=== PATIENT | male | born 1985 | race Caucasian/White ===

== ENCOUNTER 2018-03-24 23:25 | Emergency (ER) | payer OTHER ==
[2018-03-25] MEDS ORDERED: ASPIRIN 81 MG CHEWABLE TABLET ONE (00:10)
[2018-03-25] MEDS ORDERED: MORPHINE 4 MG/ML SYR ONE ×2 (00:59→03:51)
[2018-03-25] MEDS ORDERED: ONDANSETRON 4 MG/2 ML VIAL ONE (00:59)
[2018-03-25 03:23] LABS: Absolute Lymphocytes (CBC) 2.7 K/uL (0.7-4.9); Absolute Monocytes 0.6 K/uL (0.1-1.3); Absolute Neutrophil 4.4 K/uL (1.8-8.0); Basophils % 1.1 % (0-1.3); Eosinophils % 3.8 % (0-4.4); Hematocrit 44.4 % (39.6-49.0); Lymphocytes % 32.9 % (15.3-44.8); MPV 9.9 fL (7.6-11.3); Monocytes % 7.4 % (3.3-12.3); RBC Red Blood Cell Count 5.32 M/uL (4.33-5.43)
--- NOTE | 2018-03-25 03:30 | EDPHYS ---
Physician Documentation [facility] Name: Mat Black Age: 32 yrs Sex: Male : 1985 Arrival Date: 03/24/2018 Time: 23:26 Bed 7 Private MD: ED Physician Prakash Orr HPI: 03/25 00:57 This 32 yrs old Male presents to ER via Wheelchair with complaints of Chest pm1 Pain. 00:57 The patient or guardian reports chest pain that is located primarily in the mid-sternal pm1 area. 00:58 Associated signs and symptoms: Pertinent positives: shortness of breath, Pertinent pm1 negatives: abdominal pain, cough, diaphoresis, dizziness, headache, nausea, near syncope, palpitations, vomiting. The chest pain is described as "Pain". Duration: The patient or guardian reports a single episode, that is still ongoing. Modifying factors: The symptoms are alleviated by nothing. the symptoms are aggravated by exertion. Severity of pain: in the emergency department the pain is unchanged. The patient has not experienced similar symptoms in the past. The patient has not recently seen a physician. Historical: - Allergies: 03/24 23:43 No Known Allergies; ak1 - Home Meds: 23:43 Lisinopril Oral [Active]; Metformin Oral [Active]; carvedilol oral oral [Active]; ak1 Lantus Sub-Q [Active]; Novolog Sub-Q [Active]; - PMHx: 23:43 Diabetes - IDDM; Hyperlipidemia; Hypertension; ak1 - PSHx: 23:43 right knee; left ankle; ak1 - Immunization history:: Adult Immunizations unknown. - Social history:: Smoking status: Patient uses tobacco products, denies chronic smoking, but will smoke occasionally, chewing tobacco, Patient uses alcohol, but reports only rare drinking. - Ebola Screening: : No symptoms or risks identified at this time. ROS: 03/25 00:58 Constitutional: Negative for fever, chills, and weight loss, Eyes: Negative for injury, pm1 pain, redness, and discharge, ENT: Negative for injury, pain, and discharge, Neck: Negative for injury, pain, and swelling. Abdomen/GI: Negative for abdominal pain, nausea, vomiting, diarrhea, and constipation, Back: Negative for injury and pain, : Negative for injury, bleeding, discharge, and swelling. MS/Extremity: Negative for injury and deformity, Skin: Negative for injury, rash, and discoloration, Neuro: Negative for headache, weakness, numbness, tingling, and seizure. Cardiovascular: Positive for chest pain, Negative for edema, orthopnea, palpitations. Respiratory: Positive for shortness of breath, on exertion. Exam: 00:58 Constitutional: This is a well developed, well nourished patient who is awake, alert, pm1 and in no acute distress. Head/Face: Normocephalic, atraumatic. Eyes: Pupils equal round and reactive to light, extra-ocular motions intact. Lids and lashes normal. Conjunctiva and sclera are non-icteric and not injected. Cornea within normal limits. Periorbital areas with no swelling, redness, or edema. ENT: Nares patent. No nasal discharge, no septal abnormalities noted. Tympanic membranes are normal and external auditory canals are clear. Oropharynx with no redness, swelling, or masses, exudates, or evidence of obstruction, uvula midline. Mucous membranes moist. Neck: Trachea midline, no thyromegaly or masses palpated, and no cervical lymphadenopathy. Supple, full range of motion without nuchal rigidity, or vertebral point tenderness. No Meningismus. Chest/axilla: Normal chest wall appearance and motion. Nontender with no deformity. No lesions are appreciated. Cardiovascular: Regular rate and rhythm with a normal S1 and S2. No gallops, murmurs, or rubs. Normal PMI, no JVD. No pulse deficits. Respiratory: Lungs have equal breath sounds bilaterally, clear to auscultation and percussion. No rales, rhonchi or wheezes noted. No increased work of breathing, no retractions or nasal flaring. Abdomen/GI: Soft, non-tender, with normal bowel sounds. No distension or tympany. No guarding or rebound. No evidence of tenderness throughout. Back: No spinal tenderness. No costovertebral tenderness. Full range of motion. Skin: Warm, dry with normal turgor. Normal color with no rashes, no lesions, and no evidence of cellulitis. MS/ Extremity: Pulses equal, no cyanosis. Neurovascular intact. Full, normal range of motion. 00:58 ECG was reviewed by the Attending Physician. NSR Vital Signs: 03/24 23:26 BP 166 / 107; Pulse 98; Resp 18; Temp 97.8(O); Pulse Ox 98% on R/A; Weight 136.08 kg ak1 (R); Height 5 ft. 10 in. (177.80 cm) (R); Pain 7/10; 03/25 00:37 BP 139 / 95; Pulse 84; Resp 18; Pulse Ox 99% ; ea 01:34 BP 138 / 90; Pulse 79; Resp 18; Pulse Ox 96% on R/A; tl2 03:49 BP 130 / 91; Pulse 73; Resp 18; Pulse Ox 96% on R/A; tl2 03/24 23:26 Body Mass Index 43.05 (136.08 kg, 177.80 cm) ak1 MDM: 03/24 23:40 Patient medically screened. pm1 03/25 01:00 Data reviewed: vital signs. Data interpreted: Pulse oximetry: on room air is 99 %. pm1 Interpretation: normal. 03:21 Refusal of service: The patient/guardian displays adequate decision making capability pm1 and despite a detailed discussion of alternatives, benefits, risks, and consequences refuses: Admission to the hospital for further work-up and treatment, Patient does not want to stay in the hospital. He wants to follow up with his PCP. He wants some pain medication prior to going home.. 03/24 23:46 Order name: Basic Metabolic Panel pm1 03/24 23:46 Order name: CBC with Diff pm1 03/24 23:46 Order name: LFT's pm1 03/24 23:46 Order name: Magnesium pm1 03/24 23:46 Order name: NT PRO-BNP pm1 03/24 23:46 Order name: PT-INR pm1 03/24 23:46 Order name: Troponin (emerg Dept Use Only) pm1 03/24 23:46 Order name: XRAY Chest (1 view) pm1 03/24 23:46 Order name: EKG; Complete Time: 23:47 pm1 03/24 23:46 Order name: Basic Metabolic Panel EDMS 03/24 23:46 Order name: Cardiac monitoring; Complete Time: 23:48 pm1 03/24 23:46 Order name: EKG - Nurse/Tech; Complete Time: 23:48 pm1 03/24 23:46 Order name: IV Saline Lock; Complete Time: 00:03 pm1 03/24 23:46 Order name: Labs collected and sent; Complete Time: 00:02 pm1 03/24 23:46 Order name: O2 Per Protocol; Complete Time: 00:02 pm1 03/24 23:46 Order name: O2 Sat Monitoring; Complete Time: 00:03 pm1 Administered Medications: 00:01 Drug: Aspirin 325 mg Route: PO; ea 01:01 Follow up: Response: No adverse reaction ea 00:56 Drug: Zofran 4 mg Route: IVP; Site: right forearm; ea 01:30 Follow up: Response: No adverse reaction; Pain is decreased ea 00:59 Drug: morphine 4 mg Route: IVP; Site: right forearm; ea 01:30 Follow up: Response: No adverse reaction; Pain is decreased ea 03:46 Drug: morphine 4 mg Route: IVP; Site: right forearm; tl2 03:51 Follow up: Response: No adverse reaction; Medication administered at discharge. tl2 Disposition: 05:43 Co-signature as Attending Physician, Prakash Orr MD I agree with the assessment and tw4 plan of care. Disposition: 03/25/18 03:29 Patient has left against medical advice. Impression: Chest pain, unspecified. - Patients states they are going to Home. - Condition is Stable. - Discharge Instructions: Nonspecific Chest Pain. Follow up: Private Physician; When: Upon discharge from the Emergency Department; Reason: Recheck today's complaints, Continuance of care, Re-evaluation by your physician. Follow up: Carlos Yin MD; When: Upon discharge from the Emergency Department; Reason: Recheck today's complaints, Continuance of care, Re-evaluation by your physician. - Problem is new. - Symptoms have improved. Signatures: Dispatcher [employer] EDMS Rachelle King RN RN ak1 Rahat Baer NP RESIDENCE DIRECTOR pm1 Tonja Purdy RN RN tl2 Eden Islas RN RN ea Wadley, Terrence, MD MD tw4 Corrections: (The following items were deleted from the chart) 04:05 03:29 03/25/2018 03:29 Patients has left against medical advice. Impression: Chest tl2 pain, unspecified. Patient states they are going to Home. Condition is Stable. Follow up: Private Physician; When: Upon discharge from the Emergency Department; Reason: Recheck today's complaints, Continuance of care, Re-evaluation by your physician. Follow up: Carlos Yin; When: Upon discharge from the Emergency Department; Reason: Recheck today's complaints, Continuance of care, Re-evaluation by your physician. Problem is new. Symptoms have improved. pm1
--- NOTE | 2018-03-25 03:30 | ER ---
Nurse's Notes [facility] Name: Mat Black Age: 32 yrs Sex: Male : 1985 Arrival Date: 03/24/2018 Time: 23:26 Bed 7 Private MD: Diagnosis: Chest pain, unspecified Presentation: 03/24 23:26 Presenting complaint: Patient states: central chest pain started Saturday. pt c/o SOB ak1 with ambulation. pt c/o increased stress at work. pt stated he is non compliant with home medications. 23:26 Transition of care: patient was not received from another setting of care. Onset of ak1 symptoms was March 23, 2018. Risk Assessment: Do you want to hurt yourself or someone else? Patient reports no desire to harm self or others. Initial Sepsis Screen: Does the patient meet any 2 criteria? No. Patient's initial sepsis screen is negative. Does the patient have a suspected source of infection? No. Patient's initial sepsis screen is negative. Care prior to arrival: None. 23:26 Method Of Arrival: Wheelchair ak1 23:26 Acuity: LILA 3 ak1 Triage Assessment: 23:43 General: Appears in no apparent distress. Behavior is calm, cooperative, pt testing ak1 during triage questions.. Pain: Complains of pain in xyphoid area and mid-sternal area. EENT: No signs and/or symptoms were reported regarding the EENT system. Neuro: No deficits noted. Cardiovascular: Reports chest pain, shortness of breath. Respiratory: Reports shortness of breath on exertion since Today. GI: No signs and/or symptoms were reported involving the gastrointestinal system. : No signs and/or symptoms were reported regarding the genitourinary system. Derm: No signs and/or symptoms reported regarding the dermatologic system. Musculoskeletal: No signs and/or symptoms reported regarding the musculoskeletal system. Historical: - Allergies: 23:43 No Known Allergies; ak1 - Home Meds: 23:43 Lisinopril Oral [Active]; Metformin Oral [Active]; carvedilol oral oral [Active]; ak1 Lantus Sub-Q [Active]; Novolog Sub-Q [Active]; - PMHx: 23:43 Diabetes - IDDM; Hyperlipidemia; Hypertension; ak1 - PSHx: 23:43 right knee; left ankle; ak1 - Immunization history:: Adult Immunizations unknown. - Social history:: Smoking status: Patient uses tobacco products, denies chronic smoking, but will smoke occasionally, chewing tobacco, Patient uses alcohol, but reports only rare drinking. - Ebola Screening: : No symptoms or risks identified at this time. Screenin:46 Abuse screen: Denies threats or abuse. Denies injuries from another. Nutritional ak1 screening: No deficits noted. Tuberculosis screening: No symptoms or risk factors identified. Fall Risk None identified. Assessment: 23:46 Pain: Pain does not radiate. Pain began 1 day ago. ak1 03/25 00:30 Reassessment: lab unable to run blood sample due to blood being lipemic. Scowman tl2 at bedside to redraw blood. 00:46 Reassessment: Patient and/or family updated on plan of care and expected duration. Pain ea level reassessed. Pt complaining of chest pain 10, provider notified, medication administered. Pt tolerated well. No s/s of pain or discomfort noted at this time. 01:46 Reassessment: Patient and/or family updated on plan of care and expected duration. Pain ea level reassessed. Patient is alert, oriented x 3, equal unlabored respirations, skin warm/dry/pink. 02:30 Reassessment: Second blood sample failed, lab at bedside to redraw blood. tl2 02:37 Reassessment: Patient and/or family updated on plan of care and expected duration. Pain ea level reassessed. Patient is alert, oriented x 3, equal unlabored respirations, skin warm/dry/pink. Pt reports pain is decreased. 03:49 Reassessment: Pt states that he does not want to wait for blood samples and wants to tl2 leave AMA. MARINE FUEL DOCK ATTENDANT at bedside to explain risks of leaving AMA, patient verbalized understanding and states he will follow up with PCP. AMA form signed, notified and signed form. Vital Signs: 03/24 23:26 BP 166 / 107; Pulse 98; Resp 18; Temp 97.8(O); Pulse Ox 98% on R/A; Weight 136.08 kg ak1 (R); Height 5 ft. 10 in. (177.80 cm) (R); Pain 7/10; 03/25 00:37 BP 139 / 95; Pulse 84; Resp 18; Pulse Ox 99% ; ea 01:34 BP 138 / 90; Pulse 79; Resp 18; Pulse Ox 96% on R/A; tl2 03:49 BP 130 / 91; Pulse 73; Resp 18; Pulse Ox 96% on R/A; tl2 03/24 23:26 Body Mass Index 43.05 (136.08 kg, 177.80 cm) ak1 ED Course: 03/24 23:26 Patient arrived in ED. ds1 23:32 EKG completed in triage. Results shown to MD. ak1 23:32 Arm band placed on Patient placed in an exam room, on a stretcher, on pulse oximetry, ak1 Patient notified of wait time. 23:40 Triage completed. ak1 23:40 Rahat Baer NP is PHCP. pm1 23:40 Prakash Orr MD is Attending Physician. pm1 23:46 Patient has correct armband on for positive identification. Placed in gown. Bed in low ak1 position. Call light in reach. Side rails up X 1. Pulse ox on. NIBP on. 23:46 Patient maintains SpO2 saturation greater than 95% on room air. ak1 23:47 Eden Islas, BRANDON is Primary Nurse. ea 03/25 00:03 Inserted saline lock: 22 gauge in right forearm, using aseptic technique. Blood tl2 collected. 00:11 X-ray completed. Portable x-ray completed in exam room. Patient tolerated procedure jb2 well. 00:35 XRAY Chest (1 view) In Process Unspecified. EDMS 03:29 Carlos Yin MD is Referral Physician. pm1 03:49 No provider procedures requiring assistance completed. IV discontinued, intact, tl2 bleeding controlled, No redness/swelling at site. Pressure dressing applied. Administered Medications: 00:01 Drug: Aspirin 325 mg Route: PO; ea 01:01 Follow up: Response: No adverse reaction ea 00:56 Drug: Zofran 4 mg Route: IVP; Site: right forearm; ea 01:30 Follow up: Response: No adverse reaction; Pain is decreased ea 00:59 Drug: morphine 4 mg Route: IVP; Site: right forearm; ea 01:30 Follow up: Response: No adverse reaction; Pain is decreased ea 03:46 Drug: morphine 4 mg Route: IVP; Site: right forearm; tl2 03:51 Follow up: Response: No adverse reaction; Medication administered at discharge. tl2 Outcome: 03:49 AMA AMA form signed tl2 03:49 Condition: stable 03:49 Discharge instructions given to patient, family, Instructed on discharge instructions, follow up and referral plans. Demonstrated understanding of instructions, follow-up care. 04:05 Patient left the ED. tl2 Signatures: Dispatcher [employer] EDMS Cr Han jb2 Marva Rizo ds1 Rachelle King RN RN ak1 Rahat Baer, SUSANA MARINE FUEL DOCK ATTENDANT pm1 Tonja Purdy RN RN tl2 Eden Islas RN RN ea Corrections: (The following items were deleted from the chart) 00:39 00:37 BP 107 / 74; Pulse 74bpm; Resp 18bpm; Pulse Ox 99%; ea ea
[2018-03-25 04:18] LABS: ALT/SGPT 87 U/L (12-78); AST/SGOT 52 U/L (15-37); Albumin 3.3 g/dL (3.4-5.0); Alkaline Phosphatase 115 U/L (45-117); BUN Blood Urea Nitrogen 21 mg/dL (7-18); Bicarbonate 26 mmol/L (21-32); Bilirubin Direct < 0.1 mg/dL (0-0.2); Bilirubin Total 0.2 mg/dL (0.2-1.0); Glucose Level 305 mg/dL (74-106); Magnesium 1.9 mg/dL (1.8-2.4); NT PRO-BNP 209 pg/mL (<125); Protein, Total 6.8 g/dL (6.4-8.2); Sodium Level 138 mmol/L (136-145)
[2018-03-25 04:19] LABS: Potassium ND mmol/L (3.5-5.1); Troponin (Emerg Dept Use Only) 0.67 ng/mL (0.0-0.045)
[2018-03-25] MEDS ORDERED: NITROGLYCERIN 1 GM PKT TD ONE (05:12)
[2018-03-25] MEDS ORDERED: ENOXAPARIN 100 MG/ML SYR SQ ONE (05:12)
[2018-03-25] MEDS ORDERED: ENOXAPARIN 30 MG/0.3 ML SQ ONE (05:13)
[2018-03-25 05:53] VITALS: TEMP 97.8
[2018-03-25 06:07] LABS: Protime INR 0.92
[2018-03-25 06:17] VITALS: O2SAT 96
[2018-03-25 06:18] VITALS: BP 130/91
--- NOTE | 2018-03-25 08:15 | RAD REPORT ---
EXAM DESCRIPTION: RAD - Chest Single View - 03/25/2018 12:14 am CLINICAL HISTORY: CHEST PAIN Chest pain. COMPARISON: No comparisons FINDINGS: Portable technique limits examination quality. The lungs are grossly clear. The heart is normal in size. No displaced fractures. IMPRESSION: No acute intrathoracic process suspected.
--- NOTE | 2018-03-25 17:10 | EKG ---
Test Date: 2018-03-24 Test Time: 23:32:54 Management Architect: HALEY MEASUREMENT RESULTS: Intervals: Rate: 87 VT: 140 QRSD: 86 QT: 350 QTc: 421 [place]: P: 25 VT: 140 QRS: 22 T: 10 INTERPRETIVE STATEMENTS: Normal sinus rhythm Normal ECG No previous ECG available for comparison Electronically Signed On 03-25-18 17:07:09 CUSHION SEWER by Zane Sanchez
== END 2018-03-25 04:05 | disposition left against medical advice (07) ==
LOC: ER 23:25
DX: R07.9 Chest pain, unspecified (principal); I10 Essential (primary) hypertension; E78.5 Hyperlipidemia, unspecified; E11.9 Type 2 diabetes mellitus without complications; Z72.0 Tobacco use; Z79.4 Long term (current) use of insulin
CPT/HCPCS: 36415; 71045; 80048; 80076; 83735; 83880; 84484; 85025; 85610; 93005; 96374; 96375; 99284; J1650; J2405

== ENCOUNTER 2018-03-25 04:33 | Inpatient (IN) | payer OTHER ==
--- NOTE | 2018-03-25 05:01 | EDPHYS ---
Physician Documentation [facility] Name: Mat Black Age: 32 yrs Sex: Male : 1985 Arrival Date: 03/25/2018 Time: 04:34 Bed 7 Private MD: ED Physician Prakash Orr HPI: 03/25 04:56 This 32 yrs old Male presents to ER via Ambulatory with complaints of Chest tw4 Pain. 04:56 The patient or guardian reports chest pain that is located primarily in the substernal tw4 area. The pain does not radiate. Associated signs and symptoms: The patient has no apparent associated signs or symptoms. The chest pain is described as a heaviness. Duration: The patient or guardian reports a single episode, that is now resolved. Modifying factors: The symptoms are alleviated by nothing. the symptoms are aggravated by nothing. Severity of pain: At its worst the pain was moderate in the emergency department the pain is unchanged. The patient has not experienced similar symptoms in the past. Historical: - Allergies: 04:49 No Known Allergies; tl2 - Home Meds: 04:49 carvedilol Oral [Active]; Lantus Sub-Q [Active]; Metformin Oral [Active]; Novolog Sub-Q tl2 [Active]; losartan oral oral [Active]; - PMHx: 04:49 Diabetes - IDDM; Hyperlipidemia; Hypertension; tl2 - PSHx: 04:49 Hernia repair; tl2 - Immunization history:: Adult Immunizations up to date, Adult Immunizations up to date. - Social history:: Smoking status: Patient/guardian denies using tobacco, Smoking status: Patient/guardian denies using tobacco. - Ebola Screening: : No symptoms or risks identified at this time No symptoms or risks identified at this time. ROS: 04:56 Constitutional: Negative for fever, chills, and weight loss, Eyes: Negative for injury, tw4 pain, redness, and discharge, Respiratory: Negative for shortness of breath, cough, wheezing, and pleuritic chest pain, Abdomen/GI: Negative for abdominal pain, nausea, vomiting, diarrhea, and constipation, Back: Negative for injury and pain, MS/Extremity: Negative for injury and deformity, Skin: Negative for injury, rash, and discoloration, Neuro: Negative for headache, weakness, numbness, tingling, and seizure. 04:56 Cardiovascular: Positive for chest pain, Negative for edema, orthopnea, palpitations, paroxysmal nocturnal dyspnea. Exam: 04:56 Constitutional: This is a well developed, well nourished patient who is awake, alert, tw4 and in no acute distress. Head/Face: Normocephalic, atraumatic. Chest/axilla: Normal chest wall appearance and motion. Nontender with no deformity. No lesions are appreciated. Cardiovascular: Regular rate and rhythm with a normal S1 and S2. No gallops, murmurs, or rubs. Normal PMI, no JVD. No pulse deficits. Respiratory: Lungs have equal breath sounds bilaterally, clear to auscultation and percussion. No rales, rhonchi or wheezes noted. No increased work of breathing, no retractions or nasal flaring. Abdomen/GI: Soft, non-tender, with normal bowel sounds. No distension or tympany. No guarding or rebound. No evidence of tenderness throughout. Back: No spinal tenderness. No costovertebral tenderness. Full range of motion. MS/ Extremity: Pulses equal, no cyanosis. Neurovascular intact. Full, normal range of motion. Neuro: Awake and alert, GCS 15, oriented to person, place, time, and situation. Cranial nerves II-XII grossly intact. Motor strength 5/5 in all extremities. Sensory grossly intact. Cerebellar exam normal. Normal gait. Vital Signs: 04:49 BP 140 / 104; Pulse 97; Resp 18; Temp 97.8(O); Pulse Ox 97% on R/A; Weight 136.08 kg; tl2 Height 5 ft. 10 in. (177.80 cm); Pain 0/10; 05:53 BP 138 / 90; Pulse 90; Resp 18; Pulse Ox 97% on R/A; ea 04:49 Body Mass Index 43.05 (136.08 kg, 177.80 cm) tl2 MDM: 04:48 Patient medically screened. tw4 04:56 Differential diagnosis: abnormal EKG, acute myocardial infarction, cholecystitis, tw4 Cholelithiasis costochondritis, herpes zoster, hiatal hernia, peptic ulcer disease, pericarditis, pleurisy, pneumonia, pulmonary embolus, stable angina, thoracic aortic disection. Data reviewed: vital signs, nurses notes. Data interpreted: nurse monitoring: rhythm is normal sinus rhythm, Pulse oximetry: Interpretation: normal. Counseling: I had a detailed discussion with the patient and/or guardian regarding: the historical points, exam findings, and any diagnostic results supporting the discharge/admit diagnosis. Physician consultation: Charmaine Bolanos MD regarding admission, to the telemetry unit. patient's condition, need to evaluate the patient as soon as possible, and will see patient in inpatient room. 03/25 04:59 Order name: Lipid Profile tw4 03/25 05:21 Order name: Lipid Profile [facility] 03/25 05:21 Order name: Lipid Profile [facility] 03/25 05:21 Order name: Troponin I [facility] 03/25 05:21 Order name: Troponin I [facility] 03/25 05:21 Order name: Troponin I [facility] 03/25 05:22 Order name: CONS Physician Consult [facility] 03/25 05:22 Order name: Heart Healthy [facility] 03/25 05:22 Order name: Echo with Doppler [facility] 03/25 05:22 Order name: EKG Electrocardiogram [facility] 03/25 05:23 Order name: Lipase fc 03/25 05:23 Order name: Amylase, Serum fc 03/25 05:22 Order name: EKG Electrocardiogram [facility] EC:59 Rate is 94 beats/min. Rhythm is regular. QRS [place] is Normal. [place] interval is normal. QRS tw4 interval is normal. QT interval is normal. No Q waves. T waves are Normal. No ST changes noted. Clinical impression: NSR w/ Non-specific ST/T Changes and Abnormal EKG without significant change. Interpreted by me. Reviewed by me. Administered Medications: 05:07 Drug: Nitro-Bid Ointment 2 % 1 inches Route: Transdermal; Site: anterior chest wall; ea 05:09 Drug: Lovenox 1 mg/kg Route: Sub-Q; Site: left lower abdomen; ea 06:00 Follow up: Response: No adverse reaction ea Disposition: 03/25/18 05:00 Hospitalization ordered by Charmaine Bolanos for Inpatient Admission. Preliminary diagnosis are Non-ST elevation (NSTEMI) myocardial infarction, Hyperlipidemia, unspecified. - Bed requested for Telemetry/MedSurg (Inpatient). - Status is Inpatient Admission. ea - Condition is Fair. - Problem is new. - Symptoms have improved. UTI on Admission? No Signatures: Dispatcher [employer] Blanka Figueroa RN BRANDON cg Tonja Purdy RN RN tl2 Eden Islas RN RN ea Wadley, Terrence, MD MD tw4 Corrections: (The following items were deleted from the chart) 05:24 05:00 Hospitalization Ordered by Charmaine Bolnaos MD for Inpatient Admission. Preliminary cg diagnosis is Non-ST elevation (NSTEMI) myocardial infarction; Hyperlipidemia, unspecified. Bed requested for Telemetry/MedSurg (Inpatient). Status is Inpatient Admission. Condition is Fair. Problem is new. Symptoms have improved. UTI on Admission? No. tw4 06:21 05:24 03/25/2018 05:00 Hospitalization Ordered by Charmaine Bolanos MD for Inpatient ea Admission. Preliminary diagnosis is Non-ST elevation (NSTEMI) myocardial infarction; Hyperlipidemia, unspecified. Bed requested for Telemetry/MedSurg (Inpatient). Status is Inpatient Admission. Condition is Fair. Problem is new. Symptoms have improved. UTI on Admission? No. cg
--- NOTE | 2018-03-25 05:01 | ER ---
Nurse's Notes [facility] Name: Mat Black Age: 32 yrs Sex: Male : 1985 Arrival Date: 03/25/2018 Time: 04:34 Bed 7 Private MD: Diagnosis: Non-ST elevation (NSTEMI) myocardial infarction;Hyperlipidemia, unspecified Presentation: 03/25 04:45 Presenting complaint: Patient states: Pt had previously left AMA. Critical lab result tl2 came back with elevated troponin. MD notified and requested that we call pt to return to ED. Transition of care: patient was not received from another setting of care. Onset of symptoms was March 23, 2017. Risk Assessment: Do you want to hurt yourself or someone else? Patient reports no desire to harm self or others. Initial Sepsis Screen: Does the patient meet any 2 criteria? No. Patient's initial sepsis screen is negative. Does the patient have a suspected source of infection? No. Patient's initial sepsis screen is negative. Care prior to arrival: None. 04:45 Method Of Arrival: Ambulatory tl2 04:45 Acuity: LILA 2 tl2 Triage Assessment: 04:49 General: Appears in no apparent distress. comfortable, Behavior is calm, cooperative, tl2 appropriate for age. Pain: Denies pain. Neuro: Level of Consciousness is awake, alert, obeys commands, Oriented to person, place, time, situation. Cardiovascular: Chest pain resolved at this time. Pt received morphine at 0410. Respiratory: Airway is patent Respiratory effort is even, unlabored, Respiratory pattern is regular, symmetrical. GI: No signs and/or symptoms were reported involving the gastrointestinal system. : No signs and/or symptoms were reported regarding the genitourinary system. Derm: Skin is pink, warm \T\ dry. Historical: - Allergies: 04:49 No Known Allergies; tl2 - Home Meds: 04:49 carvedilol Oral [Active]; Lantus Sub-Q [Active]; Metformin Oral [Active]; Novolog Sub-Q tl2 [Active]; losartan oral oral [Active]; - PMHx: 04:49 Diabetes - IDDM; Hyperlipidemia; Hypertension; tl2 - PSHx: 04:49 Hernia repair; tl2 - Immunization history:: Adult Immunizations up to date, Adult Immunizations up to date. - Social history:: Smoking status: Patient/guardian denies using tobacco, Smoking status: Patient/guardian denies using tobacco. - Ebola Screening: : No symptoms or risks identified at this time No symptoms or risks identified at this time. Screenin:45 Abuse screen: Denies threats or abuse. Nutritional screening: No deficits noted. ea Tuberculosis screening: No symptoms or risk factors identified. Fall Risk IV access (20 points). Assessment: 04:49 General: see triage assessment. tl2 04:55 Pain: Pain does not radiate. Pain began 1 day ago. tl2 06:16 Reassessment: Patient appears in no apparent distress at this time. Patient and/or tl2 family updated on plan of care and expected duration. Pain level reassessed. Patient is alert, oriented x 3, equal unlabored respirations, skin warm/dry/pink. pt stable and ready for transport to floor. Vital Signs: 04:49 BP 140 / 104; Pulse 97; Resp 18; Temp 97.8(O); Pulse Ox 97% on R/A; Weight 136.08 kg; tl2 Height 5 ft. 10 in. (177.80 cm); Pain 0/10; 05:53 BP 138 / 90; Pulse 90; Resp 18; Pulse Ox 97% on R/A; ea 04:49 Body Mass Index 43.05 (136.08 kg, 177.80 cm) tl2 ED Course: 04:34 Patient arrived in ED. ds1 04:40 Arm band placed on right wrist. Patient placed in an exam room, on a stretcher, on ea ekg monitor, on pulse oximetry. 04:45 Tonja Purdy RN is Primary Nurse. tl2 04:45 Inserted saline lock: 20 gauge in right forearm, using aseptic technique. Patient ea maintains SpO2 saturation greater than 95% on room air. 04:46 Triage completed. tl2 04:46 Patient has correct armband on for positive identification. Placed in gown. Bed in low ea position. Call light in reach. bus monitor on. Pulse ox on. NIBP on. 04:48 Prakash Orr MD is Attending Physician. tw4 04:49 EKG completed in triage. Results shown to MD. tl2 04:59 Charmaine Bolanos MD is Hospitalizing Provider. tw4 05:52 No provider procedures requiring assistance completed. Patient admitted, IV remains in ea place. Administered Medications: 05:07 Drug: Nitro-Bid Ointment 2 % 1 inches Route: Transdermal; Site: anterior chest wall; ea 05:09 Drug: Lovenox 1 mg/kg Route: Sub-Q; Site: left lower abdomen; ea 06:00 Follow up: Response: No adverse reaction ea Outcome: 05:00 Decision to Hospitalize by Provider. tw4 05:10 Instructed on the need for admit, Demonstrated understanding of instructions. ea 06:16 Admitted to Tele accompanied by nurse, family with patient, via wheelchair, room 422. tl2 06:16 Condition: stable 06:16 Admitted to Med/surg accompanied by nurse, via wheelchair, room 422, on monitor, with ea chart, Report called to Alona TAYLOR 06:16 Condition: stable 06:21 Patient left the ED. ea Signatures: Marva Rizo ds1 Tonja Purdy RN RN tl2 Eden Islas RN RN Parkash Tellez MD MD tw4
[2018-03-25] MEDS ORDERED: ACETAMINOPHEN 500 MG TAB PO PRN (05:17)
[2018-03-25] MEDS ORDERED: ALPRAZOLAM 0.25 MG TABLET PO PRN (05:17)
[2018-03-25] MEDS ORDERED: MORPHINE 4 MG/ML SYR IV PRN ×2 (05:17→17:54)
[2018-03-25 06:02] LABS: Amylase Level 18 U/L (25-115); HDL Cholesterol 23 mg/dL (40-60); LDL Cholesterol, Calculated ND (<130); Lipase 225 U/L (73-393)
[2018-03-25 06:18] LABS: LDL, Direct 76 mg/dL (100-129)
[2018-03-25] MEDS: NA CHLORIDE 0.9% 1,000 ML IV SCH ×2 (06:47→12:44)
--- NOTE | 2018-03-25 07:16 | P.HP ---
Certification for Inpatient Patient admitted to: Inpatient With expected LOS: >2 Midnights Patient will require the following post-hospital care: None Practitioner: I am a practitioner with admitting privileges, knowledge of patient current condition, hospital course, and medical plan of care. Services: Services provided to patient in accordance with Admission requirements found in Title 42 Section 412.3 of the Code of Federal Regulations Patient History Date of Service: 03/25/18 Reason for admission: CHEST PAIN RULE OUT ACUTE CORONARY SYNDROME /NON STEMI History of Present Illness: Patient is a 32-year-old gentleman came into the hospital with sternal chest pain. Pain was radiating to his left arm. Patient is morbidly obese with a BMI of 43. He was short of breath he came into the hospital for further evaluation. Patient has a history of type 2 diabetes and hypertriglyceridemia. Patient's triglycerides were in the 3000. His initial troponin came back elevated at 0.67. It appears he was initially discharged from the emergency room but returned back to the emergency room. Still having pain of a 2/[address] on nitropaste on him. Cardiology is consulted. Patient will remain NPO. He will need a Cardiology evaluation this morning. Patient may need further intervention pending Cardiology recommendations. Continue with anti-platelet therapy, statin therapy, beta-yfn therapy, anticoagulation. Will get an echocardiogram as well. If patient's chest pain worsens patient may need to go to ICU. Patient will need to be inpatient admission because of his non ST elevation myocardial infarction. Allergies No Known Allergies Allergy (Unverified 03/25/18 05:39) Home Medications: Carvedilol 12.5 mg PO BID 03/25/18 Insulin Glargine,Hum.rec.anlog [Lantus Solostar] 75 units SQ BID 03/25/18 Insulin Lispro [Humalog] 25 unit SQ TIDWM 03/25/18 Losartan Potassium 25 mg PO DAILY 03/25/18 Metformin ER [Glucophage ER] 1,000 mg PO BID 03/25/18 - Past Medical/Surgical History -: Type 2 diabetes -: morbid obesity -: obesity hypoventilation syndrome -: hypertriglyceridemia Past Surgical History: Patient denies surgical history - Family History Father Medical History: Heart disease - Social History Smoking Status: Never smoker Alcohol use: No CD- Drugs: No Review of Systems 10-point ROS is otherwise unremarkable Physical Examination - Vital Signs Temperature: 97.8 F Blood Pressure: 138/90 Pulse: 90 Respirations: 18 Pulse Ox (%): 95 - Physical Exam General: Alert, In no apparent distress, Oriented x3 HEENT: Atraumatic, PERRLA, Mucous membr. moist/pink, EOMI, Sclerae nonicteric Neck: Supple, 2+ carotid pulse no bruit, No LAD, Without JVD or thyroid abnormality Respiratory: Clear to auscultation bilaterally, Normal air movement Cardiovascular: Regular rate/rhythm, Normal S1 S2, No murmurs Gastrointestinal: Normal bowel sounds, Soft and benign, Non-distended, No tenderness Musculoskeletal: No clubbing, No swelling, No tenderness Integumentary: No rashes Neurological: Normal gait, Normal speech, Normal strength at 5/5 x4 extr, Normal tone, Sensation intact, Cranial nerves 3-12 intact, Normal affect Lymphatics: No axilla or inguinal lymphadenopathy - Studies Laboratory Data (last 24 hrs) 03/25/18 05:08: Amylase 18 L, Lipase 225 03/25/18 05:08: Triglycerides 3355 H, Cholesterol 232 H, LDL Cholesterol Direct 76 L, HDL Cholesterol 23 L, Cholesterol/HDL Ratio 10.09 Assessment & Plan - Problems (Diagnosis) (1) Non-STEMI (non-ST elevated myocardial infarction) Current Visit: Yes Status: Acute (2) Type 2 diabetes mellitus Current Visit: Yes Status: Acute (3) Hypertriglyceridemia Current Visit: Yes Status: Acute - Plan 1. Serial troponins and EKG 2. Cardiology consultation 3. Echocardiogram and further testing pending cardiology evaluation and recommendations 4. Anti-platelet therapy, anti coagulation, beta-yfn, statin, nitropaste as needed, and O2 as needed 5. IV morphine for pain 6. Nitro p.r.n. 7. lopid/fish oil; repeat lipid profile in a.m. 8. hemoglobin A1c 9. GI and DVT prophylaxis Discharge Plan: Home Plan to discharge in: Greater than 2 days - Advance Directives Does patient have a Living Will: No Does patient have a Durable POA for Healthcare: No - Code Status/Comfort Care Code Status Assessed: Yes Code Status: Full Code Critical Care: No Time Spent Managing PTS Care (In Minutes): 50
[2018-03-25] MEDS ORDERED: NITROGLYCERIN 1 GM PKT TD ONE (07:19)
[2018-03-25] MEDS: INSULIN GLARGINE 100 UNITS/ML SQ SCH ×2 (09:00→22:06)
[2018-03-25] MEDS: ENOXAPARIN 40 MG/0.4 ML SQ SCH (09:00)
[2018-03-25] MEDS ORDERED: ASPIRIN 325 MG TAB PO SCH (09:00)
[2018-03-25] MEDS: GEMFIBROZIL 600 MG TAB PO SCH ×2 (09:34→22:09)
[2018-03-25] MEDS: METOPROLOL TAR 50 MG TAB PO SCH ×2 (09:35→22:06)
[2018-03-25] MEDS: DOCOSAHEXANOIC AC/EPA 1000 MG PO SCH ×2 (09:35→22:06)
[2018-03-25 10:03] VITALS: BMI 43.0
[2018-03-25] MEDS ORDERED: HEPA 1000U/500MLS 1,000 UNIT/500 ML BAG IV ONE (14:42)
[2018-03-25] MEDS ORDERED: MIDAZOLAM HCL 2 MG/2 ML INJ ONE (14:42)
[2018-03-25] MEDS ORDERED: LIDOCAINE 1% MPF 30 ML VIAL ONE (14:43)
[2018-03-25] MEDS ORDERED: NA CHLORIDE 0.9% 50 ML ONE (14:43)
[2018-03-25] MEDS ORDERED: FENTANYL CITR 100 MCG/2 ML ONE ×2 (14:43→15:46)
[2018-03-25] MEDS ORDERED: PRASUGREL (EFFIENT) 10 MG TAB ONE (16:17)
[2018-03-25] MEDS ORDERED: ASPIRIN 325 MG TAB ONE (16:17)
--- NOTE | 2018-03-25 17:09 | EKG ---
Test Date: 2018-03-25 Test Time: 04:38:30 Dog Handler Or Trainer: CARLITOS MEASUREMENT RESULTS: Intervals: Rate: 94 VA: 144 QRSD: 84 QT: 342 QTc: 427 [place]: P: 27 VA: 144 QRS: 10 T: 23 INTERPRETIVE STATEMENTS: Normal sinus rhythm Possible Anterior infarct, age undetermined Abnormal ECG Compared to ECG 03/24/2018 23:32:54 Myocardial infarct finding now present Electronically Signed On 03-25-18 17:07:01 CARPET INSPECTOR FINISHED by Zane Sanchez
--- NOTE | 2018-03-25 17:42 | ECHO ---
HEIGHT: 5 ft 10 in WEIGHT: 300 lb 0 oz DATE OF STUDY: 03/25/[address]: Charmaine Bolanos MD 2-DIMENSIONAL: YES M.MODE: YES DOPPLER: YES COLOR FLOW: YES TDS: YES PORTABLE: NO DEFINITY: NO BUBBLE STUDY: NO DIAGNOSIS: CHEST PAIN. RULE OUT ACUTE CORONARY SYNDROME CARDIAC HISTORY: CATHERIZATION: NO SURGERY: NO PROSTHETIC VALVE: NO PACEMAKER: NO MEASUREMENTS (cm) DIASTOLIC (NORMALS) SYSTOLIC (NORMALS) IVSd 1.3 (0.6-1.2) LA Diam 3.9 (1.9-4.0) LVEF 55% LVIDd 4.0 (3.5-5.7) LVIDs 2.9 (2.0-3.5) %FS 28% LVPWd 1.3 (0.6-1.2) Ao Diam 2.8 (2.0-3.7) 2 DIMENSIONAL ASSESSMENT: RIGHT ATRIUM: NORMAL LEFT ATRIUM: NORMAL RIGHT VENTRICLE: NORMAL LEFT VENTRICLE: NORMAL TRICUSPID VALVE: NORMAL MITRAL VALVE: NORMAL PULMONIC VALVE: NORMAL AORTIC VALVE: NORMAL PERICARDIAL EFFUSION: NONE AORTIC ROOT: NORMAL LEFT VENTRICULAR WALL MOTION: NORMAL. DOPPLER/COLOR FLOW: NORMAL. COMMENTS: TECHNICALLY DIFFICULT STUDY. GROSSLY NORMAL LEFT VENTRICULAR SIZE AND EJECTION FRACTION. NO WALL MOTION ABNORMALITIES. NO EFFUSION. TECHNOLOGIST: ESTHELA DIAZ RDCS
[2018-03-25] MEDS ORDERED: ZOLPIDEM TARTRATE 5 MG TABLET PO PRN (17:55)
[2018-03-25] MEDS ORDERED: NA CHLORIDE 0.9% 1,000 ML IV SCH (18:00)
[2018-03-25 19:49] VITALS: O2SAT 96
[2018-03-25 20:35] LABS: Urine Appearance CLEAR; Urine Bilirubin NEGATIVE (NEG); Urine Blood TRACE (NEG); Urine Color YELLOW; Urine Glucose 2+ (NEG); Urine Protein 2+ (NEG); Urine Specific Gravity >=1.030 (1.005-1.030)
[2018-03-25] MEDS ORDERED: ATORVASTATIN 80 MG TAB PO SCH (21:00)
[2018-03-25 21:22] LABS: Urine Microscopic Reflex ORDER UMIC
[2018-03-25 21:42] LABS: Urine Bacteria <20 /HPF (NONE SEEN); Urine Culture Reflex Order NOT NEEDED
--- NOTE | 2018-03-26 00:40 | CON ---
Date of Consultation: 03/25/2018 The patient was admitted to Dr. Bolanos's service on 03/25/2018, I saw the patient on 03/25/2018. Reason For Consultation: Non-ST elevation myocardial infarction. History Of Present Illness: Mr. 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 He has many risk factors including obesity, diabetes, hypertension, high cholesterol, and high triglyceride. He takes Coreg, metformin, insulin, and losartan at home. He is supposed to be on Lopid, but does not t shady it because of his schedule. He came in with classic symptoms for chest pain. The only atypical feature is that his symptoms lasted too long, but he has been having substernal chest pressure with e xertion that has been going on for about 3 days. The pain is constant. He has some shortness of edwin ath, but no diaphoresis, nausea, or vomiting. He denied PND, orthopnea, pedal edema, palpitations, o r syncope. Past Medical History: As stated above. Allergies: NONE. Review of Systems: Negative. Social History: Negative. Family History: Positive for heart disease. Medications: Listed earlier. Physical Examination: Vital Signs: Stable. He was afebrile. No acute distress. Sinus rhythm. HEENT: Negative. Neck: Supple, no bruit. Chest: Clear. Cardiac: Exam revealed a regular rhythm and rate. No murmurs, gallops, or rubs. Abdomen: Benign. Extremities: Revealed no clubbing, cyanosis, or edema. Diagnostic Data: Basically triglyceride was 3355, cholesterol of 232, HDL 23, and troponin 0.67. Impression And Plan: Non-ST elevation myocardial infarction in a very young patient with many risk f actors including obesity, diabetes, hypertension, and mixed dyslipidemia. He needs to be on aspirin. He needs to be on beta blockers like he is. He needs to be on insulin and losartan. Continue the metformin for now. He definitely needs to be on fenofibrate. He needs to have a heart catheterizati on to define his coronary anatomy. He understands the risk and the benefits of the procedure and he agrees to proceed. We will proceed with the procedure today. Case was discussed with the primary ca re physician. GYPSY/KHOI Voice ID: [id number] Report ID: [id number]
--- NOTE | 2018-03-26 03:02 | OP ---
Surgeon: Zane Sanchez MD Supervisor Whipped Topping: Jose R Mtz. Total conscious sedation was 45 minutes. The patient received aspirin, Effient, Angiomax during the procedure. He will be on aspirin, Plavix, and his home medication, and definitely an anti mixed dysl ipidemia medication. I will discuss that with his admitting physician. He can go home tomorrow. Procedure: Left heart catheterization with selective coronary arteriogram and right coronary artery stent. Indication: Non-ST elevation myocardial infarction. Description Of Procedure: The patient was prepped and draped in the routine sterile fashion in the c ath lab. He was given 4 mg of Versed and 100 of fentanyl for sedation. Right common femoral artery access was obtained with a 6-Hebrew sheath. Angio-Seal was used to close the case. Diagnostic santos terization revealed a normal left main. He had some moderate plaquing in the diagonal. The LAD was fairly normal. 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 His RCA was dominant. He had a 90% distal RCA lesion. A [place] wire with 3DRC guide with side hole and 3.0 x 12 Synergy stent were used to stent the distal RCA from 90% to 0%. There were no comp lications. Blood Loss: 5 cc. Postoperative Diagnosis: Status post successful primary right coronary artery stent. GYPSY/KHOI Voice ID: [id number] Report ID: [id number]
[2018-03-26 04:42] LABS: Absolute Lymphocytes (CBC) 1.9 K/uL (0.7-4.9); Absolute Monocytes 0.7 K/uL (0.1-1.3); Absolute Neutrophil 5.3 K/uL (1.8-8.0); Basophils % 0.6 % (0-1.3); Eosinophils % 3.7 % (0-4.4); Hematocrit 42.5 % (39.6-49.0); Lymphocytes % 23.3 % (15.3-44.8); RBC Red Blood Cell Count 5.14 M/uL (4.33-5.43)
[2018-03-26 05:05] LABS: HDL Cholesterol 25 mg/dL (40-60); LDL Cholesterol, Calculated ND (<130)
[2018-03-26 05:18] LABS: LDL, Direct 81 mg/dL (100-129)
[2018-03-26 05:30] LABS: Potassium 4.2 mmol/L (3.5-5.1)
[2018-03-26 08:39] VITALS: BP 136/83; TEMP 97.8
[2018-03-26] MEDS: DOCOSAHEXANOIC AC/EPA 1000 MG PO SCH (09:00)
[2018-03-26] MEDS ORDERED: CLOPIDOGREL 75 MG TABLET PO SCH (09:00)
[2018-03-26] MEDS ORDERED: ASPIRIN EC 81 MG TAB PO SCH (09:00)
[2018-03-26] MEDS: INSULIN GLARGINE 100 UNITS/ML SQ SCH (09:00)
[2018-03-26] MEDS: ENOXAPARIN 40 MG/0.4 ML SQ SCH (09:00)
[2018-03-26] MEDS: METOPROLOL TAR 50 MG TAB PO SCH (09:57)
[2018-03-26] MEDS: GEMFIBROZIL 600 MG TAB PO SCH (09:58)
--- NOTE | 2018-03-26 15:53 | EKG ---
Test Date: 2018-03-26 Test Time: 09:09:13 Space Engineer: JÚNIOR MEASUREMENT RESULTS: Intervals: Rate: 88 CT: 144 QRSD: 86 QT: 334 QTc: 404 [place]: P: 30 CT: 144 QRS: 18 T: -7 INTERPRETIVE STATEMENTS: Normal sinus rhythm Normal ECG Compared to ECG 03/25/2018 04:38:30 Anterior infarct finding is no longer present Electronically Signed On 03-26-18 15:53:30 GUN TESTER by Carlos Yin
--- NOTE | 2018-03-26 16:07 | P.SSS ---
Patient History Date of Service: 03/26/18 Reason for admission: CHEST PAIN RULE OUT ACUTE CORONARY SYNDROME /NON STEMI History of Present Illness: See HPI Allergies No Known Allergies Allergy (Unverified 03/25/18 05:39) Home Medications: Carvedilol 12.5 mg PO BID 03/25/18 Insulin Glargine,Hum.rec.anlog [Lantus Solostar] 75 units SQ BID 03/25/18 Insulin Lispro [Humalog] 25 unit SQ TIDWM 03/25/18 Losartan Potassium 25 mg PO DAILY 03/25/18 Metformin ER [Glucophage ER*] 1,000 mg PO BID 03/25/18 Atorvastatin Calcium [Lipitor] 80 mg PO BEDTIME #30 tab 03/26/18 Clopidogrel Bisulfate [Plavix*] 75 mg PO DAILY #30 tablet 03/26/18 Gemfibrozil [Lopid*] 600 mg PO BID #60 tab 03/26/18 - Past Medical/Surgical History Has patient received pneumonia vaccine in the past: No Diabetic: Yes -: Type 2 diabetes -: morbid obesity -: hypertriglyceridemia -: hypertriglyceridemia -: Left ankle Sx and Right Knee - Family History Father -: Heart disease - Social History Smoking Status: Never smoker Alcohol use: No CD- Drugs: No Caffeine use: Yes Place of Residence: Home Review of Systems 10-point ROS is otherwise unremarkable Physical Examination - Vital Signs Temperature: 97.8 F Blood Pressure: 136/83 Pulse: 80 Respirations: 20 Pulse Ox (%): 97 - Physical Exam General: Alert, In no apparent distress HEENT: Atraumatic, PERRLA, Mucous membr. moist/pink, EOMI, Sclerae nonicteric Neck: Supple, 2+ carotid pulse no bruit, No LAD, Without JVD or thyroid abnormality Respiratory: Clear to auscultation bilaterally, Normal air movement Cardiovascular: Regular rate/rhythm, Normal S1 S2 Gastrointestinal: Normal bowel sounds, No tenderness Musculoskeletal: No tenderness Integumentary: No rashes Neurological: Normal gait, Normal speech, Normal strength at 5/5 x4 extr, Normal tone, Normal affect Lymphatics: No axilla or inguinal lymphadenopathy - Diagnosis (Problem(s)) (1) Hypertriglyceridemia Onset Date: 03/26/18 Status: Acute (2) Non-STEMI (non-ST elevated myocardial infarction) Onset Date: 03/26/18 Status: Acute (3) Type 2 diabetes mellitus Onset Date: 03/26/18 Status: Acute Treatment Summary: Overall during the hospital stay patient remained stable Patient was initially admitted to the hospital for non ST elevation MS with troponin x2 elevated along with the EKG changes. Cardiology was consulted who recommended cardiac catheterization. Patient had cardiac catheterization done and had 2 stents placed in his PAEZ and OM. Patient started on aspirin Plavix and Lipitor gemfibrozil along with beta-yfn. Patient was asked to follow up with his primary care provider. Patient tolerated the procedure well and thus was discharged home under stable condition. Patient was asked to be on a low-fat low-cholesterol diet and establish care with a primary care provider to have adequate followup. Patient has to understanding and thus was discharged home under stable condition - Disposition Disposition: ROUTINE DISCHARGE Condition: GOOD Diet: Regular Activity: Ad carmelo
--- NOTE | 2018-03-26 20:14 | PN ---
Date of Progress Note: 03/26/2018 Mr. Black is a 32-year-old with unfortunate complicated past medical history of diabetes, hypertensi on, dyslipidemia. He came in with subendocardial AK yesterday. Catheterization showed a severe dist al RCA stenosis. He had a stent placed, a 3.0 x 12 Synergy stent with 0% residual. 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 The circumflex and LAD were clear of disease. The patient is on aspirin, Plavix. He will be sent home on aspirin and Plav ix, continue his home medication and also added TriCor 145 mg daily. Overnight he did well. No ches t pain. The right groin is intact. Telemetry showed sinus rhythm. He will see me in the office in 2 weeks. DANELLE Voice ID: [id number] Report ID: [id number]
== END 2018-03-26 10:04 | disposition home or self-care (01) | DRG 246 ==
LOC: ER 04:33 → OBSVTOIN 05:40 → ERHOLD 05:40 → 4TH 05:54
PROVIDERS: ADMIT Hospitalist; ATTEND Family Medicine
PROC: 4A023N7 Measurement of Cardiac Sampling and Pressure, Left Heart, Percutaneous Approach (ICD-10-PCS; principal; 2018-03-25)
PROC: 027034Z Dilation of Coronary Artery, One Artery with Drug-eluting Intraluminal Device, Percutaneous Approach (ICD-10-PCS; 2018-03-25)
PROC: B2111ZZ Fluoroscopy of Multiple Coronary Arteries using Low Osmolar Contrast (ICD-10-PCS; 2018-03-25)
DX: I25.10 Atherosclerotic heart disease of native coronary artery without angina pectoris (principal); I21.4 Non-ST elevation (NSTEMI) myocardial infarction; Z68.41 Body mass index [BMI] 40.0-44.9, adult; I10 Essential (primary) hypertension; E11.9 Type 2 diabetes mellitus without complications; Z79.4 Long term (current) use of insulin; E78.5 Hyperlipidemia, unspecified; E78.1 Pure hyperglyceridemia; E66.01 Morbid (severe) obesity due to excess calories; Z79.02 Long term (current) use of antithrombotics/antiplatelets
CPT/HCPCS: 36415; 71045; 80048; 80061; 80076; 81003; 81015; 82150; 82962; 83690; 83735; 83880; 84132; 84484; 85025; 85610; 92928; 93005; 93306; 93454; 96372; 96374; 96375; 99284; 99285; C1725; C1760; C1893; J0583; J1650; J2250; J2405; J3010; J7030

== ENCOUNTER 2019-05-07 14:48 | Inpatient (IN) | payer OTHER ==
[2019-05-07] MEDS ORDERED: PROMETHAZINE INJ 25 MG/ML AMP ONE (15:48)
[2019-05-07] MEDS ORDERED: FENTANYL CITR 100 MCG/2 ML ONE ×2 (15:49→19:02)
[2019-05-07] MEDS ORDERED: NA CHLORIDE 0.9% 1,000 ML ONE ×2 (15:49→16:09)
[2019-05-07 16:13] LABS: Absolute Lymphocytes (CBC) 1.6 K/uL (0.7-4.9); Basophils % 0.7 % (0-1.3); Hematocrit 46.3 % (39.6-49.0); Lymphocytes % 14.6 % (15.3-44.8); MPV 9.7 fL (7.6-11.3)
--- NOTE | 2019-05-07 16:56 | RAD REPORT ---
EXAM DESCRIPTION: US - Abdomen Exam Limited - 05/07/2019 4:46 pm CLINICAL HISTORY: ABD PAIN COMPARISON: No comparisons FINDINGS: No gallstones, sludge or other abnormalities within the gallbladder lumen. There is no wal l thickening or pericholecystic fluid. No common duct stone or biliary tree dilatation identified. IMPRESSION: Normal gallbladder and biliary tree ultrasound.
[2019-05-07 17:48] LABS: Albumin 2.9 g/dL (3.4-5.0); Bilirubin Total 0.6 mg/dL (0.2-1.0); Protein, Total 7.8 g/dL (6.4-8.2)
[2019-05-07 17:49] LABS: Potassium 5.3 mmol/L (3.5-5.1)
[2019-05-07 17:51] LABS: Bilirubin Direct 0.4 mg/dL (0-0.2)
[2019-05-07] MEDS ORDERED: ALBUTEROL 2.5 MG/3 ML NEB SOL ONE (18:25)
[2019-05-07] MEDS ORDERED: INSULIN -REGULAR HUMAN 50 UNIT/0.5 ML ML ONE (18:25)
--- NOTE | 2019-05-07 19:30 | ER ---
Nurse's Notes [facility] Name: Mat Black Age: 33 yrs Sex: Male : 1985 Arrival Date: 05/07/2019 Time: 14:51 Bed 17 Private MD: Diagnosis: Type 1 diabetes mellitus with hyperglycemia;Acute pancreatitis Presentation: 05/06 15:25 Chief complaint: Patient states: Upper abdominal pain since last night about an hour jl7 after dinner, reports nausea and diarrhea. Coronavirus screen: The patient has NOT traveled to a country currently being monitored by the [facility] within the last 14 days. Proceed with normal triage procedures. Ebola Screen: No symptoms or risks identified at this time. Initial Sepsis Screen: Does the patient meet any 2 criteria? No. Patient's initial sepsis screen is negative. Does the patient have a suspected source of infection? No. Patient's initial sepsis screen is negative. Risk Assessment: Do you want to hurt yourself or someone else? Patient reports no desire to harm self or others. Onset of symptoms was May 06, 2019 at 22:00. 15:25 Method Of Arrival: Ambulatory 7 15:25 Acuity: LILA 3 jl7 Triage Assessment: 15:29 General: Appears in no apparent distress. uncomfortable, ill, Behavior is cooperative, jl7 agitated. Pain: Complains of pain in epigastric area, right upper quadrant and left upper quadrant Pain currently is 7 out of 10 on a pain scale. GI: Stools are reported to be diarrhea. Last BM at 14:30. Historical: - Allergies: 15:29 No Known Allergies; jl7 - Home Meds: 15:29 Metformin Oral [Active]; atorvastatin oral oral [Active]; Tresiba FlexTouch U-100 jl7 subcutaneous subcutaneous [Active]; Novolog Sub-Q [Active]; carvedilol Oral [Active]; losartan Oral [Active]; - PMHx: 15:29 Diabetes - IDDM; Hyperlipidemia; Hypertension; jl7 - PSHx: 15:29 Hernia repair; jl7 - Immunization history:: Adult Immunizations up to date. - Social history:: Smoking status: Patient reports use of chewing tobacco. Screenin:35 Abuse screen: Denies threats or abuse. Nutritional screening: No deficits noted. rb1 Tuberculosis screening: No symptoms or risk factors identified. Fall Risk None identified. Assessment: 15:35 General: Appears in no apparent distress. comfortable, Behavior is calm, cooperative, rb1 Denies fever. General: Pt. reports not taking his diabetic medication for a while.. Pain: Complains of pain in epigastric area Pain currently is 10 out of 10 on a pain scale. Pain began last night after dinner. Neuro: Level of Consciousness is awake, alert, obeys commands, Oriented to person, place, time, situation. Cardiovascular: Capillary refill < 3 seconds is brisk in bilateral fingers. Respiratory: Airway is patent Respiratory effort is even, unlabored, Respiratory pattern is regular, symmetrical. GI: Bowel sounds present X 4 quads. Abdomen is tender to palpation in epigastric area Reports diarrhea, nausea. : No signs and/or symptoms were reported regarding the genitourinary system. Derm: Skin is pink, warm \T\ dry. 16:35 Reassessment: Patient appears in no apparent distress at this time. Patient and/or rb1 family updated on plan of care and expected duration. Pain level reassessed. Patient is alert, oriented x 3, equal unlabored respirations, skin warm/dry/pink. 17:30 Reassessment: Patient appears in no apparent distress at this time. Pt. is watching TV. rb1 18:30 Reassessment: Patient appears in no apparent distress at this time. Patient and/or rb1 family updated on plan of care and expected duration. Pain level reassessed. Patient is alert, oriented x 3, equal unlabored respirations, skin warm/dry/pink. Pt. reports that he needs pain medication. Provider notified. Received verbal order for Fentanyl 25 mcg IVP x once. 100% verbal read back. 20:00 Reassessment: Patient appears in no apparent distress at this time. Patient and/or rv family updated on plan of care and expected duration. Pain level reassessed. Patient is alert, oriented x 3, equal unlabored respirations, skin warm/dry/pink. PATIENT UPDATED ON THE PLAN OF CARE. Vital Signs: 15:25 BP 162 / 113; Pulse 89; Resp 16 S; Temp 98.5(O); Pulse Ox 96% on R/A; Weight 122.47 kg jl7 (R); Height 5 ft. 11 in. (180.34 cm) (R); Pain 7/10; 16:00 BP 153 / 101; Pulse 85; Resp 19; Pulse Ox 97% on R/A; Pain 10/10; rb1 16:55 BP 152 / 103; Pulse 66; Resp 18; Temp 98.1(TE); Pulse Ox 100% on R/A; mh5 17:55 BP 149 / 98; Pulse 87; Resp 19; Pulse Ox 100% on R/A; Pain 7/10; rb1 18:49 BP 156 / 96; Pulse 76; Resp 18; Temp 98.4(O); Pulse Ox 100% ; mh5 20:00 BP 130 / 82; Pulse 89; Resp 18; Pulse Ox 98% ; rv 21:00 BP 151 / 97; Pulse 99; Resp 17; Pulse Ox 100% on R/A; rv 21:45 BP 146 / 91; Pulse 88; Resp 17; Temp 98; Pulse Ox 99% on R/A; rv 15:25 Body Mass Index 37.66 (122.47 kg, 180.34 cm) jl7 ED Course: 14:51 Patient arrived in ED. ag5 15:23 Kaylen Austin FNP-C [facility] snw 15:23 Jesse Tafoya MD is Attending Physician. snw 15:27 Triage completed. jl7 15:29 Arm band placed on right wrist. jl7 15:35 Patient has correct armband on for positive identification. Bed in low position. Call rb1 light in reach. Side rails up X 1. Pulse ox on. NIBP on. Warm blanket given. Pillow given. 15:41 Karlene Millan, RN is Primary Nurse. rb1 15:55 Inserted saline lock: 22 gauge in right antecubital area, using aseptic technique. rb1 Blood collected. 19:29 Charmaine Bolanos MD is Hospitalizing Provider. snw 21:57 No provider procedures requiring assistance completed. IV is patent, with fluids rv infusing freely, with good blood return, Patient admitted, IV remains in place. Administered Medications: 15:57 Drug: NS 0.9% 1000 ml Route: IV; Rate: 125 ml/hr; Site: right antecubital; rb1 21:56 Follow up: IV Status: Infusion continued upon admission rv 15:58 Drug: Phenergan 6.25 mg Route: IVP; Site: right antecubital; rb1 21:56 Follow up: Response: No adverse reaction; Marked relief of symptoms rv 15:58 Drug: fentaNYL (PF) 25 mcg Route: IVP; Site: right antecubital; rb1 16:12 Follow up: Response: No adverse reaction; Pain is decreased rb1 16:05 Drug: NS 0.9% 1000 ml Route: IV; Rate: 1000 ml; Site: right antecubital; rb1 21:55 Follow up: IV Status: Completed infusion rv 21:56 Follow up: IV Intake: 1000ml rv 16:11 Not Given (Duplicate Order): NS 0.9% 1000 ml IV at 1 bolus Per protocol; 1000 mL bolus rb1 16:55 Drug: fentaNYL (PF) 25 mcg Route: IVP; Site: right antecubital; rb1 17:10 Follow up: Response: No adverse reaction; Pain is decreased rb1 18:26 Drug: Albuterol 2.5 mg Route: Inhalation; rb1 18:26 Drug: Insulin Regular Human 5 units {Co-Signature: mg2 (Mariusz Rascon RN).} Route: rb1 IVP; Site: right antecubital; 21:55 Follow up: Response: No adverse reaction rv 18:54 Drug: Albuterol 2.5 mg Route: Inhalation; rb1 19:01 Drug: fentaNYL (PF) 25 mcg Route: IVP; Site: right antecubital; rb1 21:54 Follow up: Response: No adverse reaction; Marked relief of symptoms; Pain is decreased; rv RASS: Alert and Calm (0) 19:14 Drug: Albuterol 2.5 mg Route: Inhalation; rb1 21:55 Follow up: Response: Marked relief of symptoms rv Intake: 21:56 IV: 1000ml; Total: 1000ml. rv Outcome: 19:30 Decision to Hospitalize by Provider. snw 21:58 Admitted to ER Hold. Please see [facility] for further documentation. rv 21:58 Condition: good 21:58 Discharge instructions given to patient, Instructed on the need for admit, Demonstrated understanding of instructions. 05/07 14:12 Patient left the ED. eb Signatures: Kaylen Austin, DOUGH MIXING MACHINE OPERATOR-C DOUGH MIXING MACHINE OPERATOR-Csnw Karlene Millan, RN RN rb1 Keely Kerr Cher Zhang RN RN 7 Jerrica Duarte eb Yves Helton RN RN rv Epifanio Jarrell ag5 Mariusz Gardose RN mg2
--- NOTE | 2019-05-07 19:30 | EDPHYS ---
Physician Documentation [facility] Name: Mat Black Age: 33 yrs Sex: Male : 1985 Arrival Date: 05/07/2019 Time: 14:51 Bed 17 Private MD: ED Physician Jesse Tafoya HPI: 05/06 16:37 This 33 yrs old Male presents to ER via Ambulatory with complaints of snw Abdominal Pain. 16:37 The patient presents with abdominal pain in the epigastric area, in the upper abdomen. snw Onset: The symptoms/episode began/occurred acutely. The symptoms do not radiate. Associated signs and symptoms: Pertinent positives: nausea and vomiting. The symptoms are described as crampy. Severity of pain: At its worst the pain was moderate. It is unknown whether or not the patient has had similar symptoms in the past. The patient has not recently seen a physician. Historical: - Allergies: 15:29 No Known Allergies; jl7 - Home Meds: 15:29 Metformin Oral [Active]; atorvastatin oral oral [Active]; Tresiba FlexTouch U-100 jl7 subcutaneous subcutaneous [Active]; Novolog Sub-Q [Active]; carvedilol Oral [Active]; losartan Oral [Active]; - PMHx: 15:29 Diabetes - IDDM; Hyperlipidemia; Hypertension; jl7 - PSHx: 15:29 Hernia repair; jl7 - Immunization history:: Adult Immunizations up to date. - Social history:: Smoking status: Patient reports use of chewing tobacco. ROS: 16:37 Constitutional: Negative for fever, chills, and weight loss, Eyes: Negative for injury, snw pain, redness, and discharge, ENT: Negative for injury, pain, and discharge, Neck: Negative for injury, pain, and swelling, Cardiovascular: Negative for chest pain, palpitations, and edema, Respiratory: Negative for shortness of breath, cough, wheezing, and pleuritic chest pain, Back: Negative for injury and pain, : Negative for injury, bleeding, discharge, and swelling, MS/Extremity: Negative for injury and deformity, Skin: Negative for injury, rash, and discoloration, Neuro: Negative for headache, weakness, numbness, tingling, and seizure. 16:37 Abdomen/GI: Positive for abdominal pain, nausea and vomiting. Exam: 16:36 Constitutional: This is a well developed, well nourished patient who is awake, alert, snw and in no acute distress. Head/Face: Normocephalic, atraumatic. Eyes: Pupils equal round and reactive to light, extra-ocular motions intact. Lids and lashes normal. Conjunctiva and sclera are non-icteric and not injected. Cornea within normal limits. Periorbital areas with no swelling, redness, or edema. 16:36 Neck: Trachea midline, no thyromegaly or masses palpated, and no cervical lymphadenopathy. Supple, full range of motion without nuchal rigidity, or vertebral point tenderness. No Meningismus. Chest/axilla: Normal chest wall appearance and motion. Nontender with no deformity. No lesions are appreciated. Cardiovascular: Regular rate and rhythm with a normal S1 and S2. No gallops, murmurs, or rubs. Normal PMI, no JVD. No pulse deficits. Respiratory: Lungs have equal breath sounds bilaterally, clear to auscultation and percussion. No rales, rhonchi or wheezes noted. No increased work of breathing, no retractions or nasal flaring. Back: No spinal tenderness. No costovertebral tenderness. Full range of motion. MS/ Extremity: Pulses equal, no cyanosis. Neurovascular intact. Full, normal range of motion. Neuro: Awake and alert, GCS 15, oriented to person, place, time, and situation. Cranial nerves II-XII grossly intact. Motor strength 5/5 in all extremities. Sensory grossly intact. Cerebellar exam normal. Normal gait. Psych: Awake, alert, with orientation to person, place and time. Behavior, mood, and affect are within normal limits. 16:36 ENT: TM's: are normal, Mouth: Oral mucosa: dry. 16:36 Abdomen/GI: Inspection: abdomen appears normal, Bowel sounds: normal, Palpation: mild abdominal tenderness, moderate abdominal tenderness, in the right upper quadrant and left upper quadrant. 16:36 Skin: Appearance: Color: simin, Temperature: warm, Moisture: dry. Vital Signs: 15:25 BP 162 / 113; Pulse 89; Resp 16 S; Temp 98.5(O); Pulse Ox 96% on R/A; Weight 122.47 kg jl7 (R); Height 5 ft. 11 in. (180.34 cm) (R); Pain 7/10; 16:00 BP 153 / 101; Pulse 85; Resp 19; Pulse Ox 97% on R/A; Pain 10/10; rb1 16:55 BP 152 / 103; Pulse 66; Resp 18; Temp 98.1(TE); Pulse Ox 100% on R/A; mh5 17:55 BP 149 / 98; Pulse 87; Resp 19; Pulse Ox 100% on R/A; Pain 7/10; rb1 18:49 BP 156 / 96; Pulse 76; Resp 18; Temp 98.4(O); Pulse Ox 100% ; mh5 20:00 BP 130 / 82; Pulse 89; Resp 18; Pulse Ox 98% ; rv 21:00 BP 151 / 97; Pulse 99; Resp 17; Pulse Ox 100% on R/A; rv 21:45 BP 146 / 91; Pulse 88; Resp 17; Temp 98; Pulse Ox 99% on R/A; rv 15:25 Body Mass Index 37.66 (122.47 kg, 180.34 cm) jl7 MDM: 15:38 Patient medically screened. snw 19:32 Data reviewed: vital signs, nurses notes. Data interpreted: Pulse oximetry: on room air snw is 100 %. Interpretation: normal. Counseling: I had a detailed discussion with the patient and/or guardian regarding: the historical points, exam findings, and any diagnostic results supporting the discharge/admit diagnosis, the presence of at least one elevated blood pressure reading (>120/80) during this emergency department visit, lab results, radiology results, the need for further work-up and treatment in the hospital. Physician consultation: Charmaine Bolanos MD was called at 18:57, was contacted at 19:32, regarding admission, attempted , Called Dr. Fermin x 2. 05/06 15:39 Order name: Basic Metabolic Panel; Complete Time: 18:20 snw 05/06 15:39 Order name: CBC with Diff snw 05/06 15:39 Order name: Creatinine for Radiology snw 05/06 15:39 Order name: Hepatic Function; Complete Time: 18:20 snw 05/06 15:39 Order name: Lipase; Complete Time: 18:20 snw 05/06 16:16 Order name: Glucose, Ancillary Testing; Complete Time: 16:21 EDMS 05/06 16:41 Order name: Creatinine (Radiology Only); Complete Time: 16:41 EDMS 05/06 16:51 Order name: CBC with Automated Diff; Complete Time: 16:53 EDMS 05/06 20:24 Order name: Glucose, Ancillary Testing; Complete Time: 20:27 EDMS 05/06 20:43 Order name: CBC with Automated Diff EDMS 05/06 20:44 Order name: CBC with Automated Diff EDMS 05/06 20:44 Order name: Comprehensive Metabolic Panel EDMS 05/06 20:44 Order name: Comprehensive Metabolic Panel EDMS 05/06 20:44 Order name: Protime (+INR) EDMS 05/06 15:39 Order name: US Abdomen Limited snw 05/06 19:06 Order name: US; Complete Time: 19:10 EDMS 05/06 20:44 Order name: Protime (+INR) EDMS 05/06 20:44 Order name: PTT, Activated Partial Thromb EDIA 05/06 20:44 Order name: PTT, Activated Partial Thromb EDIA 05/06 21:49 Order name: Urine Microscopic Only [facility] 05/06 21:49 Order name: Urine Dipstick--Ancillary (enter results) [facility] 05/06 22:16 Order name: Urine Microscopic Only; Complete Time: 22:17 [facility] 05/06 22:17 Order name: Urine Dipstick-Ancillary; Complete Time: 22:17 [facility] 05/07 04:57 Order name: Glucose, Ancillary Testing EDIA 05/07 07:26 Order name: Lipase EDIA 05/07 07:42 Order name: Lipid Profile [facility] 05/07 08:05 Order name: LDL, Direct EDIA 05/07 11:18 Order name: Glucose, Ancillary Testing [facility] 05/06 15:39 Order name: IV Saline Lock; Complete Time: 16:18 w 05/06 15:39 Order name: Labs collected and sent; Complete Time: 16:18 w 05/06 16:36 Order name: Labs - recollect needed: recollect a small green top; Complete Time: 16:56 bd 05/06 19:35 Order name: FSBS; Complete Time: 00:24 snw 05/06 20:42 Order name: CONS Pharmacy Consult EDIA 05/06 20:42 Order name: NPO EDMS Administered Medications: 15:57 Drug: NS 0.9% 1000 ml Route: IV; Rate: 125 ml/hr; Site: right antecubital; rb1 21:56 Follow up: IV Status: Infusion continued upon admission rv 15:58 Drug: Phenergan 6.25 mg Route: IVP; Site: right antecubital; rb1 21:56 Follow up: Response: No adverse reaction; Marked relief of symptoms rv 15:58 Drug: fentaNYL (PF) 25 mcg Route: IVP; Site: right antecubital; rb1 16:12 Follow up: Response: No adverse reaction; Pain is decreased rb1 16:05 Drug: NS 0.9% 1000 ml Route: IV; Rate: 1000 ml; Site: right antecubital; rb1 21:55 Follow up: IV Status: Completed infusion rv 21:56 Follow up: IV Intake: 1000ml rv 16:11 Not Given (Duplicate Order): NS 0.9% 1000 ml IV at 1 bolus Per protocol; 1000 mL bolus rb1 16:55 Drug: fentaNYL (PF) 25 mcg Route: IVP; Site: right antecubital; rb1 17:10 Follow up: Response: No adverse reaction; Pain is decreased rb1 18:26 Drug: Albuterol 2.5 mg Route: Inhalation; rb1 18:26 Drug: Insulin Regular Human 5 units {Co-Signature: mg2 (Mariusz Rascon RN).} Route: rb1 IVP; Site: right antecubital; 21:55 Follow up: Response: No adverse reaction rv 18:54 Drug: Albuterol 2.5 mg Route: Inhalation; rb1 19:01 Drug: fentaNYL (PF) 25 mcg Route: IVP; Site: right antecubital; rb1 21:54 Follow up: Response: No adverse reaction; Marked relief of symptoms; Pain is decreased; rv RASS: Alert and Calm (0) 19:14 Drug: Albuterol 2.5 mg Route: Inhalation; rb1 21:55 Follow up: Response: Marked relief of symptoms rv Disposition: 05/07 18:01 Co-signature as Attending Physician, Jesse Tafoya MD I agree with the assessment and kdr plan of care. Disposition: 05/07/19 19:30 Hospitalization ordered by Charmaine Bolanos for Inpatient Admission. Preliminary diagnosis are Type 1 diabetes mellitus with hyperglycemia, Acute pancreatitis. - Bed requested for Telemetry/MedSurg (Inpatient). - Status is Inpatient Admission. eb - Condition is Stable. - Problem is new. - Symptoms are unchanged. Signatures: Dispatcher [employer] EDMS Chana Casanova Diana, RN RN Jesse Tafoya MD MD [facility] Kaylen Austin, FUNDING SPECIALIST-C FUNDING SPECIALIST-Csnw Karlene Millan, RN RN rb1 Cher Whalen, RN RN jl7 Jerrica Duarte Ronaldo RN rv Mariusz Rascon RN mg2 Corrections: (The following items were deleted from the chart) 05/06 20:41 19:30 Hospitalization Ordered by Charmaine Bolanos MD for Inpatient Admission. Preliminary dw diagnosis is Type 1 diabetes mellitus with hyperglycemia; Acute pancreatitis. Bed requested for Telemetry/MedSurg (Inpatient). Status is Inpatient Admission. Condition is Stable. Problem is new. Symptoms are unchanged. snw 05/07 13:51 05/06 20:41 05/07/2019 19:30 Hospitalization Ordered by Charmaine Bolanos MD for Inpatient dw Admission. Preliminary diagnosis is Type 1 diabetes mellitus with hyperglycemia; Acute pancreatitis. Bed requested for [facility] ER HOLD. Status is Inpatient Admission. Condition is Stable. Problem is new. Symptoms are unchanged. dw 05/07 14:12 13:51 05/07/2019 19:30 Hospitalization Ordered by Charmaine Bolanos MD for Inpatient eb Admission. Preliminary diagnosis is Type 1 diabetes mellitus with hyperglycemia; Acute pancreatitis. Bed requested for Telemetry/MedSurg (Inpatient). Status is Inpatient Admission. Condition is Stable. Problem is new. Symptoms are unchanged. dw
[2019-05-07] MEDS ORDERED: ACETAMINOPHEN 500 MG TAB PO PRN (20:37)
[2019-05-07] MEDS: gemfibroziL 600 MG TAB PO SCH (21:00)
[2019-05-07] MEDS: carvediloL 12.5 MG TAB PO SCH (21:00)
[2019-05-07] MEDS: METFORMIN ER 500 MG TAB PO SCH (21:00)
[2019-05-07] MEDS: ATORVASTATIN 80 MG TAB PO SCH (21:00)
[2019-05-07] MEDS ORDERED: NA CHLORIDE 0.9% 1,000 ML IV SCH (21:00)
[2019-05-07] MEDS: INSULIN GLARGINE 100 UNITS/ML SQ SCH (21:00)
[2019-05-07] MEDS ORDERED: ONDANSETRON 4 MG/2 ML VIAL ONE (21:41)
[2019-05-07] MEDS ORDERED: MORPHINE 4 MG/ML SYR ONE (21:41)
[2019-05-07] MEDS: ONDANSETRON 4 MG/2 ML VIAL IV PRN (22:00)
[2019-05-07] MEDS: MORPHINE 4 MG/ML SYR IV PRN (22:00)
[2019-05-07 22:15] LABS: Urine Bacteria NONE SEEN /HPF (NONE SEEN); Urine RBC <5 /HPF (NONE SEEN)
[2019-05-07 22:16] LABS: Urine Culture Reflex Order NOT NEEDED
[2019-05-07 22:16] LABS: Urine Blood TRACE (NEG); Urine Glucose 2+ (NEG); Urine Protein 3+ (NEG)
[2019-05-07] MEDS ORDERED: INSULIN GLARGINE 100 UNITS/ML SQ ONE ×2 (23:00→23:27)
[2019-05-07] MEDS ORDERED: METFORMIN HCL 500 MG TAB ONE (23:24)
[2019-05-07] MEDS ORDERED: carvediloL 12.5 MG TAB ONE (23:25)
[2019-05-07] MEDS ORDERED: ATORVASTATIN 80 MG TAB ONE (23:25)
[2019-05-08] MEDS ORDERED: NA CHLORIDE 0.9% 1,000 ML ONE ×2 (00:22→10:14)
[2019-05-08] MEDS ORDERED: ONDANSETRON 4 MG/2 ML VIAL ONE ×3 (01:44→10:06)
[2019-05-08] MEDS ORDERED: MORPHINE 4 MG/ML SYR ONE ×3 (01:44→10:06)
[2019-05-08] MEDS: ONDANSETRON 4 MG/2 ML VIAL IV PRN ×5 (01:45→22:31)
[2019-05-08] MEDS: MORPHINE 4 MG/ML SYR IV PRN ×6 (01:45→22:32)
[2019-05-08 05:02] LABS: Absolute Lymphocytes (CBC) 1.5 K/uL (0.7-4.9); Basophils % 1.2 % (0-1.3); Hematocrit 41.5 % (39.6-49.0); Lymphocytes % 13.6 % (15.3-44.8); MPV 9.2 fL (7.6-11.3)
[2019-05-08 05:06] LABS: Protime INR 1.04
[2019-05-08 05:49] VITALS: BMI 37.6
[2019-05-08 06:39] LABS: ALT/SGPT 60 U/L (12-78); Albumin 3.1 g/dL (3.4-5.0); Alkaline Phosphatase 69 U/L (45-117); BUN Blood Urea Nitrogen 8 mg/dL (7-18); Bicarbonate 22 mmol/L (21-32); Bilirubin Total 0.6 mg/dL (0.2-1.0); Glucose Level 264 mg/dL (74-106); Protein, Total 6.5 g/dL (6.4-8.2); Sodium Level 137 mmol/L (136-145)
[2019-05-08 06:40] LABS: Potassium 4.7 mmol/L (3.5-5.1)
[2019-05-08 06:41] LABS: AST/SGOT 31 U/L (15-37)
[2019-05-08] MEDS: NA CHLORIDE 0.9% 1,000 ML IV SCH ×3 (06:58→20:55)
--- NOTE | 2019-05-08 07:04 | P.HP ---
Certification for Inpatient Patient admitted to: Observation With expected LOS: <2 Midnights Patient will require the following post-hospital care: None Practitioner: I am a practitioner with admitting privileges, knowledge of patient current condition, hospital course, and medical plan of care. Services: Services provided to patient in accordance with Admission requirements found in Title 42 Section 412.3 of the Code of Federal Regulations Patient History Date of Service: 05/07/19 Reason for admission: Acute pancreatitis/hyperosmolar nonketotic syndrome History of Present Illness: Patient is a 33-year-old gentleman who came to the hospital with abdominal pain and hyperglycemia. Patient also has a history of hypertriglyceridemia. Patient takes gemfibrozil. Patient was admitted because patient was having epigastric tenderness and patient workup revealed elevated lipase levels. Patient will be admitted to the hospital for acute pancreatitis. Will go ahead a recheck triglyceride levels and repeat lipase in the morning. Patient will get started on ice chips this morning. If he tolerates and labs are looking better than we may advanced diet as tolerated. Allergies No Known Allergies Allergy (Unverified 03/25/18 05:39) Home Medications: Insulin Glargine,Hum.rec.anlog [Lantus Solostar] 75 units SQ BID 03/25/18 Insulin Lispro [Humalog] 25 unit SQ TIDWM 03/25/18 Losartan Potassium 25 mg PO DAILY 03/25/18 Metformin ER [Glucophage ER*] 1,000 mg PO BID 03/25/18 carvediloL [Carvedilol] 12.5 mg PO BID 03/25/18 Atorvastatin Calcium [Lipitor] 80 mg PO BEDTIME #30 tab 03/26/18 Clopidogrel Bisulfate [Plavix*] 75 mg PO DAILY #30 tablet 03/26/18 gemfibroziL [Lopid*] 600 mg PO BID #60 tab 03/26/18 - Past Medical/Surgical History Diabetic: Yes -: Type 2 diabetes -: Morbid obesity -: hypertriglyceridemia -: Acute pancreatitis -: Left ankle Sx and Right Knee - Family History Father Medical History: Heart disease - Social History Smoking Status: Never smoker Alcohol use: Yes CD- Drugs: No Place of Residence: Home Review of Systems 10-point ROS is otherwise unremarkable Physical Examination - Vital Signs Temperature: 98 F Blood Pressure: 131/81 Pulse: 75 Respirations: 16 Pulse Ox (%): 96 - Physical Exam General: Alert, In no apparent distress, Oriented x3 HEENT: Atraumatic, PERRLA, Mucous membr. moist/pink, EOMI, Sclerae nonicteric Neck: Supple, 2+ carotid pulse no bruit, No LAD, Without JVD or thyroid abnormality Respiratory: Clear to auscultation bilaterally, Normal air movement Cardiovascular: Regular rate/rhythm, Normal S1 S2, No murmurs Gastrointestinal: Normal bowel sounds, Soft and benign, Non-distended, No rebound, No guarding, Tenderness Musculoskeletal: No clubbing, No swelling, No tenderness Integumentary: No rashes Neurological: Normal gait, Normal speech, Normal strength at 5/5 x4 extr, Normal tone, Normal affect Lymphatics: No axilla or inguinal lymphadenopathy - Studies Laboratory Data (last 24 hrs) 05/07/19 16:48: Sodium 135 L, Potassium 5.3 H, BUN 9, Creatinine 1.08, Glucose 392 H, Total Bilirubin 0.6, AST 88 H, ALT 62, Alkaline Phosphatase 92, Lipase 1186 H 05/07/19 15:55: Creatinine 1.08 05/07/19 15:55: WBC 10.6, Hgb 15.2, Hct 46.3, Plt Count 199 Assessment & Plan - Problems (Diagnosis) (1) Acute pancreatitis Current Visit: Yes Status: Acute (2) Hypertriglyceridemia Onset Date: 03/26/18 Current Visit: No Status: Acute (3) Type 2 diabetes mellitus Onset Date: 03/26/18 Current Visit: No Status: Acute - Plan Plan: 1. Aggressive IV hydration 2. Pain control 3. Monitor lipase and triglyceride 4. If symptoms do not improve then will go ahead and do CT 5. Continue gemfibrozil along with fish oil capsule 6. GI and DVT prophylaxis Discharge Plan: Home Plan to discharge in: 48 Hours - Advance Directives Does patient have a Living Will: No Does patient have a Durable POA for Healthcare: No - Code Status/Comfort Care Code Status Assessed: Yes Code Status: Full Code Critical Care: No Time Spent Managing PTS Care (In Minutes): 45
[2019-05-08 07:26] LABS: Lipase 3809 U/L (73-393)
[2019-05-08 07:33] LABS: HDL Cholesterol 31 mg/dL (40-60); LDL Cholesterol, Calculated ND (<130)
[2019-05-08 07:54] LABS: LDL, Direct 102 mg/dL (100-129)
[2019-05-08] MEDS ORDERED: INSULIN LISPRO 25 UNIT SQ SCH (08:00)
[2019-05-08] MEDS: METFORMIN ER 500 MG TAB PO SCH ×2 (09:00→20:46)
[2019-05-08] MEDS: CLOPIDOGREL 75 MG TABLET PO SCH (09:00)
[2019-05-08] MEDS: carvediloL 12.5 MG TAB PO SCH ×2 (10:21→20:47)
[2019-05-08] MEDS: LOSARTAN POTASSIUM 50 MG TABLET PO SCH (10:23)
[2019-05-08] MEDS: INSULIN GLARGINE 100 UNITS/ML SQ SCH ×2 (10:24→20:48)
[2019-05-08] MEDS ORDERED: GLUCAGON 1 MG/VIAL IM PRN (10:29)
[2019-05-08] MEDS ORDERED: D50W 25 GM/50 ML SYRINGE/VIAL IV PRN (10:29)
[2019-05-08] MEDS: gemfibroziL 600 MG TAB PO SCH ×2 (10:38→20:47)
[2019-05-08] MEDS: INSULIN -REGULAR HUMAN 50 UNIT/0.5 ML ML SQ SCH ×2 (11:29→18:24)
[2019-05-08] MEDS ORDERED: INSULIN -REGULAR HUMAN 50 UNIT/0.5 ML ML ONE (11:32)
--- NOTE | 2019-05-08 12:44 | P.PN ---
Subjective Date of Service: 05/08/19 Chief Complaint: Acute pancreatitis/hyperosmolar nonketotic syndrome Patient still with epigastric pain, improves with medication Physical Examination - Vital Signs Temperature: 98.2 F Blood Pressure: 127/80 Pulse: 84 Respirations: 18 Pulse Ox (%): 95 - Physical Exam General: Alert, In no apparent distress HEENT: Atraumatic, PERRLA, EOMI Neck: Supple, JVD not distended Respiratory: Clear to auscultation bilaterally, Normal air movement Cardiovascular: Regular rate/rhythm, Normal S1 S2 Gastrointestinal: Normal bowel sounds, Tenderness Musculoskeletal: No tenderness Integumentary: No rashes Neurological: Normal speech, Normal tone, Normal affect Lymphatics: No axilla or inguinal lymphadenopathy - Studies Laboratory Data (last 24 hrs) 05/08/19 05:20: Triglycerides 1886 H, Cholesterol 284 H, LDL Cholesterol Direct 102, HDL Cholesterol 31 L, Cholesterol/HDL Ratio 9.16, Lipase Cancelled 05/08/19 05:20: Sodium 137, Potassium 4.7, BUN 8, Creatinine 0.94, Glucose 264 H , Total Bilirubin 0.6, AST 31, ALT 60, Alkaline Phosphatase 69, Lipase 3809 H 05/08/19 04:45: PT 12.3, INR 1.04, APTT 32.0 05/08/19 04:45: WBC 11.2 H, Hgb 14.6, Hct 41.5, Plt Count 166 05/07/19 16:48: Sodium 135 L, Potassium 5.3 H, BUN 9, Creatinine 1.08, Glucose 392 H, Total Bilirubin 0.6, AST 88 H, ALT 62, Alkaline Phosphatase 92, Lipase 1186 H 05/07/19 15:55: Creatinine 1.08 05/07/19 15:55: WBC 10.6, Hgb 15.2, Hct 46.3, Plt Count 199 Assessment & Plan Physician Review: Patient Assessed, Agree with Above Assessment and Plan Physician Review Additional Text: Mr. Black is 33-year-old with acute pancreatitis. # Acute pancreatitis- secondary to hypertriglyceridemia. RUQ are ultrasound is unremarkable. Patient denies alcohol use. - IV hydration. Lipase is increasing. -CT abdomen. - continue npo and pain medicine. #Hypertriglyceridemia- continue oral meds, if no improvement. -will consider IV insulin -monitor closely #DM- BG Q6hr and continue with ISS. GI and DVT prophylaxis Discharge Plan: Home Plan to discharge in: 48 Hours
[2019-05-08] MEDS: ATORVASTATIN 80 MG TAB PO SCH (20:46)
[2019-05-08] MEDS ORDERED: INSULIN GLARGINE 100 UNITS/ML SQ ONE (23:00)
[2019-05-09] MEDS: INSULIN -REGULAR HUMAN 50 UNIT/0.5 ML ML SQ SCH ×5 (00:54→21:00)
[2019-05-09] MEDS: NA CHLORIDE 0.9% 1,000 ML IV SCH ×4 (02:40→23:42)
[2019-05-09] MEDS: MORPHINE 4 MG/ML SYR IV PRN ×3 (02:42→11:03)
[2019-05-09] MEDS: ONDANSETRON 4 MG/2 ML VIAL IV PRN ×3 (02:42→11:03)
[2019-05-09] MEDS: LOSARTAN POTASSIUM 50 MG TABLET PO SCH (08:17)
[2019-05-09] MEDS: METFORMIN ER 500 MG TAB PO SCH ×2 (08:17→21:11)
[2019-05-09] MEDS: carvediloL 12.5 MG TAB PO SCH ×2 (08:17→21:11)
[2019-05-09] MEDS: gemfibroziL 600 MG TAB PO SCH ×2 (08:18→21:11)
[2019-05-09] MEDS: INSULIN GLARGINE 100 UNITS/ML SQ SCH ×2 (08:18→21:12)
[2019-05-09] MEDS: CLOPIDOGREL 75 MG TABLET PO SCH (08:18)
[2019-05-09 10:05] LABS: Absolute Lymphocytes (CBC) 1.4 K/uL (0.7-4.9); Basophils % 0.7 % (0-1.3); Lymphocytes % 17.4 % (15.3-44.8); RBC Red Blood Cell Count 4.81 M/uL (4.33-5.43)
[2019-05-09 10:22] LABS: ALT/SGPT 44 U/L (12-78); AST/SGOT 14 U/L (15-37); Albumin 2.6 g/dL (3.4-5.0); Alkaline Phosphatase 61 U/L (45-117); Amylase Level 116 U/L (25-115); BUN Blood Urea Nitrogen 9 mg/dL (7-18); Bicarbonate 26 mmol/L (21-32); Bilirubin Total 0.5 mg/dL (0.2-1.0); Glucose Level 136 mg/dL (74-106); Lipase 1110 U/L (73-393); Potassium 3.8 mmol/L (3.5-5.1); Protein, Total 6.2 g/dL (6.4-8.2); Sodium Level 138 mmol/L (136-145)
[2019-05-09] MEDS ORDERED: MORPHINE 2 MG/ML SYR IV PRN (14:01)
[2019-05-09] MEDS ORDERED: HYDRALAZINE HCL 20 MG/ML VIAL IV PRN (14:14)
--- NOTE | 2019-05-09 19:08 | PN ---
Subjective: Currently, patient lying in bed. He looks comfortable, but he is saying he continued to have abdominal pain. He thinks his pain is much better compared to when he was admitted, though he continued to ask the nurse to give him his pain medication as frequently as possible. He denies any nausea or vomiting. He would like to try a clear liquid. Review of Systems: Otherwise as below. He denies any nausea or vomiting. Objective: Vital Signs: Blood pressure 131/90, respiratory rate 16, pulse 81, temperature 97.2, he is saturating normal 95% on room air. General: He is alert and oriented x3. Does not look in any distress. HEENT: Atraumatic, normocephalic. PERRLA. Oral mucosa is moist. Neck: Supple. No JVD. No carotid bruits. Chest: Clear to auscultation. Good air entry. Heart: Regular rate and rhythm. S1, S2 normal. No gallop or murmur. Abdomen: Soft. Mild tenderness in the epigastric area. There is some guarding. There is no reboun d. Positive bowel sounds. Extremities: No clubbing, cyanosis, or edema. No calf tenderness. Neurologic: Grossly intact. Laboratory Data: Today showed CBC was normal except for mild anemia and hemoglobin 13.3, platelets o f 136. Chemistry was normal except for GFR of 136, calcium 8.1, protein 6.2, albumin of 2.6, amylase of 116, lipase of 1110. Assessment And Plan: A -[id number]-[id number] gentleman with history of abdominal pain, found to have a cute pancreatitis secondary to hypertriglyceridemia. 1.Acute pancreatitis. Since patient's pain is subjectively better, though he is still asking for fr equent p.r.n. pain medication, I will advance his diet to clear liquid. His lipase dropped from 3200 to 1100 this morning. Continue IV hydration. We will not proceed with CT abdomen as patient's lipa se is trending down. 2.Hypertriglyceridemia. Patient will need strict diet as well as oral medication to get that under control. He is on atorvastatin 80 mg daily. I will add gemfibrozil 600 mg twice a day wh ich can be done by primary care physician. 3.Diabetes mellitus, well controlled relatively. I will check his hemoglobin A1c while he is inpati ent. 4.Deep vein thrombosis prophylaxis. Patient ambulating. 5.Hypertension. Needs better control still. Patient on multiple medications with Coreg. We will a sid pneelam hydralazine. ISAI/KHOI Voice ID: [id number] Report ID: [id number]
[2019-05-09] MEDS: ATORVASTATIN 80 MG TAB PO SCH (21:11)
[2019-05-10] MEDS: NA CHLORIDE 0.9% 1,000 ML IV SCH (05:41)
[2019-05-10 06:56] LABS: Absolute Lymphocytes (CBC) 1.4 K/uL (0.7-4.9); Basophils % 0.7 % (0-1.3); Hematocrit 39.6 % (39.6-49.0); Lymphocytes % 17.9 % (15.3-44.8); MPV 8.9 fL (7.6-11.3); RBC Red Blood Cell Count 4.76 M/uL (4.33-5.43)
[2019-05-10 07:17] LABS: ALT/SGPT 45 U/L (12-78); AST/SGOT 23 U/L (15-37); Albumin 2.6 g/dL (3.4-5.0); Alkaline Phosphatase 61 U/L (45-117); Amylase Level 54 U/L (25-115); BUN Blood Urea Nitrogen 8 mg/dL (7-18); Bicarbonate 24 mmol/L (21-32); Bilirubin Total 0.4 mg/dL (0.2-1.0); Glucose Level 181 mg/dL (74-106); Potassium 3.7 mmol/L (3.5-5.1); Protein, Total 6.4 g/dL (6.4-8.2); Sodium Level 138 mmol/L (136-145)
[2019-05-10 08:04] LABS: Lipase 625 U/L (73-393)
[2019-05-10] MEDS: LOSARTAN POTASSIUM 50 MG TABLET PO SCH (08:34)
[2019-05-10] MEDS: INSULIN -REGULAR HUMAN 50 UNIT/0.5 ML ML SQ SCH (08:34)
[2019-05-10] MEDS: METFORMIN ER 500 MG TAB PO SCH (08:34)
[2019-05-10] MEDS: INSULIN GLARGINE 100 UNITS/ML SQ SCH (08:34)
[2019-05-10] MEDS: CLOPIDOGREL 75 MG TABLET PO SCH (08:35)
[2019-05-10] MEDS: gemfibroziL 600 MG TAB PO SCH (08:35)
[2019-05-10] MEDS: carvediloL 12.5 MG TAB PO SCH (08:35)
[2019-05-10 08:38] VITALS: BP 138/82
[2019-05-10 08:51] VITALS: TEMP 97.5
[2019-05-10 11:25] VITALS: O2SAT 98
--- NOTE | 2019-05-11 00:11 | DS ---
Date of Discharge: 05/10/2019 Discharge Diagnoses: 1.Acute pancreatitis. 2.Overweight. 3.Hypertriglyceridemia. 4.Diabetes mellitus. 5.Hypertension. Consult: None. Procedure: Abdominal ultrasound, which showed normal gallbladder, biliary tree. History Of Present Illness: Please refer to admission note. Hospital Course: Initially, the patient presented to the hospital on May 06 with abdominal pain, p rogressive hyperglycemia and workup consistent with acute pancreatitis with lipase very high. Gunner jackson was kept n.p.o., on fluid and his lipase was greater than 3000 and it started to go down 3625. Liudmila funes tolerated clear liquids since yesterday. He will advance his diet to full liquid. The patient insisted to leave today as his grandmother being admitted to the hospital. He will be discharged in stable condition. Advised to continue a soft mechanical diet, low fat for the next week. Advised to follow up with primary care physician. Check his lipase as outpatient. Advised to see the dietitia n about his hypertriglyceridemia. Advised light exercise. Discussed with primary care physician to adjust his hypertriglyceridemia medicine as well as better control of his blood pressure and diabetes . He will be discharged today in stable condition. Discharge Diet: 1800 ADA cardiac. Discharge Activity: As tolerated. Discharge Condition: Stable. Discharge Medications: Zofran 8 mg every 8 hours as needed for nausea, Lipitor 80 mg once a day, Tara vix 75 mg daily, glargine insulin 75 units twice a day, insulin lispro 25 units t.i.d. with meals, lo sartan 25 mg daily, metformin 1000 mg twice a day, Coreg 12.5 mg twice a day, gemfibrozil 600 mg twic e a day. Discharge Physical Examination: Vital Signs: Blood pressure is 138/82, respiratory rate 17, pulse 8 0, temperature 97.5. General: Patient is alert and oriented x3. Does not look in any distress. HEENT: Atraumatic, normocephalic. PERRLA, EOMI. Oral mucosa is moist. Neck: Supple. No JVD. No bruits. Chest: Clear to auscultation. Good air entry. Heart: Regular rate and rhythm. S1, S2 normal. No gallop or murmur. Abdomen: Soft, nontender. No masses. No hepatosplenomegaly. Positive bowel sounds. Extremities: No clubbing, cyanosis or edema. No calf tenderness. Neurologic: Grossly intact. MT/MODL Voice ID: [id number] Report ID: [id number]
== END 2019-05-10 11:29 | disposition home or self-care (01) | DRG 440 ==
LOC: ER 14:48 → ERHOLD 20:44 → OBSVTOIN 05-08 09:50 → 2ND 05-08 14:06
PROVIDERS: ADMIT Hospitalist; ATTEND Hospitalist
DX: K85.90 Acute pancreatitis without necrosis or infection, unspecified (principal); E66.3 Overweight; Z68.37 Body mass index [BMI] 37.0-37.9, adult; E78.1 Pure hyperglyceridemia; E11.9 Type 2 diabetes mellitus without complications; I10 Essential (primary) hypertension
CPT/HCPCS: 36415; 76705; 80048; 80053; 80061; 80076; 81003; 81015; 82150; 82947; 83036; 83690; 85025; 85610; 85730; 96361; 96374; 96375; 99285; G0378; J1815; J2405; J2550; J3010; J7030

== ENCOUNTER 2020-02-16 14:11 | Observation (INO) | payer OTHER ==
[2020-02-16 14:36] LABS: Absolute Lymphocytes (CBC) 2.5 K/uL (0.7-4.9); Basophils % 1.1 % (0-1.3); Hematocrit 42.4 % (39.6-49.0); Lymphocytes % 29.8 % (15.3-44.8); MPV 9.8 fL (7.6-11.3); RBC Red Blood Cell Count 5.04 M/uL (4.33-5.43)
[2020-02-16 14:37] LABS: Protime INR 1.03
[2020-02-16] MEDS ORDERED: NITROGLYCERIN 1 GM PKT TD ONE (14:43)
[2020-02-16] MEDS ORDERED: ONDANSETRON 4 MG/2 ML VIAL ONE (14:44)
[2020-02-16] MEDS ORDERED: NA CHLORIDE 0.9% 1,000 ML ONE ×2 (14:44→17:19)
[2020-02-16 14:56] LABS: ALT/SGPT 40 U/L (12-78); Albumin 3.5 g/dL (3.4-5.0); Alkaline Phosphatase 77 U/L (45-117); BUN Blood Urea Nitrogen 17 mg/dL (7-18); Bicarbonate 28 mmol/L (21-32); Bilirubin Direct < 0.1 mg/dL (0-0.2); Bilirubin Total 0.2 mg/dL (0.2-1.0); Glucose Level 225 mg/dL (74-106); NT PRO-BNP 30 pg/mL (<125); Protein, Total 6.9 g/dL (6.4-8.2); Sodium Level 141 mmol/L (136-145); Troponin (Emerg Dept Use Only) < 0.02 ng/mL (0.0-0.045)
[2020-02-16] MEDS ORDERED: MORPHINE 4 MG/ML SYR ONE ×2 (15:02→15:16)
[2020-02-16 15:10] LABS: AST/SGOT 23 U/L (15-37); Magnesium 1.7 mg/dL (1.8-2.4); Potassium 3.9 mmol/L (3.5-5.1)
[2020-02-16] MEDS ORDERED: HYDROMORPHONE HCL 1 MG/ML INJ ONE ×2 (15:26→18:37)
--- NOTE | 2020-02-16 15:39 | RAD REPORT ---
EXAM DESCRIPTION: RAD - Chest Single View - 02/16/2020 3:30 pm CLINICAL HISTORY: CHEST PAIN COMPARISON: Portable February 2018 TECHNIQUE: AP portable chest image was obtained 02/16/2020 3:30 pm . FINDINGS: Lung volumes are low. No peripheral mass or consolidation. Heart and vasculature are bo l. No measurable pleural effusion and no pneumothorax. No acute bony abnormality seen. No acute aorti c findings suspected. IMPRESSION: No acute cardiopulmonary process. No significant change from comparison study.
[2020-02-16] MEDS ORDERED: LORazepam 2 MG/ML VIAL ONE (15:54)
--- NOTE | 2020-02-16 16:19 | EDPHYS ---
Physician Documentation [facility] Name: Mat Black Age: 34 yrs Sex: Male : 1985 Arrival Date: 02/16/2020 Time: 14:18 Bed 18 Private MD: ED Physician Jesse Tafoya HPI: 02/15 14:21 This 34 yrs old Male presents to ER via Unassigned with complaints of Chest cp Pain. 14:21 The patient or guardian reports chest pain that is located primarily in the substernal cp area. The pain radiates to the left arm. The chest pain is described as similar to previous cardiac pain. Duration: The patient or guardian reports a single episode, that is still ongoing. EMS care prior to arrival includes: aspirin, IV fluids, nitroglycerin, x 1, fentanyl 50 mcg. Historical: - Home Meds: 15:20 atorvastatin Oral [Active]; carvedilol Oral [Active]; losartan Oral [Active]; Metformin zb Oral [Active]; rosuvastatin 5 mg oral tab [Active]; - PMHx: 15:20 Diabetes - IDDM; Hyperlipidemia; Hypertension; zb - PSHx: 15:20 Hernia repair; Heart stents; zb - Immunization history:: Adult Immunizations up to date. - Social history:: Smoking status: Patient reports the use of cigarette tobacco products, denies chronic smoking, but will smoke occasionally, Patient reports use of chewing tobacco. ROS: 14:23 Cardiovascular: Positive for chest pain. cp 14:23 Constitutional: Negative for body aches, chills, fever, poor PO intake. cp 14:23 Eyes: Negative for injury, pain, redness, and discharge. cp 14:23 ENT: Negative for ear pain, sore throat, difficulty swallowing, difficulty handling secretions. 14:23 Respiratory: Negative for cough, shortness of breath, wheezing. 14:23 Abdomen/GI: Negative for abdominal pain, nausea, vomiting, and diarrhea, black/tarry stool, rectal bleeding. 14:23 Back: Negative for pain at rest, pain with movement, radiated pain. 14:23 Neuro: Negative for altered mental status, dizziness, headache, syncope, weakness. 14:23 All other systems are negative. Exam: 14:23 ECG was reviewed by the Attending Physician. cp 14:30 Constitutional: The patient appears in no acute distress, alert, awake, cp non-diaphoretic, non-toxic, well developed, well nourished. 14:30 Head/Face: Normocephalic, atraumatic. cp 14:30 Eyes: Periorbital structures: appear normal, Conjunctiva: normal, no exudate, no injection, Sclera: no appreciated abnormality, Lids and lashes: appear normal, bilaterally. 14:30 ENT: External ear(s): are unremarkable, Nose: is normal, Mouth: Lips: moist, Oral mucosa: pink and intact, moist, Posterior pharynx: is normal, airway is patent. 14:30 Chest/axilla: Inspection: normal, Palpation: is normal, no crepitus, no tenderness. 14:30 Cardiovascular: Rate: normal, Rhythm: regular, Edema: is not appreciated, JVD: is not appreciated. 14:30 Respiratory: the patient does not display signs of respiratory distress, Respirations: cp normal, no use of accessory muscles, no retractions, labored breathing, is not present, Breath sounds: are clear throughout, no decreased breath sounds, no stridor, no wheezing. 14:30 Abdomen/GI: Inspection: abdomen appears normal, Palpation: abdomen is soft and cp non-tender, in all quadrants. 14:30 Back: pain, is absent, ROM is normal. 14:30 Skin: no rash present. 14:30 Neuro: Orientation: to person, place \T\ time. Mentation: is normal, Cerebellar function: is grossly normal, Motor: moves all fours, strength is normal, Sensation: is normal. Vital Signs: 15:26 BP 158 / 105; Pulse 93; Resp 18; Temp 97.5; Pulse Ox 98% on R/A; Weight 117.03 kg; zb Height 5 ft. 10 in. (177.80 cm); Pain 9/10; 15:34 BP 172 / 102; Pulse 98; Resp 18; Pulse Ox 98% on R/A; Pain 7/10; zb 16:06 BP 171 / 112; Pulse 101; Resp 16; Pulse Ox 96% on R/A; zb 17:00 BP 136 / 88; Pulse 88; Resp 16; Pulse Ox 98% on R/A; zb 18:00 BP 132 / 91; Pulse 80; Resp 18; Pulse Ox 97% on R/A; zb 19:00 BP 117 / 74; Pulse 78; Resp 14; Pulse Ox 98% on R/A; zb 20:00 BP 131 / 80; Pulse 97; Resp 16; Pulse Ox 96% on R/A; jb4 21:00 BP 131 / 87; Pulse 78; Resp 16; Pulse Ox 98% on R/A; jb4 15:26 Body Mass Index 37.02 (117.03 kg, 177.80 cm) zb MDM: 14:27 Patient medically screened. cp 16:07 Physician consultation: Zane Sanchez MD was contacted at 16:07, regarding consult, cp patient's condition, if pain continues start nitro drip, give Lovenox and admit to ICU. 16:20 Data reviewed: vital signs, nurses notes, lab test result(s), EKG, radiologic studies, cp plain films, and as a result, I will admit patient. 16:20 Test interpretation: by ED physician or midlevel provider: ECG. Counseling: I had a cp detailed discussion with the patient and/or guardian regarding: the historical points, exam findings, and any diagnostic results supporting the discharge/admit diagnosis, lab results, radiology results, the need for further work-up and treatment in the hospital. Response to treatment: the patient's symptoms have markedly improved after treatment. 02/15 14:20 Order name: Basic Metabolic Panel; Complete Time: 15:13 02/15 15:13 Interpretation: Normal except: GLUC 225; CRE 1.37; GFR 59. 02/15 14:20 Order name: CBC with Diff; Complete Time: 15:02 02/15 14:20 Order name: LFT's; Complete Time: 15:13 02/15 14:20 Order name: Magnesium; Complete Time: 15:13 02/15 14:20 Order name: NT PRO-BNP; Complete Time: 15:13 02/15 14:20 Order name: PT-INR; Complete Time: 15:02 02/15 14:20 Order name: Troponin (emerg Dept Use Only); Complete Time: 15:13 02/15 14:20 Order name: XRAY Chest (1 view); Complete Time: 15:49 02/15 15:50 Interpretation: Report reviewed. 02/15 17:26 Order name: COVID-19 sv 02/15 17:27 Order name: COVID-19: in house test please cp 02/15 18:02 Order name: CORONAVIRUS EDSD 02/15 18:03 Order name: CORONAVIRUS EDSD 02/15 18:51 Order name: SARS-COV-2 RT PCR EDSD 02/15 14:20 Order name: EKG; Complete Time: 14:21 cp 02/15 14:20 Order name: Cardiac monitoring; Complete Time: 14:26 cp 02/15 14:20 Order name: EKG - Nurse/Tech; Complete Time: 14:26 cp 02/15 14:20 Order name: IV Saline Lock; Complete Time: 14:26 cp 02/15 14:20 Order name: Labs collected and sent; Complete Time: 14: cp 02/15 14:20 Order name: O2 Per Protocol; Complete Time: 14:26 cp 02/15 14:20 Order name: O2 Sat Monitoring; Complete Time: 14:26 cp 02/15 15:06 Order name: EKG: repeat; Complete Time: 15:07 cp 02/15 15:38 Order name: Blood Pressure Recheck: bilateral upper extremity; Complete Time: 16:45 cp EC:23 Rate is 88 beats/min. Rhythm is regular. AR interval is normal. QRS interval is normal. cp QT interval is normal. Interpreted by me. Reviewed by me. Administered Medications: 14:21 CANCELLED (Physician Discretion): Nitroglycerin 0.4 mg Sublingual once; every five cp minute if needed x3 14:39 Drug: NS 0.9% 1000 ml Route: IV; Rate: 1 bolus; Site: left antecubital; zb 15:00 Follow up: Response: No adverse reaction zb 15:39 Follow up: Response: No adverse reaction; IV Status: Completed infusion; IV Intake: zb 1000ml 14:39 Drug: Nitro-Bid Ointment 2 % 1 inches Route: Transdermal; Site: anterior chest wall; zb 14:39 Drug: Zofran (Ondansetron) 4 mg Route: IVP; Site: left antecubital; zb 15:00 Follow up: Response: No adverse reaction zb 15:02 Drug: morphine 4 mg Route: IVP; Site: left antecubital; zb 15:15 Follow up: Response: No adverse reaction; Pain is unchanged, physician notified; RASS: zb Agitated (+2) 15:14 Drug: morphine 4 mg Route: IVP; Site: left antecubital; zb 15:30 Follow up: Response: No adverse reaction; Pain is unchanged, physician notified; RASS: zb Restless (+1) 15:16 Drug: Dilaudid 1 mg Route: IVP; Site: left antecubital; zb 15:45 Follow up: Response: No adverse reaction; Pain is decreased; Anxiety decreased zb 16:05 Drug: Ativan 0.5 mg Route: IVP; Site: left antecubital; zb 16:30 Follow up: Response: No adverse reaction zb 16:17 CANCELLED (Physician Discretion): Nitro Drip - (Nitroglycerin 50 mg, D5W 250 ml) IV at cp 5 mcg/min continuous; titrate until desired hemodynamic response. 17:00 Drug: Magnesium Sulfate 1 grams Route: IVPB; Infused Over: 1 hrs; Site: left zb antecubital; 18:00 Follow up: Response: No adverse reaction; IV Status: Completed infusion; IV Intake: zb 100ml 17:00 Drug: NS 0.9% 1000 ml Route: IV; Rate: 125 ml/hr; Site: left antecubital; zb 21:10 Follow up: Response: No adverse reaction; IV Status: Infusion continued upon admission jb4 17:00 Drug: Lovenox 1 mg/kg Route: Sub-Q; Site: left lower abdomen; zb 18:00 Follow up: Response: No adverse reaction zb 17:00 Drug: Afrin Drops (0.05 %) 1 sprays Route: Intranasal; Site: both nares; zb 18:00 Follow up: Response: No adverse reaction zb 17:00 Drug: Metoprolol 5 mg Route: IVP; Site: left antecubital; zb 18:00 Follow up: Response: No adverse reaction zb 17:39 CANCELLED (Physician Discretion; discussed bp): Nitro Drip - (Nitroglycerin 50 mg, D5W zb 250 ml) IV at 5 mcg/min continuous; titrate until desired hemodynamic response. 17:40 Drug: Metoprolol 50 mg Route: PO; zb 18:00 Follow up: Response: No adverse reaction zb 18:00 Drug: Dilaudid 1 mg Route: IVP; Site: left antecubital; zb 19:33 Follow up: Response: No adverse reaction zb 19:34 Follow up: Response: Pain is decreased; RASS: Alert and Calm (0) zb Disposition: 02/16 06:34 Co-signature as Attending Physician, Jesse Tafoya MD I agree with the assessment and kdr plan of care. Disposition: 02/16/20 16:18 Hospitalization ordered by Gonzalez Robin for Observation. Preliminary diagnosis is Chest pain, unspecified. - Bed requested for Telemetry/MedSurg (observation). - Status is Observation. jb4 - Condition is Stable. - Problem is new. - Symptoms have improved. Signatures: Dispatcher [employer] Gabrielle aC RN RN dw Rittger, Kevin, MD MD kdr Chad Mcneal PA PA cp Bryson, James, RN RN jbLyubov Wilson RN RN [email or web address] Corrections: (The following items were deleted from the chart) 02/15 14:21 14:20 Nitroglycerin 0.4 mg Sublingual once; every five minute if needed x3 ordered. cp cp 16:17 16:07 Nitro Drip - (Nitroglycerin 50 mg, D5W 250 ml) IV at 5 mcg/min continuous; cp titrate until desired hemodynamic response. ordered. cp 17:39 17:25 Nitro Drip - (Nitroglycerin 50 mg, D5W 250 ml) IV at 5 mcg/min continuous; zb titrate until desired hemodynamic response. ordered. cp 19:53 16:18 Hospitalization Ordered by Gonzalez Robin DO for Observation. Preliminary dw diagnosis is Chest pain, unspecified. Bed requested for Telemetry/MedSurg (observation). Status is Observation. Condition is Stable. Problem is new. Symptoms have improved. cp 21:10 19:53 02/16/2020 16:18 Hospitalization Ordered by Gonzalez Robin DO for Observation. jb4 Preliminary diagnosis is Chest pain, unspecified. Bed requested for Telemetry/MedSurg (observation). Status is Observation. Condition is Stable. Problem is new. Symptoms have improved. dw
--- NOTE | 2020-02-16 16:19 | ER ---
Nurse's Notes [facility] Name: Mat Black Age: 34 yrs Sex: Male : 1985 Arrival Date: 02/16/2020 Time: 14:18 Bed 18 Private MD: Diagnosis: Chest pain, unspecified Presentation: 02/15 14:39 Chief complaint: EMS states: pt responding to care accident started to experience chest zb pain with left side radiation about 45 mins ago. EMS was called pt was diaphoretic on seen, aox4 blood pressure was elevated. 50mcg of fentalyl given, aspirin 81 x4 given, and 1000ml of NS. Coronavirus screen: At this time, the client does not indicate any symptoms associated with coronavirus-19. Ebola Screen: No symptoms or risks identified at this time. 14:39 Method Of Arrival: EMS: [facility] zb 15:26 Initial Sepsis Screen: Does the patient meet any 2 criteria? No. Patient's initial zb sepsis screen is negative. Does the patient have a suspected source of infection? No. Patient's initial sepsis screen is negative. Risk Assessment: Do you want to hurt yourself or someone else? Patient reports no desire to harm self or others. Onset of symptoms was February 16, 2020. 15:26 Acuity: LILA 3 zb Triage Assessment: 14:30 General: Appears in no apparent distress. uncomfortable, Behavior is cooperative, zb agitated, anxious. Pain: Complains of pain in mid-sternal area, Left arm Pain radiates to left arm Pain currently is 9 out of 10 on a pain scale. Quality of pain is described as heavy, pressure, Pain began 30 min ago. Is continuous, Alleviated by nothing. Noted to be agitated, moaning, Also complains of shortness of breath. EENT: No signs and/or symptoms were reported regarding the EENT system. Neuro: Level of Consciousness is awake, alert, obeys commands, Oriented to person, place, time, situation. Cardiovascular: Reports chest pain, diaphoresis, nausea, shortness of breath, Heart tones S1 S2 Capillary refill < 3 seconds in bilateral fingers Patient's skin is warm and dry. Respiratory: Airway is patent Respiratory effort is even, unlabored, Respiratory pattern is regular, symmetrical. GI: Abdomen is round non-distended, obese. : No signs and/or symptoms were reported regarding the genitourinary system. Derm: Skin is intact, is healthy with good turgor, Skin is flushed. Musculoskeletal: Circulation, motion, and sensation intact. Capillary refill < 3 seconds, in bilateral fingers. Range of motion: intact in all extremities. Historical: - Home Meds: 15:20 atorvastatin Oral [Active]; carvedilol Oral [Active]; losartan Oral [Active]; Metformin zb Oral [Active]; rosuvastatin 5 mg oral tab [Active]; - PMHx: 15:20 Diabetes - IDDM; Hyperlipidemia; Hypertension; zb - PSHx: 15:20 Hernia repair; Heart stents; zb - Immunization history:: Adult Immunizations up to date. - Social history:: Smoking status: Patient reports the use of cigarette tobacco products, denies chronic smoking, but will smoke occasionally, Patient reports use of chewing tobacco. Screenin:30 Abuse screen: Denies threats or abuse. Denies injuries from another. Nutritional zb screening: No deficits noted. Tuberculosis screening: No symptoms or risk factors identified. Fall Risk None identified. Assessment: 15:30 Reassessment: Patient appears in no apparent distress at this time. Patient and/or zb family updated on plan of care and expected duration. Pain level reassessed. Patient is alert, oriented x 3, equal unlabored respirations, skin warm/dry/pink. pt c/o pain. ECP notified. 16:30 Reassessment: Patient appears in no apparent distress at this time. Patient and/or zb family updated on plan of care and expected duration. Pain level reassessed. Patient is alert, oriented x 3, equal unlabored respirations, skin warm/dry/pink. patient states pain is decreasing, and he is able to breathe a little better rates pain at 4-5/10. reposition. girlfriend bedside. EKG done, notified PA PAGE. 17:30 Reassessment: Patient appears in no apparent distress at this time. Patient and/or zb family updated on plan of care and expected duration. Pain level reassessed. Patient is alert, oriented x 3, equal unlabored respirations, skin warm/dry/pink. pt states pain is coming back. notified ECP. medication ordered. 18:30 Reassessment: Patient appears in no apparent distress at this time. Patient and/or zb family updated on plan of care and expected duration. Pain level reassessed. Patient is alert, oriented x 3, equal unlabored respirations, skin warm/dry/pink. pt more calm, educated on POC. food given, reposition, and pillow provider. 19:00 Reassessment: Patient appears in no apparent distress at this time. Patient and/or jb4 family updated on plan of care and expected duration. Pain level reassessed. Patient is alert, oriented x 3, equal unlabored respirations, skin warm/dry/pink. 19:39 Reassessment: Pt informed of negative Covid- 19 results. jb4 21:08 Reassessment: Patient appears in no apparent distress at this time. Patient and/or jb4 family updated on plan of care and expected duration. Pain level reassessed. Patient is alert, oriented x 3, equal unlabored respirations, skin warm/dry/pink. Vital Signs: 15:26 BP 158 / 105; Pulse 93; Resp 18; Temp 97.5; Pulse Ox 98% on R/A; Weight 117.03 kg; zb Height 5 ft. 10 in. (177.80 cm); Pain 9/10; 15:34 BP 172 / 102; Pulse 98; Resp 18; Pulse Ox 98% on R/A; Pain 7/10; zb 16:06 BP 171 / 112; Pulse 101; Resp 16; Pulse Ox 96% on R/A; zb 17:00 BP 136 / 88; Pulse 88; Resp 16; Pulse Ox 98% on R/A; zb 18:00 BP 132 / 91; Pulse 80; Resp 18; Pulse Ox 97% on R/A; zb 19:00 BP 117 / 74; Pulse 78; Resp 14; Pulse Ox 98% on R/A; zb 20:00 BP 131 / 80; Pulse 97; Resp 16; Pulse Ox 96% on R/A; jb4 21:00 BP 131 / 87; Pulse 78; Resp 16; Pulse Ox 98% on R/A; jb4 15:26 Body Mass Index 37.02 (117.03 kg, 177.80 cm) ED Course: 14:18 Patient arrived in ED. 14:18 Chad Mcneal PA is PHCP. cp 14:18 Jesse Tafoya MD is Attending Physician. cp 14:23 Lyubov Gill, RN is Primary Nurse. zb 14:30 Patient has correct armband on for positive identification. Bed in low position. Call zb light in reach. Side rails up X 1. clinical research monitor on. Pulse ox on. NIBP on. Door closed. Noise minimized. 14:30 Maintain EMS IV. Dressing intact. Good blood return noted. Site clean \T\ dry. Gauge \T\ zb site: 20G LAC . 14:30 EKG done, reviewed by Chad VERDE. zb 15:22 XRAY Chest (1 view) In Process Unspecified. EDMS 15:28 Triage completed. zb 15:36 Arm band placed on left wrist. zb 15:45 EKG done, by ED staff, reviewed by Chad VERDE. zb 16:18 Gonzalez Robin DO is Hospitalizing Provider. cp 18:09 COVID-19 Sent. sv 20:41 Primary Nurse role handed off by Lyubov Gill, BRANDON ar5 21:00 No provider procedures requiring assistance completed. Patient admitted, IV remains in jb4 place. 21:08 Deandre Mckoy, RN is Primary Nurse. jb4 Administered Medications: 14:21 CANCELLED (Physician Discretion): Nitroglycerin 0.4 mg Sublingual once; every five cp minute if needed x3 14:39 Drug: NS 0.9% 1000 ml Route: IV; Rate: 1 bolus; Site: left antecubital; zb 15:00 Follow up: Response: No adverse reaction zb 15:39 Follow up: Response: No adverse reaction; IV Status: Completed infusion; IV Intake: zb 1000ml 14:39 Drug: Nitro-Bid Ointment 2 % 1 inches Route: Transdermal; Site: anterior chest wall; zb 14:39 Drug: Zofran (Ondansetron) 4 mg Route: IVP; Site: left antecubital; zb 15:00 Follow up: Response: No adverse reaction zb 15:02 Drug: morphine 4 mg Route: IVP; Site: left antecubital; zb 15:15 Follow up: Response: No adverse reaction; Pain is unchanged, physician notified; RASS: zb Agitated (+2) 15:14 Drug: morphine 4 mg Route: IVP; Site: left antecubital; zb 15:30 Follow up: Response: No adverse reaction; Pain is unchanged, physician notified; RASS: zb Restless (+1) 15:16 Drug: Dilaudid 1 mg Route: IVP; Site: left antecubital; zb 15:45 Follow up: Response: No adverse reaction; Pain is decreased; Anxiety decreased zb 16:05 Drug: Ativan 0.5 mg Route: IVP; Site: left antecubital; zb 16:30 Follow up: Response: No adverse reaction zb 16:17 CANCELLED (Physician Discretion): Nitro Drip - (Nitroglycerin 50 mg, D5W 250 ml) IV at cp 5 mcg/min continuous; titrate until desired hemodynamic response. 17:00 Drug: Magnesium Sulfate 1 grams Route: IVPB; Infused Over: 1 hrs; Site: left zb antecubital; 18:00 Follow up: Response: No adverse reaction; IV Status: Completed infusion; IV Intake: zb 100ml 17:00 Drug: NS 0.9% 1000 ml Route: IV; Rate: 125 ml/hr; Site: left antecubital; zb 21:10 Follow up: Response: No adverse reaction; IV Status: Infusion continued upon admission jb4 17:00 Drug: Lovenox 1 mg/kg Route: Sub-Q; Site: left lower abdomen; zb 18:00 Follow up: Response: No adverse reaction zb 17:00 Drug: Afrin Drops (0.05 %) 1 sprays Route: Intranasal; Site: both nares; zb 18:00 Follow up: Response: No adverse reaction zb 17:00 Drug: Metoprolol 5 mg Route: IVP; Site: left antecubital; zb 18:00 Follow up: Response: No adverse reaction zb 17:39 CANCELLED (Physician Discretion; discussed bp): Nitro Drip - (Nitroglycerin 50 mg, D5W zb 250 ml) IV at 5 mcg/min continuous; titrate until desired hemodynamic response. 17:40 Drug: Metoprolol 50 mg Route: PO; zb 18:00 Follow up: Response: No adverse reaction zb 18:00 Drug: Dilaudid 1 mg Route: IVP; Site: left antecubital; zb 19:33 Follow up: Response: No adverse reaction zb 19:34 Follow up: Response: Pain is decreased; RASS: Alert and Calm (0) zb Intake: 15:39 IV: 1000ml; Total: 1000ml. zb 18:00 IV: 100ml; Total: 1100ml. zb Outcome: 16:18 Decision to Hospitalize by Provider. cp 21:09 Admitted to Med/surg accompanied by tech, via wheelchair, room 224, with chart. jb4 21:09 Condition: stable 21:09 Discharge instructions given to patient, significant other, Instructed on the need for admit, Demonstrated understanding of instructions. 21:10 Patient left the ED. jb4 Signatures: Dispatcher [employer] Jennifer Egan, RN RN Chad Cintron PA PA cp Bryson, James RN RN jb4 Milvia Arevalo Zipporah, RN RN shannonb
--- NOTE | 2020-02-16 17:16 | P.HP ---
Certification for Inpatient Patient admitted to: Observation With expected LOS: <2 Midnights Patient will require the following post-hospital care: None Practitioner: I am a practitioner with admitting privileges, knowledge of patient current condition, hospital course, and medical plan of care. Services: Services provided to patient in accordance with Admission requirements found in Title 42 Section 412.3 of the Code of Federal Regulations Patient History Date of Service: 02/16/20 Primary Care Provider: Dr. Keene; Cardiology-Dr. Sanchez Reason for admission: Chest pain History of Present Illness: 34-year-old male with diabetes mellitus type 2 insulin dependent, hypertension, hyperlipidemia, CAD with prior stent, obesity. Patient presents with chest pain. Chest pain occurred around 1:00 p.m. while he was at work. Pain was mainly to the right side but radiated to the left arm. He was associated with some shortness of breath. Patient reports history of CAD with prior stent about 2 years ago. He reports having a follow up with cardiology about a year after that event. He reports taking multiple medica tions. He is no longer taking Plavix. He ran out of medication probably about a year ago. Other medications includes medication for diabetes, hypertension. He came to the ER for further evaluation. In the ER patient evaluated. EKG shows no significant ST-T changes. Creatinine 1.37. GFR 59. Glucose 225. Troponin negative. Patient required morphine for pain. Patient was given nitro patch as well. Patient admitted for further evaluation and treatment. Allergies No Known Allergies Allergy (Verified 05/08/19 14:44) Home medications list reviewed: Yes Home Medications: Insulin Glargine,Hum.rec.anlog [Lantus Solostar] 75 units SQ BID 03/25/18 Insulin Lispro [Humalog] 25 unit SQ TIDWM 03/25/18 Losartan Potassium 25 mg PO DAILY 03/25/18 Metformin ER [Glucophage ER*] 1,000 mg PO BID 03/25/18 carvediloL [Carvedilol] 12.5 mg PO BID 03/25/18 Atorvastatin Calcium [Lipitor] 80 mg PO BEDTIME #30 tab 03/26/18 Clopidogrel Bisulfate [Plavix*] 75 mg PO DAILY #30 tablet 03/26/18 gemfibroziL [Lopid*] 600 mg PO BID #60 tab 03/26/18 ondansetron HCL [Zofran] 8 mg PO Q8HP 10 Days #80 tablet 05/10/19 - Past Medical/Surgical History Diabetic: Yes -: Diabetes mellitus type 2 insulin-dependent -: Morbid obesity -: Mixed hyperlipidemia -: CAD with prior stent -: Obesity -: History pancreatitis -: Tobacco abuse -: Left ankle Sx and Right Knee Psychosocial/ Personal History: Patient is - Family History Father -: Heart disease - Social History Smoking Status: Light Tobacco smoker (1-9 cigarettes/day) (Patient dips tobacco) Alcohol use: Yes CD- Drugs: No Caffeine use: Yes Place of Residence: Home Review of Systems General: As per HPI Eyes: Unremarkable ENT: Unremarkable Respiratory: Shortness of Breath, As per HPI Cardiovascular: Chest Pain, As per HPI Gastrointestinal: Unremarkable Genitourinary: Unremarkable Musculoskeletal: Unremarkable Integumentary: Unremarkable Neurological: Unremarkable Lymphatics: Unremarkable Physical Examination - Physical Exam General: Alert, In no apparent distress, Oriented x3, Cooperative HEENT: Atraumatic, Mucous membr. moist/pink Neck: Supple Respiratory: Clear to auscultation bilaterally, Normal air movement Cardiovascular: Normal pulses, Regular rate/rhythm Gastrointestinal: Normal bowel sounds, Soft and benign, Non-distended, No tenderness, No masses, No rebound, No guarding Musculoskeletal: No erythema, No tenderness, No warmth Neurological: Normal speech, Normal strength at 5/5 x4 extr, Normal tone, Normal affect - Studies Laboratory Data (last 24 hrs) 02/16/20 14:24: PT 12.1, INR 1.03 02/16/20 14:24: WBC 8.2, Hgb 14.0, Hct 42.4, Plt Count 183 02/16/20 14:24: Sodium 141, Potassium 3.9, BUN 17, Creatinine 1.37 H, Glucose 225 H, Magnesium 1.7 L, Total Bilirubin 0.2, AST 23, ALT 40, Alkaline Phosphatase 77 Assessment and Plan - Plan Impression: Chest pain with history of CAD and prior stent Hypertension Diabetes mellitus type 2 insulin-dependent Mixed hyperlipidemia Obesity Plan: Patient would noted for further evaluation and treatment. Will monitor telemetry and cardiac enzymes. Will obtain echocardiogram. Cardiology consulted to further evaluate. Continue with aspirin, Plavix. Will increase carvedilol to 25 mg 1 pill twice daily for better blood pressure control. Restart the Arb inhibitor. Continue Lipitor, Lopid. Will provide insulin sliding scale. Lovenox for DVT prophylaxis started. Will continue to monitor the patient closely. Await further recommendations from cardiology. Patient may require further cardiac evaluation tomorrow. Will keep the patient NPO after midnight. Discharge Plan: Home Plan to discharge in: 24 Hours - Advance Directives Does patient have a Living Will: No Does patient have a Durable POA for Healthcare: No - Code Status/Comfort Care Code Status Assessed: Yes (Patient is full code) Time Spent Managing Pts Care (In Minutes): 55
[2020-02-16] MEDS ORDERED: METOPROLOL TAR 25 MG TAB ONE (17:17)
[2020-02-16] MEDS ORDERED: METOPROLOL TARTRATE 5 MG/5 ML INJ IV ONE (17:18)
[2020-02-16] MEDS ORDERED: ENOXAPARIN 100 MG/ML SYR SQ ONE (17:18)
[2020-02-16] MEDS ORDERED: OXYMETAZOLINE HCL 0.05% 15ML NAS ONE (17:19)
[2020-02-16] MEDS ORDERED: MAGNESIUM SULFATE 1 gm IVPB 1 GM/100 ML BAG IV ONE (17:19)
[2020-02-16] MEDS ORDERED: ENOXAPARIN 30 MG/0.3 ML SQ ONE (17:19)
[2020-02-16] MEDS ORDERED: ROSUVASTATIN 10 MG TAB PO SCH (21:00)
[2020-02-16] MEDS ORDERED: GLUCAGON 1 MG/VIAL IM PRN (21:31)
[2020-02-16] MEDS ORDERED: ATORVASTATIN 80 MG TAB PO SCH (21:31)
[2020-02-16] MEDS: FLUTICASONE 50MCG NASAL SPRAY NAS SCH (21:31)
[2020-02-16] MEDS ORDERED: CETIRIZINE HCL 5 MG TABLET PO PRN (21:31)
[2020-02-16] MEDS ORDERED: ONDANSETRON 4 MG/2 ML VIAL IV PRN (21:31)
[2020-02-16] MEDS ORDERED: INSULIN GLARGINE 100 UNITS/ML SQ SCH (21:31)
[2020-02-16] MEDS ORDERED: LORazepam 2 MG/ML VIAL IV PRN (21:31)
[2020-02-16] MEDS ORDERED: MORPHINE 2 MG/ML SYR IV PRN (21:31)
[2020-02-16] MEDS: INSULIN -REGULAR HUMAN 50 UNIT/0.5 ML ML SQ SCH (21:31)
[2020-02-16] MEDS ORDERED: D50W 25 GM/50 ML SYRINGE IV PRN (21:31)
[2020-02-16] MEDS ORDERED: HYDROCODONE/APAP 7.5/325 MG TAB PO PRN (21:31)
[2020-02-16] MEDS ORDERED: ACETAMINOPHEN 500 MG TAB PO PRN (21:31)
[2020-02-16 21:40] VITALS: BMI 37.1
[2020-02-16] MEDS: CLOPIDOGREL 75 MG TABLET PO SCH (22:19)
[2020-02-16] MEDS: ASPIRIN EC 81 MG TAB PO SCH (22:19)
[2020-02-16] MEDS: gemfibroziL 600 MG TAB PO SCH (22:19)
[2020-02-16] MEDS: carvediloL 25 MG TAB PO SCH (22:20)
[2020-02-16 23:08] LABS: CKMB Creatine Kinase MB 134.5 ng/mL (0.3-3.6); Troponin I 15.5 ng/mL (0.0-0.045)
[2020-02-17] MEDS ORDERED: VALSARTAN 80 MG TAB ONE (05:08)
[2020-02-17] MEDS: CLOPIDOGREL 75 MG TABLET PO SCH (05:34)
[2020-02-17] MEDS: ASPIRIN EC 81 MG TAB PO SCH (05:34)
[2020-02-17] MEDS: carvediloL 25 MG TAB PO SCH ×2 (05:37→17:53)
[2020-02-17] MEDS ORDERED: HEPA 1000U/500MLS 1,000 UNIT/500 ML BAG IV ONE (06:55)
[2020-02-17] MEDS ORDERED: LIDOCAINE 1% 20 ML MDV ONE (06:55)
[2020-02-17] MEDS ORDERED: NA CHLORIDE 0.9% 50 ML ONE (06:56)
[2020-02-17] MEDS ORDERED: ATROPINE SULF 1 MG/10 ML SYR IV ONE (06:56)
[2020-02-17 07:13] LABS: BUN Blood Urea Nitrogen 13 mg/dL (7-18); Bicarbonate 26 mmol/L (21-32); Glucose Level 230 mg/dL (74-106); HDL Cholesterol 27 mg/dL (40-60); Sodium Level 138 mmol/L (136-145)
[2020-02-17 07:16] LABS: CKMB Creatine Kinase MB 190.9 ng/mL (0.3-3.6); Troponin I 60.2 ng/mL (0.0-0.045)
[2020-02-17 07:17] LABS: Magnesium 1.9 mg/dL (1.8-2.4); Potassium 4.1 mmol/L (3.5-5.1)
[2020-02-17] MEDS ORDERED: MIDAZOLAM HCL 2 MG/2 ML INJ ONE ×2 (07:27→07:38)
[2020-02-17 07:28] LABS: LDL, Direct 112 mg/dL (100-129)
[2020-02-17] MEDS ORDERED: NA CHLORIDE 0.9% 500 ML ONE (07:28)
[2020-02-17] MEDS ORDERED: FENTANYL CITR 100 MCG/2 ML ONE (07:28)
[2020-02-17] MEDS: INSULIN -REGULAR HUMAN 50 UNIT/0.5 ML ML SQ SCH ×3 (07:30→17:53)
[2020-02-17] MEDS ORDERED: PRASUGREL (EFFIENT) 10 MG TAB ONE (08:20)
[2020-02-17] MEDS ORDERED: ACETYLCYST 20% 4 ML VIAL IH ONE (08:22)
[2020-02-17] MEDS ORDERED: VALSARTAN 40 MG TAB PO SCH (09:00)
[2020-02-17] MEDS ORDERED: Enoxaparin 120 MG/0.8 ML SYR SQ SCH (09:00)
[2020-02-17] MEDS: FLUTICASONE 50MCG NASAL SPRAY NAS SCH (09:00)
--- NOTE | 2020-02-17 09:04 | P.PN ---
Subjective Date of Service: 02/17/20 Primary Care Provider: Dr. Keene; Cardiology-Dr. Sanchez Chief Complaint: Chest pain Subjective: Other (Overnite cardiac enzymes were elevated indicating NSTEMI. Mild chest pain noted. Blood pressure improved) Physical Examination - Vital Signs Temperature: 97.5 F Blood Pressure: 124/88 Pulse: 72 Respirations: 12 Pulse Ox (%): 96 - Physical Exam General: Alert, In no apparent distress, Oriented x3, Cooperative HEENT: Atraumatic Neck: Supple Respiratory: Clear to auscultation bilaterally, Normal air movement Cardiovascular: Normal pulses, Regular rate/rhythm Gastrointestinal: Normal bowel sounds, No tenderness, No masses, No rebound, No guarding Neurological: Normal speech, Normal strength at 5/5 x4 extr, Normal tone, Normal affect - Studies Laboratory Data (last 24 hrs) 02/16/20 14:24: PT 12.1, INR 1.03 02/16/20 14:24: WBC 8.2, Hgb 14.0, Hct 42.4, Plt Count 183 02/16/20 14:24: Sodium 141, Potassium 3.9, BUN 17, Creatinine 1.37 H, Glucose 225 H, Magnesium 1.7 L, Total Bilirubin 0.2, AST 23, ALT 40, Alkaline Phosphatase 77 Medications List Reviewed: Yes Assessment & Plan Discharge Plan: Home Plan to discharge in: 48 Hours Physician Review Additional Text: Impression: Chest pain secondary to NSTEMI with history of CAD and prior stent Hypertension Diabetes mellitus type 2 insulin-dependent Mixed hyperlipidemia Obesity Plan: Chest pain secondary to NSTEMI with history of CAD and prior stent: Cardiology plans for heart catheterization this morning. Await echocardiogram. Continue aspirin, Plavix, Lipitor, Lopid, beta-yfn therapy and Arb inhibitor. Await further recommendations from cardiology. Await findings from heart catheterization. Hypertension: Blood pressure better controlled. Continue with current medication. Will continue to monitor and adjust. Diabetes mellitus type 2 insulin-dependent: Will check A1c. Continue Accu- Cheks basal insulin. Mixed hyperlipidemia: LDL 112. Total triglycerides 769. Continue current medication. Obesity: Will address lifestyle modification education. Time Spent Managing Pts Care (In Minutes): 55
[2020-02-17] MEDS: gemfibroziL 600 MG TAB PO SCH (10:27)
--- NOTE | 2020-02-17 12:08 | ECHO ---
HEIGHT: 5 ft 10 in WEIGHT: 259 lb 0 oz DATE OF STUDY: 02/17/[address]: Gonzalez Robin DO 2-DIMENSIONAL: YES M.MODE: YES DOPPLER: YES COLOR FLOW: YES TDS: YES PORTABLE: NO DEFINITY: NO BUBBLE STUDY: NO DIAGNOSIS: CORONARY ARTERY DISEASE CARDIAC HISTORY: CATHERIZATION: YES SURGERY: NO PROSTHETIC VALVE: NO PACEMAKER: NO MEASUREMENTS (cm) DIASTOLIC (NORMALS) SYSTOLIC (NORMALS) IVSd 1.2 (0.6-1.2) LA Diam 3.8 (1.9-4.0) LVEF 72% LVIDd 5.3 (3.5-5.7) LVIDs 3.1 (2.0-3.5) %FS 41% LVPWd 1.3 (0.6-1.2) Ao Diam 3.2 (2.0-3.7) 2 DIMENSIONAL ASSESSMENT: RIGHT ATRIUM: NORMAL LEFT ATRIUM: NORMAL RIGHT VENTRICLE: NORMAL LEFT VENTRICLE: NORMAL TRICUSPID VALVE: NORMAL MITRAL VALVE: NORMAL PULMONIC VALVE: NORMAL AORTIC VALVE: NORMAL PERICARDIAL EFFUSION: NONE AORTIC ROOT: NORMAL LEFT VENTRICULAR WALL MOTION: NORMAL DOPPLER/COLOR FLOW: NORMAL COMMENTS: NORMAL 2D ECHOCARDIOGRAM WITH DOPPLER. NO WALL MOTION ABNORMALITY. NO EFFUSION. TECHNOLOGIST: Dhruv LEAVITT
--- NOTE | 2020-02-17 12:58 | P.DS ---
Admission Date: 02/16/20 Discharge Date: 02/17/20 Primary Care Provider: Dr. Keene; Cardiology-Dr. Sanchez Disposition: ROUTINE DISCHARGE Discharge Condition: GOOD Reason for Admission: Chest pain Consultations: Cardiology-Dr. Sanchez Procedures: Heart Catheterization: Stent to the RCA performed. ECHO: EF 72% LEFT VENTRICULAR WALL MOTION: NORMAL DOPPLER/COLOR FLOW: NORMAL COMMENTS: NORMAL 2D ECHOCARDIOGRAM WITH DOPPLER. NO WALL MOTION ABNORMALITY. NO EFFUSION. Medical Problem List: Chest pain secondary to NSTEMI with history of CAD and prior stent Hypertension Diabetes mellitus type 2 insulin-dependent Mixed hyperlipidemia Suspect obstructive sleep apnea GERD Obesity, BMI 37.2 Brief History of Present Illness: 34-year-old male with diabetes mellitus type 2 insulin dependent, hypertension, hyperlipidemia, CAD with prior stent, obesity. Patient presents with chest pain. Chest pain occurred around 1:00 p.m. while he was at work. Pain was mainly to the right side but radiated to the left arm. He was associated with some shortness of breath. Patient reports history of CAD with prior stent about 2 years ago. He reports having a follow up with cardiology about a year after that event. He reports taking multiple medications. He is no longer taking Plavix. He ran out of medication probably about a year ago. Other medications includes medication for diabetes, hypertension. He came to the ER for further evaluation. In the ER patient evaluated. EKG shows no significant ST-T changes. Creatinine 1.37. GFR 59. Glucose 225. Troponin negative. Patient required morphine for pain. Patient was given nitro patch as well. Patient admitted for further evaluation and treatment. Hospital Course: Patient presented with chest pain Patient found to have elevated troponin secondary to NSTEMI. Patient with history of CAD and prior stent. Patient was seen and evaluated by Cardiology. Cardiac intervention was required. Patient had stent placed to the RCA. Patient tolerated the procedure well. At discharge patient without significant chest pain. Medications have been adjusted. At discharge patient will continue with aspirin 81 mg daily, Plavix 75 mg daily, Lipitor 80 mg daily, gemfibrozil 600 mg 1 pill twice daily, fish oil 2000 mg twice daily, carvedilol 25 mg 1 pill twice daily, and Diovan 40 mg daily. Cardiology also wants patient to start on Protonix 40 mg daily. Recommend follow up with Cardiology 1-2 weeks to follow up this hospitalization. As mentioned above patient with hypertension. Blood pressures were elevated upon admission. Medications were adjusted. Patient previously on carvedilol and Diovan. Both medications were increased. At discharge blood pressure better controlled. At discharge he will continue with Diovan 40 mg daily and carvedilol 25 mg 1 pill twice daily. Recommend to maintain blood pressure less than 130/80. Further adjustment can be done by his PCP or cardiology. Patient with diabetes mellitus type 2 insulin dependent. A1c 9.4. Metformin was held in preparation for heart catheterization. At discharge metformin will need to be held for at least 2 days then restart after 48 hr. At discharge the patient will also continue with his insulin regimen of Basaglar 50 units at bedtime and NovoLog 25 units 3 times a day. Patient needs better diabetic control. Recommend to maintain blood sugar less than 140 fasting and less than 200 after meals. If blood sugars remain above 200. His insulin may need to be adjusted. Recommend follow up with PCP in 1 week to further monitor and adjust his medication. Patient with mixed hyperlipidemia. LDL 112. Triglycerides 769. Medications were increased for better control. At discharge he will continue with gemfibrozil 600 mg 1 pill twice daily. Lipitor as been increased to 80 mg daily. Additional medication includes fish oil 2000 mg 1 pill twice daily. Recommend to recheck fasting lipid panel in 4-6 weeks to monitor his progress. Recommend 2000 ADA diet. Patient with obesity. BMI 37. Lifestyle modification education provided. Patient may have underlying GERD. As recommended above patient will continue with Protonix 40 mg daily. Patient may benefit with GI evaluation as an outpatient. Patient may have underlying obstructive sleep apnea. Recommend to establish care with pulmonology for sleep study to further evaluate. Vital Signs/Physical Exam: Temp Pulse Resp BP Pulse Ox 97.5 F 80 16 131/80 96 02/17/20 09:03 02/17/20 10:07 02/17/20 10:07 02/17/20 10:07 02/17/20 09:03 General: Alert, In no apparent distress, Oriented x3, Cooperative HEENT: Atraumatic Neck: Supple Respiratory: Clear to auscultation bilaterally, Normal air movement Cardiovascular: Normal pulses, Regular rate/rhythm Gastrointestinal: Normal bowel sounds, No tenderness, No masses, No rebound, No guarding Neurological: Normal speech, Normal strength at 5/5 x4 extr, Normal tone, Normal affect Laboratory Data at Discharge: WBC 8.2 K/uL (4.3-10.9) 02/16/20 14:24 Hgb 14.0 g/dL (13.6-17.9) 02/16/20 14:24 Hct 42.4 % (39.6-49.0) 02/16/20 14:24 Plt Count 183 K/uL (152-406) 02/16/20 14:24 PT 12.1 SECONDS (9.5-12.5) 02/16/20 14:24 INR 1.03 02/16/20 14:24 Sodium 138 mmol/L (136-145) 02/17/20 06:18 Potassium 4.1 mmol/L (3.5-5.1) 02/17/20 06:18 BUN 13 mg/dL (7-18) 02/17/20 06:18 Creatinine 1.05 mg/dL (0.55-1.3) 02/17/20 06:18 Glucose 230 mg/dL (74-106) H 02/17/20 06:18 Magnesium 1.9 mg/dL (1.8-2.4) 02/17/20 06:18 Total Bilirubin 0.2 mg/dL (0.2-1.0) 02/16/20 14:24 AST 23 U/L (15-37) 02/16/20 14:24 ALT 40 U/L (12-78) 02/16/20 14:24 Alkaline Phosphatase 77 U/L (45-117) 02/16/20 14:24 Troponin I 60.20 ng/mL (0.0-0.045) H* 02/17/20 06:18 Triglycerides 769 mg/dL (<150) H 02/17/20 06:18 Cholesterol 210 mg/dL (<200) H 02/17/20 06:18 LDL Cholesterol Direct 112 mg/dL (100-129) 02/17/20 06:18 HDL Cholesterol 27 mg/dL (40-60) L 02/17/20 06:18 Cholesterol/HDL Ratio 7.78 02/17/20 06:18 Home Medications: Insulin Aspart [Novolog Flexpen] 25 units SQ TID 02/16/20 Insulin Glargine,Hum.rec.anlog [Basaglar Kwikpen U-100] 50 mg SQ BEDTIME 02/16/20 Metformin HCl 1,000 mg PO BID 02/16/20 gemfibroziL [Lopid*] 600 mg PO BID 02/16/20 Atorvastatin Calcium [Lipitor] 80 mg PO DAILY #30 tablet 02/17/20 Clopidogrel Bisulfate [Plavix*] 75 mg PO DAILY #30 tablet 02/17/20 Docosahexanoic AC/Epa [Fish Oil 1,000 MG CAP] 2 cap PO BID #120 cap 02/17/20 Fluticasone [Flonase 50MCG Nasal Ute*] 1 sprays JOVANNA BID #1 btl 02/17/20 Pantoprazole [Protonix Tab] 40 mg PO DAILY #30 tab 02/17/20 Valsartan [Diovan*] 40 mg PO DAILY #30 tab 02/17/20 carvediloL [Coreg*] 25 mg PO BID 6AM 6PM #60 tab 02/17/20 New Medications: carvediloL [Coreg*] 25 mg PO BID 6AM 6PM #60 tab Valsartan [Diovan*] 40 mg PO DAILY #30 tab Docosahexanoic AC/Epa [Fish Oil 1,000 MG CAP] 2 cap PO BID #120 cap Fluticasone [Flonase 50MCG Nasal Ute*] 1 sprays JOVANNA BID #1 btl Atorvastatin Calcium [Lipitor] 80 mg PO DAILY #30 tablet Clopidogrel Bisulfate [Plavix*] 75 mg PO DAILY #30 tablet Pantoprazole [Protonix Tab] 40 mg PO DAILY #30 tab Patient Discharge Instructions: 1. Recommend follow up with PCP in 1 week to follow up this hospitalization. 2. Patient presented with chest pain Patient found to have elevated troponin secondary to NSTEMI. Patient with history of CAD and prior stent. Patient was seen and evaluated by Cardiology. Cardiac intervention was required. Patient had stent placed to the RCA. Patient tolerated the procedure well. At discharge patient without significant chest pain. Medications have been adjusted. At discharge patient will continue with aspirin 81 mg daily, Plavix 75 mg daily, Lipitor 80 mg daily, gemfibrozil 600 mg 1 pill twice daily, fish oil 2000 mg twice daily, carvedilol 25 mg 1 pill twice daily, and Diovan 40 mg daily. Cardiology also wants patient to start on Protonix 40 mg daily. Recommend follow up with Cardiology 1-2 weeks to follow up this hospitalization. 3. As mentioned above patient with hypertension. Blood pressures were elevated upon admission. Medications were adjusted. Patient previously on carvedilol and Diovan. Both medications were increased. At discharge blood pressure better controlled. At discharge he will continue with Diovan 40 mg daily and carvedilol 25 mg 1 pill twice daily. Recommend to maintain blood pressure less than 130/80. Further adjustment can be done by his PCP or cardiology. 4. Patient with diabetes mellitus type 2 insulin dependent. A1c 9.4. Metformin was held in preparation for heart catheterization. At discharge metformin will need to be held for at least 2 days then restart after 48 hr. At discharge the patient will also continue with his insulin regimen of Basaglar 50 units at bedtime and NovoLog 25 units 3 times a day. Patient needs better diabetic control. Recommend to maintain blood sugar less than 140 fasting and less than 200 after meals. If blood sugars remain above 200. His insulin may need to be adjusted. Recommend follow up with PCP in 1 week to further monitor and adjust his medication. 5. Patient with mixed hype rlipidemia. LDL 112. Triglycerides 769. Medications were increased for better control. At discharge he will continue with gemfibrozil 600 mg 1 pill twice daily. Lipitor as been increased to 80 mg daily. Additional medication includes fish oil 2000 mg 1 pill twice daily. Recommend to recheck fasting lipid panel in 4-6 weeks to monitor his progress. Recommend 2000 ADA diet. 6. Patient with obesity. BMI 37. Lifestyle modification education provided. 7. Patient may have underlying GERD. As recommended above patient will continue with Protonix 40 mg daily. Patient may benefit with GI evaluation as an outpatient. 8. Patient may have underlying obstructive sleep apnea. Recommend to establish care with pulmonology for sleep study to further evaluate. Diet: AHA Activity: Ad carmelo Followup: Bong Keene MD [Primary Care Provider] - Time spent managing pt's care (in minutes): 55
[2020-02-17 14:45] VITALS: O2SAT 98
[2020-02-17 17:50] VITALS: BP 132/75; TEMP 97.3
[2020-02-17] MEDS ORDERED: ENOXAPARIN 40 MG/0.4 ML SQ SCH (21:00)
--- NOTE | 2020-02-21 13:17 | OP ---
Date of Procedure: 02/17/2020 Surgeon: Zane Sanchez MD Wheat Inspector: Betzaida Kauffman. The patient received Effient, Angiomax, and aspirin during the procedure. He will remain in the hosp ital at least for few hours for observation and he wants to go home that same day. Case was discusse d with Dr. Robin. He can go home later on today on aspirin, Plavix, statin, and beta-yfn. I wi ll see him in the office in 2 weeks. Indication: Non-ST elevation myocardial infarction. Mr. Black is a 34-year-old male. Has had a hi story of coronary artery disease. Approximately 2 years ago, underwent a primary stent of the distal RCA. He comes back with unstable angina, elevated troponin and was brought to the photographic laboratory supervisor rather e mergently on the day of admission. He underwent a heart catheterization, angioplasty and stent of th e distal RCA as well as an angioplasty of the ostium of the posterolateral branch. Procedure In Detail: Mr. Black of 34, brought to the photographic laboratory supervisor as an inpatient, prepped and draped i n the routine sterile fashion. Given Versed for sedation. A 6-Sami sheath introduced in the right common femoral artery successfully using the Seldinger technique. A JL4 was used to cannulate the l eft main and he has an LAD that was normal. A JR4 was used to cannulate the RCA. He has an anomalou s circumflex that was small, nondominant, normal. The RCA had a 90% stenosis with distal lesion befo re the stent. He had a 90% stenosis in the ostium of the posterolateral branch. A Spicer wire was u sed after using a JR4 guide with side hole, 6-Sami. The Spicer wire was 0.014 in length. The post erolateral stenosis was crossed and was dilated with a balloon of . Following that, we dil ated the distal RCA. The balloon was a 2.5 x 16 Synergy stent and he had after inflation of the stent to 14 atmospheres for 30 seconds. The patient tolerated the procedure well and there we re no complications. Blood loss was 5 mL. Total conscious sedation was 60 minutes. Final Diagnoses: Coronary artery disease status post angioplasty and stent of the distal RCA, status post angioplasty of the posterolateral branch. GYPSY/KHOI Voice ID: [id number] Report ID: [id number]
--- NOTE | 2020-02-21 13:47 | CON ---
Date of Consultation: 02/17/2020 Reason For Consultation: Unstable angina. History Of Present Illness: Mr. Black is a 34-year-old male. I stented his RCA in February 2018. H as done well since. Has not come back for followup much. He has hypertension, diabetes, dyslipidemi a, family history of heart disease. He came in with classic symptoms of substernal chest pressure ra diating to the jaw and the back and arms with diaphoresis, shortness of breath, but no nausea, vomiti ng, palpitation, PND, orthopnea, pedal edema, or syncope. Denied any fever or chills. Allergies: NONE. Medications: At home include Lopid, Coreg, insulin, aspirin, metformin, Crestor, and valsartan. Past Medical History: As stated above. Family History: Positive for heart disease. Review of Systems: Negative. Social History: Negative. Physical Examination: Vital Signs: Stable, afebrile. HEENT: Negative. Neck: Supple with no bruit. Chest: Clear to auscultation and percussion. Cardiac: Revealed a regular rhythm and rate. No murmurs, gallops, or rubs. Abdomen: Benign. Extremities: Revealed no clubbing, cyanosis, or edema. Diagnostic Data: Showed a glucose of 284, creatinine 1.37, otherwise it was negative. Impression And Plan: 1.The patient with coronary artery disease, unstable angina, history of stent in February 2018. Has already received Plavix, Lovenox along with his other medications. We will take him to the geoscience laboratory technician today to define his coronary anatomy. The patient understands the risks and the benefits of the proc edure and he agrees to proceed. 2.Diabetes, poorly controlled. 3.Hypertension, well controlled. 4.Dyslipidemia, well controlled. Case was discussed with Dr. Robin. We will see what the catheter ization shows. NB/MODL Voice ID: [id number] Report ID: [id number]
== END 2020-02-17 18:23 | disposition home or self-care (01) ==
LOC: ER 14:11 → ERHOLD 17:14 → 2ND 20:45
PROVIDERS: ADMIT Family Medicine; ATTEND Family Medicine
DX: I21.4 Non-ST elevation (NSTEMI) myocardial infarction (principal); I25.10 Atherosclerotic heart disease of native coronary artery without angina pectoris; Z95.5 Presence of coronary angioplasty implant and graft; I10 Essential (primary) hypertension; E11.65 Type 2 diabetes mellitus with hyperglycemia; Z20.828 Contact with and (suspected) exposure to other viral communicable diseases; Z79.4 Long term (current) use of insulin; E78.2 Mixed hyperlipidemia; K21.9 Gastro-esophageal reflux disease without esophagitis; E66.9 Obesity, unspecified; Z68.37 Body mass index [BMI] 37.0-37.9, adult; F17.210 Nicotine dependence, cigarettes, uncomplicated; F17.290 Nicotine dependence, other tobacco product, uncomplicated
CPT/HCPCS: 96365; 96361; 93005 ×2; 93306; 85025; 80048 ×2; 36415; 83721; 83735 ×2; 82550 ×2; 85610; 80061; 82947 ×4; 80076; 85347 ×2; 84443; 83036; 84484 ×3; 82553 ×2; 84439; 83880; 71045; 92928; 93454; 96375; 96372; 99285; U0003; C1893; C1760; C1725; J2250 ×2; J1650 ×2; J0583; J2405; J1170; J1644; J2270; J3010; J3475; J7030; J7040

== ENCOUNTER 2020-11-02 01:29 | Inpatient (IN) | payer OTHER, SELFPAY ==
[2020-11-02 02:03] LABS: Protime INR 0.99
[2020-11-02 02:04] LABS: Absolute Lymphocytes (CBC) 2.6 K/uL (0.7-4.9); Basophils % 1.7 % (0-1.3); Hematocrit 41.2 % (39.6-49.0); MPV 9.2 fL (7.6-11.3); RBC Red Blood Cell Count 4.82 M/uL (4.33-5.43)
[2020-11-02] MEDS ORDERED: ASPIRIN 81 MG CHEWABLE TABLET ONE (02:11)
[2020-11-02] MEDS ORDERED: NITROGLYCERIN 0.4 MG/TAB SL ONE (02:12)
[2020-11-02 02:27] LABS: ALT/SGPT 107 U/L (12-78); Alkaline Phosphatase 81 U/L (45-117); BUN Blood Urea Nitrogen 17 mg/dL (7-18); Bicarbonate 29 mmol/L (21-32); Bilirubin Direct < 0.1 mg/dL (0-0.2); Bilirubin Total 0.2 mg/dL (0.2-1.0); Glucose Level 217 mg/dL (74-106); NT PRO-BNP 152 pg/mL (<125); Protein, Total 7.4 g/dL (6.4-8.2); Sodium Level 141 mmol/L (136-145); Troponin (Emerg Dept Use Only) 0.05 ng/mL (0.0-0.045)
[2020-11-02 02:28] LABS: AST/SGOT 57 U/L (15-37); Magnesium 1.4 mg/dL (1.8-2.4); Potassium 3.8 mmol/L (3.5-5.1)
--- NOTE | 2020-11-02 02:40 | EDPHYS ---
Physician Documentation [facility] Name: Mat Black Age: 35 yrs Sex: Male : 1985 Arrival Date: 11/02/2020 Time: 01:30 Bed 4 Private MD: ED Physician Mahesh Soria HPI: 11/02 01:46 This 35 yrs old Male presents to ER via Unassigned with complaints of Chest jr8 Pain > 30 y/o, High Blood Pressure. 01:46 The patient or guardian reports chest pain that is located primarily in the substernal jr8 area. The pain does not radiate. Associated signs and symptoms: The patient has no apparent associated signs or symptoms. The chest pain is described as a pressure. Duration: The patient or guardian reports a single episode, that is still ongoing. Modifying factors: The symptoms are alleviated by nothing. the symptoms are aggravated by nothing. Severity of pain: At its worst the pain was moderate in the emergency department the pain is unchanged. The patient has experienced similar episodes in the past, a few times. The patient has not recently seen a physician. This is a 35-year-old male that presented to the emergency room with sudden onset of chest pressure that began at midnight tonight while trying to fall asleep. Patient has extensive cardiac history including 2 stents in the past. Last stent was this past January. Patient stated that he feels like this pressure is the same that he has had in the past when he had to have his last 2 stents. Historical: - Home Meds: 01:52 carvedilol Oral [Active]; Metformin Oral [Active]; rosuvastatin 5 mg Oral tab [Active]; wg atorvastatin Oral [Active]; - PMHx: 01:52 Diabetes - IDDM; Hyperlipidemia; Hypertension; wg - Immunization history:: Adult Immunizations Client reports receiving the 2nd dose of the Covid vaccine. - Social history:: Smoking status: Patient denies any tobacco usage or history of. - Code Status:: Full code. ROS: 01:46 Eyes: Negative for injury, pain, redness, and discharge, ENT: Negative for injury, jr8 pain, and discharge, Neck: Negative for injury, pain, and swelling, Respiratory: Negative for shortness of breath, cough, wheezing, and pleuritic chest pain, Abdomen/GI: Negative for abdominal pain, nausea, vomiting, diarrhea, and constipation, Back: Negative for injury and pain, MS/Extremity: Negative for injury and deformity, Skin: Negative for injury, rash, and discoloration, Neuro: Negative for headache, weakness, numbness, tingling, and seizure. :46 Cardiovascular: Positive for chest pain, Negative for edema, orthopnea, palpitations, paroxysmal nocturnal dyspnea. Exam: :46 Constitutional: This is a well developed, well nourished patient who is awake, alert, jr8 and in no acute distress. Neck: Trachea midline, no thyromegaly or masses palpated, and no cervical lymphadenopathy. Supple, full range of motion without nuchal rigidity, or vertebral point tenderness. No Meningismus. Cardiovascular: Regular rate and rhythm with a normal S1 and S2. No gallops, murmurs, or rubs. Normal PMI, no JVD. No pulse deficits. Respiratory: Lungs have equal breath sounds bilaterally, clear to auscultation and percussion. No rales, rhonchi or wheezes noted. No increased work of breathing, no retractions or nasal flaring. Abdomen/GI: Soft, non-tender, with normal bowel sounds. No distension or tympany. No guarding or rebound. No evidence of tenderness throughout. Skin: Warm, dry with normal turgor. Normal color with no rashes, no lesions, and no evidence of cellulitis. MS/ Extremity: Pulses equal, no cyanosis. Neurovascular intact. Full, normal range of motion. Neuro: Awake and alert, GCS 15, oriented to person, place, time, and situation. Cranial nerves II-XII grossly intact. Motor strength 5/5 in all extremities. Sensory grossly intact. :46 ECG was reviewed by the Attending Physician. Vital Signs: 01:30 BP 156 / 109; Pulse 82; Resp 18; Temp 98.4; Pulse Ox 100% on R/A; Weight 119 kg; Height wg 5 ft. 10 in. (177.80 cm); Pain 4/10; 01:59 BP 158 / 105; Pulse 78; Resp 18; Pulse Ox 100% on R/A; Pain 3/10; wg 02:20 BP 131 / 86; Pulse 77; Resp 18; Pulse Ox 100% on R/A; Pain 3/10; wg 02:53 BP 118 / 76; Pulse 86; Resp 18; Pulse Ox 99% on R/A; Pain 1/10; wg 03:09 BP 110 / 73; Pulse 82; Resp 18; Pulse Ox 100% on R/A; Pain 0/10; wg 01:30 Body Mass Index 37.64 (119.00 kg, 177.80 cm) MDM: 01:33 Patient medically screened. [facility] 02:31 Data reviewed: vital signs, nurses notes, lab test result(s), EKG, radiologic studies, [facility] plain films. Data interpreted: Pulse oximetry: on room air is 100 %. Interpretation: normal. Counseling: I had a detailed discussion with the patient and/or guardian regarding: the historical points, exam findings, and any diagnostic results supporting the discharge/admit diagnosis, lab results, radiology results, the need for further work-up and treatment in the hospital. 04:38 ED course: Patient chest pain-free at the time of my evaluation.. rn 11/02 01:34 Order name: Basic Metabolic Panel [facility] 11/02 01:34 Order name: CBC with Diff [facility] 11/02 01:34 Order name: LFT's [facility] 11/02 01:34 Order name: Magnesium; Complete Time: 02:30 [facility] 11/02 01:34 Order name: NT PRO-BNP; Complete Time: 02:30 [facility] 11/02 01:34 Order name: PT-INR; Complete Time: 02:05 [facility] 11/02 01:34 Order name: Troponin (emerg Dept Use Only); Complete Time: 02:30 [facility] 11/02 01:34 Order name: Basic Metabolic Panel; Complete Time: 02:30 [facility] 11/02 01:34 Order name: CBC with Automated Diff; Complete Time: 02:05 [facility] 11/02 01:34 Order name: Liver (Hepatic) Function; Complete Time: 02:30 [facility] 11/02 05:57 Order name: Hemoglobin A1c; Complete Time: 06:25 [facility] 11/02 06:24 Order name: Troponin I; Complete Time: 21:48 [facility] 11/02 06:24 Order name: Lipid Profile; Complete Time: 21:48 [facility] 11/02 06:24 Order name: T4 Free; Complete Time: 21:48 [facility] 11/02 01:34 Order name: XRAY Chest (1 view); Complete Time: 21:48 jr8 11/02 01:34 Order name: EKG; Complete Time: 01:34 jr8 11/02 01:34 Order name: Cardiac monitoring; Complete Time: 02:02 jr8 11/02 01:34 Order name: EKG - Nurse/Tech; Complete Time: 02:02 jr8 11/02 01:34 Order name: IV Saline Lock; Complete Time: 02:02 jr8 11/02 01:34 Order name: Labs collected and sent; Complete Time: 02:02 jr8 11/02 02:45 Order name: CONS Physician Consult [facility] 11/02 06:24 Order name: Thyroid Stimulating Hormone; Complete Time: 21:48 [facility] 11/02 06:37 Order name: LDL, Direct; Complete Time: 21:48 [facility] 11/02 08:34 Order name: Glucose, Ancillary Testing; Complete Time: 21:48 [facility] 11/02 08:34 Order name: Glucose, Ancillary Testing; Complete Time: 21:48 [facility] 11/02 10:06 Order name: Troponin I; Complete Time: 21:48 [facility] 11/02 01:34 Order name: O2 Per Protocol; Complete Time: 02:02 jr8 11/02 01:34 Order name: O2 Sat Monitoring; Complete Time: 02:02 8 EC:46 Rate is 77 beats/min. Rhythm is regular, Sinus Rhythm. QRS [place] is Normal. PA interval jr8 is normal at 156 msec. QRS interval is normal at 88 msec. QT interval is normal at 402 msec. No Q waves. T waves are Inverted in leads III, aVF. No ST changes noted. Clinical impression: NSR w/ Non-specific ST/T Changes. Interpreted by me. Reviewed by me. Administered Medications: 01:45 Drug: Aspirin Chewable Tablet 243 mg Route: PO; wg 02:01 Follow up: Response: No adverse reaction wg 02:54 Follow up: Response: No adverse reaction wg 01:45 Drug: Nitroglycerin 0.4 mg Route: Sublingual; wg 02:00 Follow up: Response: No adverse reaction; Pain is decreased wg 02:54 Follow up: Response: No adverse reaction; Pain is decreased wg 02:34 Drug: Magnesium Sulfate 2 grams Route: IVPB; Infused Over: 2 hrs; Site: right ea antecubital; 02:54 Follow up: Response: No adverse reaction wg 03:24 Follow up: IV Status: Completed infusion; IV Intake: 100ml 02:42 Drug: Lovenox (enoxaparin) 1 mg/kg Route: Sub-Q; Site: left lower abdomen; 02:54 Follow up: Response: No adverse reaction Disposition: 04:36 Co-signature as Attending Physician, Mahesh Soria MD I agree with the assessment and rn plan of care. PA/THIRD MATE's history reviewed, patient interviewed, and examined. 04:37 PA/THIRD MATE's history reviewed, patient interviewed, and examined. HPI: 35-year-old male with rn previous AL and 2 stents presents with chest pain that started around midnight. Takes baby aspirin at home. My personal exam of patient reveals: Overweight male, no acute distress, no respiratory distress I agree with assessment and care plan and confirm the diagnosis (es) above. Disposition Summary: 11/02/20 02:40 Hospitalization Ordered Hospitalization Status: Observation [facility] Provider: Charmaine Bolanos Condition: Stable [facility] Problem: new jr8 Symptoms: have improved jr Bed/Room Type: Standard [facility] Location: [facility] ER HOLD(11/02/20 03:52) cg Room Assignment: ERHOLD-(11/02/20 03:52) cg Diagnosis - Subsequent non-ST elevation (NSTEMI) myocardial infarction [facility] Forms: - Medication Reconciliation Form jr8 - SBAR form jr8 Signatures: Dispatcher [employer] Megan Medina RN RN bb Nieto, Roman, MD MD rn Roszak, Josh, PA PA [facility] Blanka Sanchez RN RN cg Antunez, Elena, RN RN ea Gamba, Liam, RN wg Corrections: (The following items were deleted from the chart) 03:52 02:40 Telemetry/MedSurg (observation) jr8 cg 03:52 02:40 jr8 cg
--- NOTE | 2020-11-02 02:40 | ER ---
Nurse's Notes [facility] Name: Mat Black Age: 35 yrs Sex: Male : 1985 Arrival Date: 11/02/2020 Time: 01:30 Bed 4 Private MD: Diagnosis: Subsequent non-ST elevation (NSTEMI) myocardial infarction Presentation: 11/02 01:30 Initial Sepsis Screen: Does the patient meet any 2 criteria? No. Patient's initial wg sepsis screen is negative. Does the patient have a suspected source of infection? No. Patient's initial sepsis screen is negative. Risk Assessment: Do you want to hurt yourself or someone else? Patient reports no desire to harm self or others. Onset of symptoms was November 02, 2020 at 00:00. Care prior to arrival: Medication(s) given: ASA, 81 mg. Transition of care: patient was not received from another setting of care. 01:30 Acuity: LILA 3 01:44 Chief complaint: Patient states: Chest "ache/dull" sensation that started around wg midnight. States occasionally radiates to left shoulder. Has extensive cardiac history with 2 previous MA's and 2 stents. Pt reports random nausea, no relux and was feeling slightly light headed earlier. Pt states he took 81mg of ASA earlier. Denies taking NTG. Denies diaphoresis and SOB. Coronavirus screen: Vaccine status: Patient reports receiving the 2nd dose of the covid vaccine. The client reports previous COVID testing was negative. Ebola Screen: Patient negative for fever greater than or equal to 101.5 degrees Fahrenheit, and additional compatible Ebola Virus Disease symptoms Patient denies exposure to infectious person. Patient denies travel to an Ebola-affected area in the 21 days before illness onset. No symptoms or risks identified at this time. 01:44 Method Of Arrival: Ambulatory wg 03:09 Note Pt resting comfortably on stretcher. Pt states pain is pretty much gone. wg Significant other at bedside. Pt requested lights be turned off so he can rest. Triage Assessment: 01:45 General: Appears uncomfortable, Behavior is cooperative, anxious. Pain: Complains of wg pain in chest left shoulder Pain currently is 4 out of 10 on a pain scale. Quality of pain is described as aching, dull, Pain began suddenly, midnight. 01:56 EENT: No deficits noted. Neuro: No deficits noted. Cardiovascular: Reports chest pain, wg lightheadedness, occasional nausea and lightheaded earlier. Rhythm is sinus rhythm. Respiratory: No deficits noted. GI: No deficits noted. : No deficits noted. Derm: No deficits noted. Musculoskeletal: No deficits noted. Historical: - Home Meds: 01:52 carvedilol Oral [Active]; Metformin Oral [Active]; rosuvastatin 5 mg Oral tab [Active]; wg atorvastatin Oral [Active]; - PMHx: 01:52 Diabetes - IDDM; Hyperlipidemia; Hypertension; wg - Immunization history:: Adult Immunizations Client reports receiving the 2nd dose of the Covid vaccine. - Social history:: Smoking status: Patient denies any tobacco usage or history of. - Code Status:: Full code. Screenin:02 Abuse screen: Denies threats or abuse. Nutritional screening: No deficits noted. wr Tuberculosis screening: No symptoms or risk factors identified. Fall Risk None identified. Vital Signs: 01:30 BP 156 / 109; Pulse 82; Resp 18; Temp 98.4; Pulse Ox 100% on R/A; Weight 119 kg; Height wg 5 ft. 10 in. (177.80 cm); Pain 4/10; 01:59 BP 158 / 105; Pulse 78; Resp 18; Pulse Ox 100% on R/A; Pain 3/10; wg 02:20 BP 131 / 86; Pulse 77; Resp 18; Pulse Ox 100% on R/A; Pain 3/10; wg 02:53 BP 118 / 76; Pulse 86; Resp 18; Pulse Ox 99% on R/A; Pain 1/10; wg 03:09 BP 110 / 73; Pulse 82; Resp 18; Pulse Ox 100% on R/A; Pain 0/10; wg 01:30 Body Mass Index 37.64 (119.00 kg, 177.80 cm) wg ED Course: 01:30 Patient arrived in ED. bp1 01:33 Rodrigo Triana PA is PHCP. jr8 01:33 Mahesh Soria MD is Attending Physician. jr8 01:45 Arm band placed on left wrist. wg 01:50 XRAY Chest (1 view) In Process Unspecified. EDMS 01:52 Triage completed. wg 01:53 EKG done, X-ray(s) taken. Inserted saline lock: 20 gauge in right antecubital area, wg using aseptic technique. Patient maintains SpO2 saturation greater than 95% on room air. 02:01 EKG completed in triage. Results shown to MD. wg 02:02 Patient has correct armband on for positive identification. Placed in gown. Bed in low wr position. quality assurance monitor on. 02:33 Charmaine Bolanos MD is Hospitalizing Provider. jr8 04:23 No provider procedures requiring assistance completed. Patient admitted, IV remains in ea place. Administered Medications: 01:45 Drug: Aspirin Chewable Tablet 243 mg Route: PO; wg 02:01 Follow up: Response: No adverse reaction wg 02:54 Follow up: Response: No adverse reaction wg 01:45 Drug: Nitroglycerin 0.4 mg Route: Sublingual; wg 02:00 Follow up: Response: No adverse reaction; Pain is decreased wg 02:54 Follow up: Response: No adverse reaction; Pain is decreased wg 02:34 Drug: Magnesium Sulfate 2 grams Route: IVPB; Infused Over: 2 hrs; Site: right ea antecubital; 02:54 Follow up: Response: No adverse reaction wg 03:24 Follow up: IV Status: Completed infusion; IV Intake: 100ml wg 02:42 Drug: Lovenox (enoxaparin) 1 mg/kg Route: Sub-Q; Site: left lower abdomen; wg 02:54 Follow up: Response: No adverse reaction wg Intake: 03:24 IV: 100ml; Total: 100ml. Outcome: 02:40 Decision to Hospitalize by Provider. jr8 04:24 Admitted to ER Hold. Please see [facility] for further documentation. ea 04:24 Condition: stable 04:24 Instructed on the need for admit. 10:32 Patient left the ED. aa5 Signatures: Dispatcher [employer] EDMS Vandana Cobb RN RN aa5 Rodrigo Triana PA PA jr8 Eden Islas RN RN ea Paniauga, Brittany bp1 Gamba, Liam, RN wg Robinson, Willena Corrections: (The following items were deleted from the chart) 01:59 01:56 General: Appears uncomfortable, Behavior is cooperative, anxious, [facility] 01:59 01:56 Pain: Complains of pain in chest left shoulder Pain currently is 4 out of 10 on a wg pain scale. Quality of pain is described as aching, dull, Pain began suddenly, midnight
[2020-11-02] MEDS ORDERED: Magnesium Sulfate 2gm IVPB 2 G/50 ML BAG IV ONE (02:54)
[2020-11-02] MEDS ORDERED: ENOXAPARIN 60 MG/0.6 ML SQ ONE (03:03)
--- NOTE | 2020-11-02 03:29 | P.HP ---
Certification for Inpatient Patient admitted to: Observation With expected LOS: <2 Midnights Patient will require the following post-hospital care: None Practitioner: I am a practitioner with admitting privileges, knowledge of patient current condition, hospital course, and medical plan of care. Services: Services provided to patient in accordance with Admission requirements found in Title 42 Section 412.3 of the Code of Federal Regulations Patient History Date of Service: 11/02/20 Reason for admission: chest pain History of Present Illness: Mr. Black is a 35 yo M with CAD s/p 2 stents, HTN, T2DM, HLD who presents with 8/10 constant squeezing nonradiating sternal chest pain beginning at midnight while at rest. Reports lightheadedness and dizziness. Denies nausea, vomiting, vision changes. Last saw his photo colorer in August 2020 and no abnormal findings at that time. Trop 0.05. Allergies No Known Allergies Allergy (Verified 05/08/19 14:44) Home Medications: Insulin Aspart [Novolog Flexpen] 25 units SQ TID 02/16/20 Insulin Glargine,Hum.rec.anlog [Basaglar Kwikpen U-100] 50 mg SQ BEDTIME 02/16/20 Metformin HCl 1,000 mg PO BID 02/16/20 gemfibroziL [Lopid*] 600 mg PO BID 02/16/20 Atorvastatin Calcium [Lipitor] 80 mg PO DAILY #30 tablet 02/17/20 Valsartan [Diovan*] 40 mg PO DAILY #30 tab 02/17/20 carvediloL [Coreg*] 25 mg PO BID 6AM 6PM #60 tab 02/17/20 Clopidogrel Bisulfate [Plavix*] 75 mg PO BEDTIME 04/18/20 - Past Medical/Surgical History Diabetic: Yes -: Diabetes mellitus type 2 insulin-dependent -: Morbid obesity -: Mixed hyperlipidemia -: CAD with prior stent -: Obesity -: History pancreatitis -: Tobacco abuse -: Left ankle Sx and Right Knee Psychosocial/ Personal History: Patient is - Family History Father -: Heart disease - Social History Smoking Status: Current some day smoker Alcohol use: Yes CD- Drugs: No Caffeine use: Yes Place of Residence: Home Review of Systems 10-point ROS is otherwise unremarkable Cardiovascular: Chest Pain, Light Headedness Physical Examination - Physical Exam General: Alert, In no apparent distress HEENT: Atraumatic, PERRLA, Mucous membr. moist/pink, EOMI, Sclerae nonicteric Neck: Supple, 2+ carotid pulse no bruit, No LAD, Without JVD or thyroid abnormality Respiratory: Clear to auscultation bilaterally, Normal air movement Cardiovascular: Regular rate/rhythm, Normal S1 S2 Gastrointestinal: Normal bowel sounds, No tenderness Musculoskeletal: No tenderness Integumentary: No rashes Neurological: Normal gait, Normal speech, Normal strength at 5/5 x4 extr, Normal tone, Normal affect Lymphatics: No axilla or inguinal lymphadenopathy - Studies Laboratory Data (last 24 hrs) 11/02/20 01:46: PT 11.4, INR 0.99 11/02/20 01:46: WBC 6.30, Hgb 14.0, Hct 41.2, Plt Count 160 11/02/20 01:46: Sodium 141, Potassium 3.8, BUN 17, Creatinine 1.35 H, Glucose 217 H, Magnesium 1.4 L* D, Total Bilirubin 0.2, AST 57 H, ALT 107 H, Alkaline Phosphatase 81 Assessment and Plan - Problems (Diagnosis) (1) HTN (hypertension) Current Visit: Yes Status: Chronic Qualifiers: Hypertension type: primary hypertension Qualified Code(s): I10 - Essential (primary) hypertension (2) CAD (coronary artery disease) Current Visit: Yes Status: Chronic Qualifiers: Coronary Disease-Associated Artery/Lesion type: [place] artery [place] vs. 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 use Diabetes mellitus complication status: with kidney complications Chronic kidney disease stage: stage 2 (mild) - Plan cardiology consulted, on telemetry trend troponins, repeat EKG daily ASA, BB, statin lipid, thyroid and A1c levels pending PRN morphine and NTG full dose lovenox q 12hr sliding scale insulin and accuchecks reconcile and continue home medications Discharge Plan: Home Plan to discharge in: 24 Hours - Advance Directives Does patient have a Living Will: No Does patient have a Durable POA for Healthcare: No - Code Status/Comfort Care Code Status Assessed: Yes (full code ) Critical Care: No Time Spent Managing Pts Care (In Minutes): 70
[2020-11-02 04:06] VITALS: BMI 36.3
[2020-11-02] MEDS ORDERED: NITROGLYCERIN 0.4 MG/TAB SL PRN (04:49)
[2020-11-02] MEDS ORDERED: ONDANSETRON 4 MG/2 ML VIAL IV PRN (04:49)
[2020-11-02] MEDS ORDERED: MORPHINE 2 MG/ML SYR IV PRN (04:49)
[2020-11-02] MEDS ORDERED: ACETAMINOPHEN 500 MG TAB PO PRN (04:49)
[2020-11-02 05:27] VITALS: O2SAT 100
[2020-11-02] MEDS ORDERED: METOPROLOL TAR 25 MG TAB PO SCH (06:00)
[2020-11-02 06:20] LABS: HDL Cholesterol 28 mg/dL (40-60)
[2020-11-02 06:24] LABS: Troponin I 0.51 ng/mL (0.0-0.045)
[2020-11-02 06:36] LABS: LDL, Direct 62 mg/dL (100-129)
[2020-11-02] MEDS ORDERED: METOPROLOL TAR 25 MG TAB ONE (07:13)
[2020-11-02] MEDS ORDERED: INSULIN -REGULAR HUMAN 50 UNIT/0.5 ML ML SQ SCH (07:30)
--- NOTE | 2020-11-02 07:31 | RAD REPORT ---
EXAM DESCRIPTION: Cassy Single View11/02/2020 1:50 am CLINICAL HISTORY: Chest pain COMPARISON: 2019 FINDINGS: Left base is hazy probably secondary to overlying soft tissue. The lungs appear clear of acute infiltrate. The heart is normal size IMPRESSION: No acute abnormalities displayed. If patient's symptoms persist PA and lateral chest series would be recommended
[2020-11-02 08:44] VITALS: BP 115/79
[2020-11-02] MEDS ORDERED: ASPIRIN EC 81 MG TAB PO ONE (08:53)
[2020-11-02] MEDS ORDERED: INSULIN -REGULAR HUMAN 50 UNIT/0.5 ML ML ONE (08:54)
[2020-11-02] MEDS ORDERED: ASPIRIN EC 81 MG TAB PO SCH (09:00)
[2020-11-02 10:45] VITALS: TEMP 98.4
--- NOTE | 2020-11-02 11:27 | EKG ---
Test Date: 2020-11-02 Test Time: 01:36:23 Db2 Dba: [facility] MEASUREMENT RESULTS: Intervals: Rate: 77 IL: 156 QRSD: 88 QT: 356 QTc: 402 [place]: P: 38 IL: 156 QRS: 12 T: -9 INTERPRETIVE STATEMENTS: Normal sinus rhythm Normal ECG Compared to ECG 04/18/2020 14:28:51 No significant changes Electronically Signed On 11-02-20 11:26:21 CDT by Zane Sanchez
[2020-11-02] MEDS ORDERED: Enoxaparin 120 MG/0.8 ML SYR SQ SCH (15:00)
--- NOTE | 2020-11-02 18:32 | P.DS ---
Admission Date: 11/02/20 Discharge Date: 11/02/20 Disposition: AMA-LEFT AGAINST MEDICAL ADVIC Reason for Admission: chest pain - Problems (1) Elevated troponin Status: Acute (2) Chest pain Status: Acute Qualifiers: Chest pain type: unspecified Qualified Code(s): R07.9 - Chest pain, unspecified (3) CAD (coronary artery disease) Status: Chronic Qualifiers: Coronary Disease-Associated Artery/Lesion type: unspecified vessel or lesion type [place] vs. 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 Symptoms associated with lightheadedness and dizziness. 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 His Trop was 0.05, chest x-ray unremarkable, EKG showing normal sinus rhythm, no ischemic changes. Patient placed under observation for further management. Hospital Course: Patient placed under observation. Troponin trended to 1.78. Cardiology was consulted to see patient. Patient was in ED hold and would not wait to be seen by Dr. Sanchez. He signed out against medical advice before I could see him. Vital Signs/Physical Exam: Temp Pulse Resp BP Pulse Ox 98.4 F 80 18 115/79 99 11/02/20 01:30 11/02/20 08:00 11/02/20 03:09 11/02/20 08:00 11/02/20 08:00 Laboratory Data at Discharge: WBC 6.30 K/uL (4.3-10.9) 11/02/20 01:46 Hgb 14.0 g/dL (13.6-17.9) 11/02/20 01:46 Hct 41.2 % (39.6-49.0) 11/02/20 01:46 Plt Count 160 K/uL (152-406) 11/02/20 01:46 PT 11.4 SECONDS (9.5-12.5) 11/02/20 01:46 INR 0.99 11/02/20 01:46 Sodium 141 mmol/L (136-145) 11/02/20 01:46 Potassium 3.8 mmol/L (3.5-5.1) 11/02/20 01:46 BUN 17 mg/dL (7-18) 11/02/20 01:46 Creatinine 1.35 mg/dL (0.55-1.3) H 11/02/20 01:46 Glucose 217 mg/dL (74-106) H 11/02/20 01:46 Magnesium 1.4 mg/dL (1.8-2.4) L* D 11/02/20 01:46 Total Bilirubin 0.2 mg/dL (0.2-1.0) 11/02/20 01:46 AST 57 U/L (15-37) H 11/02/20 01:46 ALT 107 U/L (12-78) H 11/02/20 01:46 Alkaline Phosphatase 81 U/L (45-117) 11/02/20 01:46 Troponin I 1.78 ng/mL (0.0-0.045) H* D 11/02/20 09:35 Triglycerides 996 mg/dL (<150) H 11/02/20 05:18 Cholesterol 131 mg/dL (<200) 11/02/20 05:18 LDL Cholesterol Direct 62 mg/dL (100-129) L 11/02/20 05:18 HDL Cholesterol 28 mg/dL (40-60) L 11/02/20 05:18 Cholesterol/HDL Ratio 4.68 11/02/20 05:18 Home Medications: Insulin Aspart [Novolog Flexpen] 25 units SQ TID 02/16/20 Insulin Glargine,Hum.rec.anlog [Basaglar Kwikpen U-100] 50 mg SQ BEDTIME 02/16/20 Metformin HCl 1,000 mg PO BID 02/16/20 gemfibroziL [Lopid*] 600 mg PO BID 02/16/20 Atorvastatin Calcium [Lipitor] 80 mg PO DAILY #30 tablet 02/17/20 Valsartan [Diovan*] 40 mg PO DAILY #30 tab 02/17/20 carvediloL [Coreg*] 25 mg PO BID 6AM 6PM #60 tab 02/17/20 Clopidogrel Bisulfate [Plavix*] 75 mg PO BEDTIME 04/18/20 Followup: Unknown,U [Primary Care Provider] -
[2020-11-02] MEDS ORDERED: ATORVASTATIN 80 MG TAB PO SCH (21:00)
--- NOTE | 2020-11-03 10:48 | CON ---
Date of Consultation: 11/02/2020 Reason For Consultation: Non-STEMI. History Of Present Illness: Mr. Black is a 35-year-old white male. He has had a history of angiopl asty and stent of his RCA, angioplasty of his PDA, diffuse distal vessel disease in the RCA, mild francine quing in the LAD and the circumflex, and this was done recently. I kind of expect him to have some c hest pain from time to time, but at this time he had some chest pain for few hours. Troponin is only 0.05. Magnesium is 1.4, creatinine 1.35. BNP, troponin, and CPKs and MBs are negative. Troponin w as positive at 0.05. The patient was pain free and he wanted to go home. Past Medical History: As stated earlier, but does include obesity, diabetes, hypertension, dyslipide [place]. Allergies: NONE. Review of Systems: Negative. Social History: Negative. Family History: Negative. Medications: Include Lipitor, Plavix, aspirin, insulin, metformin, valsartan, Coreg, and Lopid. Physical Examination: Vital Signs: Stable, afebrile. HEENT: Negative. Neck: Supple with no bruit. Chest: Clear. Cardiac: Normal. Abdomen: Benign. Extremities: Revealed no clubbing, cyanosis, or edema. Diagnostic Studies: EKG showed nonspecific changes. Chest x-ray was negative. Impression And Plan: Mild elevation in troponin secondary to chronic coronary artery disease. His E KG is not showing any acute changes. He wants to be treated medically. I suggested we increase the Coreg. I put him on Imdur 30 mg daily. Gave a prescription for nitroglycerin p.r.n. Continue the r est of the medicine for diabetes, hypertension, and dyslipidemia. He can go home today and I will se e him in the office soon. GYPSY/KHOI Voice ID: [id number] Report ID: [id number]
== END 2020-11-02 10:15 | disposition left against medical advice (07) | DRG 313 ==
LOC: ER 01:29 → ERHOLD 02:46
PROVIDERS: ADMIT Internal Medicine; ATTEND Internal Medicine
DX: R07.9 Chest pain, unspecified (principal); R77.8 Other specified abnormalities of plasma proteins; I25.10 Atherosclerotic heart disease of native coronary artery without angina pectoris; I10 Essential (primary) hypertension; E66.9 Obesity, unspecified; Z68.36 Body mass index [BMI] 36.0-36.9, adult; I12.9 Hypertensive chronic kidney disease with stage 1 through stage 4 chronic kidney disease, or unspecified chronic kidney disease; E11.22 Type 2 diabetes mellitus with diabetic chronic kidney disease; N18.2 Chronic kidney disease, stage 2 (mild); Z79.4 Long term (current) use of insulin; Z95.5 Presence of coronary angioplasty implant and graft; Z53.29 Procedure and treatment not carried out because of patient's decision for other reasons; F17.210 Nicotine dependence, cigarettes, uncomplicated
CPT/HCPCS: 36415; 71045; 80048; 80061; 80076; 82947; 83036; 83735; 83880; 84439; 84443; 84484; 85025; 85610; 93005; 94760; 96365; 96372; 99285; J1650; J3475

== ENCOUNTER 2020-11-03 18:48 | Emergency (ER) | payer SELFPAY ==
--- NOTE | 2020-11-03 20:31 | ER ---
Nurse's Notes [facility] Name: Mat Black Age: 35 yrs Sex: Male : 1985 Arrival Date: 11/03/2020 Time: 18:51 Bed External Waiting Private MD: Bong Keene T Diagnosis: Presentation: 11/03 18:54 Chief complaint: Patient states: off and on all day today it was hurting. i was here tw2 the other day. they gave me nitro \T\ isosorbide the other day. i took nitro 20 minutes ago and it didn't help. Coronavirus screen: At this time, the client does not indicate any symptoms associated with coronavirus-19. Ebola Screen: Patient denies travel to an Ebola-affected area in the 21 days before illness onset. 18:54 Method Of Arrival: Ambulatory tw2 18:57 Chief complaint: Patient states: nauseous. Initial Sepsis Screen: Does the patient meet tw2 any 2 criteria? No. Patient's initial sepsis screen is negative. Does the patient have a suspected source of infection? No. Patient's initial sepsis screen is negative. Risk Assessment: Do you want to hurt yourself or someone else? Patient reports no desire to harm self or others. Onset of symptoms was November 03, 2020. 18:57 Acuity: LILA 2 tw2 Triage Assessment: 18:58 General: Appears uncomfortable, Behavior is cooperative, appropriate for age. Pain: tw2 Complains of pain in chest. Cardiovascular: Reports chest pain, diaphoresis. Historical: - Allergies: 18:55 No Known Allergies; tw2 - Home Meds: 18:55 carvedilol Oral [Active]; atorvastatin Oral [Active]; Metformin Oral [Active]; tw2 Isosorbide Mononitrate Oral [Active]; nitroglycerin 0.3 mg SL subl 1 tab every 5 minutes [Active]; - PMHx: 18:55 Diabetes - IDDM; Hyperlipidemia; Hypertension; heart attacks; tw2 - PSHx: 18:55 cardiac stents; tw2 - Immunization history:: Adult Immunizations Client reports receiving the 2nd dose of the Covid vaccine. - Social history:: Smoking status: . Vital Signs: 18:57 BP 117 / 79; Pulse 87; Resp 17; Temp 97.6(TE); Pulse Ox 100% on R/A; Weight 122.47 kg tw2 (R); Height 5 ft. 11 in. (180.34 cm); Pain 8/10; 18:57 Body Mass Index 37.66 (122.47 kg, 180.34 cm) tw2 ED Course: 18:51 Patient arrived in ED. am2 18:51 Bong Keene MD is Private Physician. am2 18:57 Arm band placed on. tw2 18:58 Triage completed. tw2 19:08 EKG completed in triage. Results shown to MD. tw2 Administered Medications: No medications were administered Outcome: 20:31 Patient left the ED. em Signatures: Dru Moser RN RN em Sandi Dave RN RN tw2 Damari Olson am2
[2020-11-03 20:35] VITALS: BP 117/79; TEMP 97.6; O2SAT 100
== END 2020-11-03 20:31 | disposition left against medical advice (07) ==
LOC: ER 18:48
DX: R07.9 Chest pain, unspecified (principal); Z53.21 Procedure and treatment not carried out due to patient leaving prior to being seen by health care provider; I10 Essential (primary) hypertension; E11.9 Type 2 diabetes mellitus without complications; E78.5 Hyperlipidemia, unspecified; I25.2 Old myocardial infarction; Z95.5 Presence of coronary angioplasty implant and graft
CPT/HCPCS: 93005; 99281

== ENCOUNTER 2020-11-05 17:30 | Inpatient (IN) | payer SELFPAY ==
[2020-11-05 18:17] LABS: Protime INR 1.09
[2020-11-05] MEDS ORDERED: MORPHINE 4 MG/ML SYR ONE ×2 (18:17→18:40)
[2020-11-05] MEDS ORDERED: ONDANSETRON 4 MG/2 ML VIAL ONE (18:18)
[2020-11-05 18:20] LABS: Absolute Lymphocytes (CBC) 2.1 K/uL (0.7-4.9); Basophils % 0.6 % (0-1.3); Hematocrit 39.1 % (39.6-49.0); Lymphocytes % 30.9 % (15.3-44.8); MPV 9.4 fL (7.6-11.3); RBC Red Blood Cell Count 4.58 M/uL (4.33-5.43)
[2020-11-05 18:22] LABS: ALT/SGPT 85 U/L (12-78); AST/SGOT 46 U/L (15-37); Albumin 3.8 g/dL (3.4-5.0); Alkaline Phosphatase 60 U/L (45-117); BUN Blood Urea Nitrogen 16 mg/dL (7-18); Bicarbonate 25 mmol/L (21-32); Bilirubin Direct < 0.1 mg/dL (0-0.2); Bilirubin Total 0.3 mg/dL (0.2-1.0); Glucose Level 217 mg/dL (74-106); Magnesium 1.7 mg/dL (1.8-2.4); NT PRO-BNP 218 pg/mL (<125); Potassium 4.2 mmol/L (3.5-5.1); Protein, Total 7.1 g/dL (6.4-8.2); Sodium Level 138 mmol/L (136-145); Troponin (Emerg Dept Use Only) 0.26 ng/mL (0.0-0.045)
--- NOTE | 2020-11-05 18:25 | RAD REPORT ---
EXAM DESCRIPTION: RAD - Chest Single View - 11/05/2020 6:18 pm CLINICAL HISTORY: CHEST PAIN COMPARISON: Chest Single View dated 11/02/2020; Chest Single View dated 02/16/2020; Chest Single View dated 03/25/2018 FINDINGS: Lines: None. Lungs: No evidence of edema or pneumonia. Pleural: No significant pleural effusions or pneumothorax. Cardiac: The heart size is within normal limits. Bones: No acute fractures. Other: IMPRESSION: No acute cardiopulmonary disease.
[2020-11-05] MEDS ORDERED: NITROGLYCERIN 0.4 MG/TAB SL ONE (18:30)
--- NOTE | 2020-11-05 18:30 | ER ---
Nurse's Notes [facility] Name: Mat Black Age: 35 yrs Sex: Male : 1985 Arrival Date: 11/05/2020 Time: 17:37 Bed 4 Private MD: Diagnosis: Subsequent non-ST elevation (NSTEMI) myocardial infarction Presentation: 11/05 17:37 Chief complaint: Patient states: Intermittent CP all week. Pain became worse and ss continuous about 1 hour ago. Pt reports he self administered 324 mg ASA today and Nitro SL tablets earlier today. Zofran 4 mg and Toradol 30 mg given IV by EMS en route to ED. Coronavirus screen: Client denies travel out of the [place] in the last 14 days. Ebola Screen: Patient denies exposure to infectious person. Patient denies travel to an Ebola-affected area in the 21 days before illness onset. Initial Sepsis Screen: Does the patient meet any 2 criteria? No. Patient's initial sepsis screen is negative. Does the patient have a suspected source of infection? No. Patient's initial sepsis screen is negative. Risk Assessment: Do you want to hurt yourself or someone else? Patient reports no desire to harm self or others. Onset of symptoms is unknown. 17:37 Method Of Arrival: EMS: [facility] ss 17:37 Acuity: LILA 2 ss 17:44 Care prior to arrival: Medication(s) given: zofran 4 mg, Toradol 30 mg IV initiated. 18 ss GA, in the left antecubital area. 19:58 Note Pt very insistent about getting Dilaudid. I explained I need to speak with the wg provider first. Pt very short and verbally abusive. Pt upset that he needed another covid test when he was tested a couple days ago. Pt insistent that if he goes upstairs that his come with him. 20:02 Note Pt describes chest pain as midsternal squeezing pain. States it is the same as wg it's been but Dilaudid worked better than morphine. 20:[address] Orr of patient's discomfort. Dr. Orr advised that the inpatient wg addmitting provider will see him shortly and will manage his discomfort. Triage Assessment: 18:04 General: Appears uncomfortable, Behavior is cooperative. ch5 Historical: - Allergies: 17:43 No Known Allergies; ss - PMHx: 17:43 Diabetes - IDDM; NSTEMI x 2; Hyperlipidemia; Hypertension; ss - PSHx: 17:43 cardiac stents x 2; ss - Immunization history:: Client reports having NOT received the Covid vaccine. - Social history:: Smoking status: Patient denies any tobacco usage or history of. - Family history:: not pertinent. - Hospitalizations: : The patient was recently seen at [facility]. Screenin:44 Abuse screen: Denies threats or abuse. Denies injuries from another. Nutritional ss screening: No deficits noted. Tuberculosis screening: Never had TB. Assessment: 18:23 General: Appears in no apparent distress. Behavior is calm, cooperative. Pain: Pain hb currently is 8 out of 10 on a pain scale. Neuro: Level of Consciousness is awake, alert, obeys commands, Oriented to person, place, time, situation. Neuro: Reports. Cardiovascular: Reports chest pain, Patient's skin is warm and dry. Rhythm is regular. Respiratory: Respiratory effort is even, unlabored, Respiratory pattern is regular, symmetrical. GI: No signs and/or symptoms were reported involving the gastrointestinal system. : No signs and/or symptoms were reported regarding the genitourinary system. EENT: No signs and/or symptoms were reported regarding the EENT system. Derm: Skin is pink, warm \\T\\ dry. Musculoskeletal: No signs and/or symptoms reported regarding the musculoskeletal system. 23:08 Reassessment: Patient and/or family updated on plan of care and expected duration. Pain ea level reassessed. Patient is alert, oriented x 3, equal unlabored respirations, skin warm/dry/pink. Admitted to second floor, report called to receiving nurse, pt left ED via stretcher per chemical waste management technician, pt tolerating well. Vital Signs: 17:37 BP 142 / 88; Pulse 76; Resp 21; Pulse Ox 100% on R/A; Weight 122.47 kg; Height 5 ft. 11 ss in. (180.34 cm); 18:24 BP 131 / 86; Pulse 80; Resp 15; Pulse Ox 99% on R/A; hb 20:00 BP 132 / 101; Pulse 64; Resp 18; Pulse Ox 99% on R/A; Pain 8/10; wg 17:37 Body Mass Index 37.66 (122.47 kg, 180.34 cm) ED Course: 17:37 Patient arrived in ED. ss 17:43 Mahesh Soria MD is Attending Physician. rn 17:43 Triage completed. ss 17:43 Arm band placed on right wrist. ss 17:44 Patient has correct armband on for positive identification. Bed in low position. Call ss light in reach. Side rails up X 1. secured entrance monitor on. Pulse ox on. NIBP on. 17:44 Maintain EMS IV. Dressing intact. Good blood return noted. Site clean \\T\\ dry. Gauge \\T\\ ss site: 18 gauge in L AC. 17:45 Jonathan Menendez, BRANDON is Primary Nurse. 5 18:08 XRAY Chest (1 view) Sent. 5 18:18 XRAY Chest (1 view) In Process Unspecified. EDMS 18:28 Charmaine Bolanos MD is Hospitalizing Provider. rn 20:18 COVID-19 : Document "Date of Symptom Onset" if Symptomatic. Sent. wg 20:18 CORONAVIRUS Sent. wg 23:07 No provider procedures requiring assistance completed. Patient admitted, IV remains in ea place. Administered Medications: 17:58 Drug: morphine 4 mg Route: IVP; Site: left antecubital; 5 18:19 Follow up: Response: Pain is unchanged, physician notified 5 17:58 Drug: Zofran (Ondansetron) 4 mg Route: IVP; Site: left antecubital; ch5 18:20 Follow up: Response: No adverse reaction 5 18:08 CANCELLED (Took NEUROSCIENTIST): Nitroglycerin 0.4 mg Sublingual once; every five minute if needed ch5 x3 18:18 Drug: morphine 4 mg Route: IVP; Site: left antecubital; ch5 18:53 Drug: Dilaudid (HYDROmorphone) 1 mg Route: IVP; Site: left antecubital; 5 21:37 Follow up: Response: No adverse reaction ea 19:43 Drug: Lovenox (enoxaparin) 1 mg/kg Route: Sub-Q; Site: left lower abdomen; wg 21:37 Follow up: Response: No adverse reaction ea Outcome: 18:29 Decision to Hospitalize by Provider. rn 23:07 Admitted to Med/surg accompanied by tech, via wheelchair, with chart, Report called to ea Receiving nurse on second floor 23:07 Condition: stable 23:07 Instructed on the need for admit, Demonstrated understanding of instructions. 23:09 Patient left the ED. ea Signatures: Dispatcher [employer] EDMahesh Gates MD MD rn Smirch, Shelby, RN RN ss Baxter, Heather, RN RN Eden Islas RN RN ea Heath, Christopher, RN RN [facility] Refugio Contreras RN
--- NOTE | 2020-11-05 18:30 | EDPHYS ---
Physician Documentation [facility] Name: Mat Black Age: 35 yrs Sex: Male : 1985 Arrival Date: 11/05/2020 Time: 17:37 Bed 4 Private MD: ED Physician Mahesh Soria HPI: 11/05 18:01 This 35 yrs old Male presents to ER via EMS with complaints of Chest Pain. rn 18:01 The patient or guardian reports chest pain that is located primarily in the substernal rn area. The pain does not radiate. Associated signs and symptoms: Pertinent positives: diaphoresis, Pertinent negatives: abdominal pain, cough, diaphoresis, lightheadedness, palpitations, shortness of breath, syncope, vomiting. The chest pain is described as a heaviness. Duration: The patient or guardian reports multiple episodes, that are intermittent. Modifying factors: The symptoms are alleviated by nothing. the symptoms are aggravated by nothing. Severity of pain: At its worst the pain was moderate in the emergency department the pain is unchanged. The patient has experienced similar episodes in the past. The patient has been recently seen at the [facility] Emergency Department, The patient has been recently been admitted at [facility]. . 18:05 Patient recently admitted for chest pain. Per medical records patient left AMA before rn being seen by Dr. Damon. At that time troponin had been uptrending. Understanding was that he was going to have heart cath performed. Now returns for persistent pain in his chest, episodes are lasting longer. Current episode is lasting 1 hour. Took three aspirin at home and nitro without any relief.. Historical: - Allergies: 17:43 No Known Allergies; ss - PMHx: 17:43 Diabetes - IDDM; NSTEMI x 2; Hyperlipidemia; Hypertension; ss - PSHx: 17:43 cardiac stents x 2; ss - Immunization history:: Client reports having NOT received the Covid vaccine. - Social history:: Smoking status: Patient denies any tobacco usage or history of. - Family history:: not pertinent. - Hospitalizations: : The patient was recently seen at [facility]. ROS: 18:05 Constitutional: Negative for fever, chills, and weight loss, Eyes: Negative for injury, rn pain, redness, and discharge, Neck: Negative for injury, pain, and swelling, Cardiovascular: Negative for palpitations, and edema, Respiratory: Negative for shortness of breath, cough, wheezing, and pleuritic chest pain, Abdomen/GI: Negative for abdominal pain, nausea, vomiting, diarrhea, and constipation, Back: Negative for injury and pain, MS/Extremity: Negative for injury and deformity, Skin: Negative for injury, rash, and discoloration, Neuro: Negative for headache, weakness, numbness, tingling, and seizure. 18:05 All other systems are negative. Exam: 18:05 Constitutional: This is a well developed, well nourished patient who is awake, alert, rn appears uncomfortable Head/Face: Normocephalic, atraumatic. Eyes: Periorbital areas with no swelling, redness, or edema. Cardiovascular: Regular rate and rhythm. No pulse deficits. Respiratory: Mild tachypnea. Speaking full sentences. Abdomen/GI: Soft, non-tender Skin: Warm, dry, no cyanosis MS/ Extremity: Pulses equal, no cyanosis. Neuro: Awake and alert, GCS 15, oriented to person, place, time, and situation. 18:05 ECG was reviewed by the Attending Physician. Vital Signs: 17:37 BP 142 / 88; Pulse 76; Resp 21; Pulse Ox 100% on R/A; Weight 122.47 kg; Height 5 ft. 11 ss in. (180.34 cm); 18:24 BP 131 / 86; Pulse 80; Resp 15; Pulse Ox 99% on R/A; hb 20:00 BP 132 / 101; Pulse 64; Resp 18; Pulse Ox 99% on R/A; Pain 8/10; wg 17:37 Body Mass Index 37.66 (122.47 kg, 180.34 cm) ss MDM: 17:43 Patient medically screened. rn 18:26 Differential diagnosis: acute myocardial infarction, acute pericarditis, coronary rn artery disease pleurisy, pneumothorax, stable angina, unstable angina, NSTEMI. 18:26 HEART Score: History: Highly Suspicious (2), ECG: Non specific repolarization rn disturbance / LBTB / PM (1), Age: < or = 45 years (0), Risk Factors: > or = 3 Risk factors for atherosclerotic disease (2), [Hypercholesterolemia] [Hypertension] [+ Family HX] [Obesity] Troponin: > 1 and < 3 x normal limit (1), Total Score = 6. JAZMYNE Risk Score: 1 - Three or more CAD risk factors, 1- Known CAD, 1 - ASA use in past 7 days, 1 - Recent [<24hrs] Severe Angina, 1 - Elevated Cardiac Markers, TOTAL SCORE = 5. Data reviewed: vital signs, nurses notes, lab test result(s), EKG, radiologic studies, plain films, and as a result, I will admit patient. Data interpreted: environmental monitoring technician: rate is 82 beats/min, rhythm is normal sinus rhythm, regular, with no ectopy, Interpretation: normal rate, normal rhythm, Pulse oximetry: on room air is 99 %. Interpretation: normal. Test interpretation: by ED physician or midlevel provider: ECG, plain radiologic studies, X-ray negative for pneumothorax or acute infiltrate. Counseling: I had a detailed discussion with the patient and/or guardian regarding: the historical points, exam findings, and any diagnostic results supporting the discharge/admit diagnosis, lab results, radiology results, the need for further work-up and treatment in the hospital. Response to treatment: the patient's symptoms have mildly improved after treatment, and as a result, I will admit patient. Admission orders: after a detailed discussion of the patient's condition and case, the admit orders are written by me. ED course: Patient with elevated troponin, lower than the 1.7 from a few days ago. Chest pain lasting longer and is due for heart cath. No STEMI on ECG. Will admit and anticoagulate for cardiology to see. Patient states will stay at this time as opposed to leaving AMA as he did last time. 11/05 17:38 Order name: Basic Metabolic Panel; Complete Time: 18:25 11/05 17:38 Order name: CBC with Diff 11/05 17:38 Order name: LFT's; Complete Time: 18:25 11/05 17:38 Order name: Magnesium; Complete Time: 18:25 11/05 17:38 Order name: NT PRO-BNP; Complete Time: 18:25 11/05 17:38 Order name: PT-INR 11/05 17:38 Order name: Troponin (emerg Dept Use Only); Complete Time: 18:25 11/05 17:38 Order name: XRAY Chest (1 view); Complete Time: 18:36 11 19:16 Order name: COVID-19 : Document "Date of Symptom Onset" if Symptomatic. rn 11/05 20:03 Order name: CORONAVIRUS EDMI 11/05 21:11 Order name: SARS-COV-2 RT PCR [facility] 11/05 17:38 Order name: EKG; Complete Time: 17:39 11/05 17:38 Order name: Cardiac monitoring; Complete Time: 17:41 11/05 17:38 Order name: EKG - Nurse/Tech; Complete Time: 17:41 11/05 17:38 Order name: IV Saline Lock; Complete Time: 17:41 eb 11/05 17:38 Order name: Labs collected and sent; Complete Time: 17:41 11/05 17:38 Order name: O2 Per Protocol; Complete Time: 17:41 11/05 17:38 Order name: O2 Sat Monitoring; Complete Time: 17:41 11/05 18:51 Order name: CONS Physician Consult EDMI EC:05 Rate is 76 beats/min. Rhythm is regular. QRS [place] is Normal. CA interval is normal. QRS rn interval is normal. QT interval is normal. No Q waves. T waves are Normal. No ST changes noted. Clinical impression: NSR w/ Non-specific ST/T Changes and PVCs. Interpreted by me. Reviewed by me. Administered Medications: 17:58 Drug: morphine 4 mg Route: IVP; Site: left antecubital; ch5 18:19 Follow up: Response: Pain is unchanged, physician notified 5 17:58 Drug: Zofran (Ondansetron) 4 mg Route: IVP; Site: left antecubital; ch5 18:20 Follow up: Response: No adverse reaction ch5 18:08 CANCELLED (Took BELLSTAND ATTENDANT): Nitroglycerin 0.4 mg Sublingual once; every five minute if needed ch5 x3 18:18 Drug: morphine 4 mg Route: IVP; Site: left antecubital; ch5 18:53 Drug: Dilaudid (HYDROmorphone) 1 mg Route: IVP; Site: left antecubital; ch5 21:37 Follow up: Response: No adverse reaction ea 19:43 Drug: Lovenox (enoxaparin) 1 mg/kg Route: Sub-Q; Site: left lower abdomen; wg 21:37 Follow up: Response: No adverse reaction ea Disposition Summary: 11/05/20 18:29 Hospitalization Ordered Hospitalization Status: Inpatient Admission rn Provider: Charmaine Bolanos rn Location: Telemetry/MedSurg (Inpatient) rn Condition: Stable rn Problem: an ongoing problem rn Symptoms: have improved rn Bed/Room Type: Standard rn Room Assignment: 210(11/05/20 21:44) Diagnosis - Subsequent non-ST elevation (NSTEMI) myocardial infarction telephonic rn Instructions: - Discharge Summary Sheet 5 Forms: - Medication Reconciliation Form rn - SBAR form [facility] Signatures: Dispatcher [employer] EDHarmony Chavez RN Mahesh Can MD MD rn Smirch, Shelby, RN RN Jerrica Duarte Christopher, RN RN [facility] Refugio Contreras RN wg Antunez, Elena RN ea Corrections: (The following items were deleted from the chart) 18:08 18:05 Nitroglycerin 0.4 mg Sublingual once; every five minute if needed x3 ordered. rn 5 21:44 18:29 rn mw
--- NOTE | 2020-11-05 19:00 | P.HP ---
Certification for Inpatient Patient admitted to: Inpatient With expected LOS: >2 Midnights Patient will require the following post-hospital care: None Practitioner: I am a practitioner with admitting privileges, knowledge of patient current condition, hospital course, and medical plan of care. Services: Services provided to patient in accordance with Admission requirements found in Title 42 Section 412.3 of the Code of Federal Regulations Patient History Date of Service: 11/05/20 Reason for admission: NSTEMI History of Present Illness: Mr. Black is a 35 yo M with CAD, DM, HLD who presents with worsening chest pain. Trop 0.26. He was admitted two days ago for an NSTEMI but left AMA. He is scheduled to have a heart catheterization here on Saturday but says he returned to the hospital for worsening chest pain. Allergies No Known Allergies Allergy (Verified 05/08/19 14:44) Home Medications: Insulin Aspart [Novolog Flexpen] 25 units SQ TID 02/16/20 Insulin Glargine,Hum.rec.anlog [Basaglar Kwikpen U-100] 50 mg SQ BEDTIME 02/16/20 Metformin HCl 1,000 mg PO BID 02/16/20 gemfibroziL [Lopid*] 600 mg PO BID 02/16/20 Atorvastatin Calcium [Lipitor] 80 mg PO DAILY #30 tablet 02/17/20 Valsartan [Diovan*] 40 mg PO DAILY #30 tab 02/17/20 carvediloL [Coreg*] 25 mg PO BID 6AM 6PM #60 tab 02/17/20 Clopidogrel Bisulfate [Plavix*] 75 mg PO BEDTIME 04/18/20 - Past Medical/Surgical History Diabetic: Yes -: Diabetes mellitus type 2 insulin-dependent -: Morbid obesity -: Mixed hyperlipidemia -: CAD with prior stent -: Obesity -: History pancreatitis -: Tobacco abuse -: Left ankle Sx and Right Knee Psychosocial/ Personal History: Patient is - Family History Father -: Heart disease - Social History Alcohol use: Yes CD- Drugs: No Caffeine use: Yes Place of Residence: Home Review of Systems 10-point ROS is otherwise unremarkable Cardiovascular: Chest Pain Physical Examination - Physical Exam General: Alert, In no apparent distress HEENT: Atraumatic, PERRLA, Mucous membr. moist/pink, EOMI, Sclerae nonicteric Neck: Supple, 2+ carotid pulse no bruit, No LAD, Without JVD or thyroid abnormality Respiratory: Clear to auscultation bilaterally, Normal air movement Cardiovascular: Regular rate/rhythm, Normal S1 S2 Gastrointestinal: Normal bowel sounds, No tenderness Musculoskeletal: No tenderness Integumentary: No rashes Neurological: Normal gait, Normal speech, Normal strength at 5/5 x4 extr, Normal tone, Normal affect Lymphatics: No axilla or inguinal lymphadenopathy - Studies Laboratory Data (last 24 hrs) 11/05/20 17:42: PT 12.6 H, INR 1.09 11/05/20 17:42: Sodium 138, Potassium 4.2, BUN 16, Creatinine 1.29, Glucose 217 H, Magnesium 1.7 L, Total Bilirubin 0.3, AST 46 H, ALT 85 H, Alkaline Phosphatase 60 Assessment and Plan - Problems (Diagnosis) (1) Non-STEMI (non-ST elevated myocardial infarction) Onset Date: 03/26/18 Current Visit: No Status: Acute (2) CAD (coronary artery disease) Current Visit: No Status: Chronic Qualifiers: Coronary Disease-Associated Artery/Lesion type: unspecified vessel or lesion type [place] vs. transplanted heart: [place] heart Associated angina: unspecified whether angina present Qualified Code(s): I25.10 - Atherosclerotic heart disease of [place] coronary artery without angina pectoris (3) HTN (hypertension) Current Visit: No Status: Chronic Qualifiers: Hypertension type: primary hypertension Qualified Code(s): I10 - Essential (primary) hypertension (4) Hypertriglyceridemia Onset Date: 03/26/18 Current Visit: No Status: Chronic (5) Type 2 diabetes mellitus Onset Date: 03/26/18 Current Visit: No Status: Chronic Qualifiers: Diabetes mellitus nursing home insulin use: unspecified 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 Diabetes mellitus complication status: with kidney complications Diabetes mellitus complication detail: with chronic kidney disease Chronic kidney disease stage: stage 2 (mild) Qualified Code(s): E11.22 - Type 2 diabetes mellitus with diabetic chronic kidney disease; N18.2 - Chronic kidney disease, stage 2 (mild) - Plan on telemetry, trend troponins, repeat EKG cardiology consulted daily ASA, BB, statin, full dose lovenox q12hr, PRN morphine and NTG reconcile and continue home medications sliding scale insulin and accuchecks Magnesium and potassium replacement Discharge Plan: Home Plan to discharge in: 48 Hours - Advance Directives Does patient have a Living Will: No Does patient have a Durable POA for Healthcare: No - Code Status/Comfort Care Code Status Assessed: Yes (full code ) Critical Care: No Time Spent Managing Pts Care (In Minutes): 70
[2020-11-05] MEDS ORDERED: HYDROMORPHONE HCL 2 MG/ML inj ONE (19:14)
[2020-11-05] MEDS ORDERED: ENOXAPARIN 100 MG/ML SYR SQ ONE (20:06)
[2020-11-05] MEDS ORDERED: ENOXAPARIN 30 MG/0.3 ML SQ ONE (20:06)
[2020-11-05] MEDS ORDERED: INSULIN -REGULAR HUMAN 50 UNIT/0.5 ML ML SQ SCH (21:48)
[2020-11-05] MEDS ORDERED: ACETAMINOPHEN 500 MG TAB PO PRN (21:48)
[2020-11-05] MEDS ORDERED: NITROGLYCERIN 0.4 MG/TAB SL PRN (21:48)
[2020-11-05] MEDS ORDERED: ATORVASTATIN 40 MG TAB PO SCH (21:48)
[2020-11-05] MEDS: MORPHINE 2 MG/ML SYR IV PRN (21:54)
[2020-11-05] MEDS ORDERED: MORPHINE 2 MG/ML SYR ONE (22:01)
[2020-11-05 23:58] VITALS: BMI 36.3
[2020-11-06] MEDS: MORPHINE 2 MG/ML SYR IV PRN (03:05)
[2020-11-06 03:08] LABS: Absolute Lymphocytes (CBC) 2.7 K/uL (0.7-4.9); Basophils % 0.5 % (0-1.3); Hematocrit 38.4 % (39.6-49.0); Lymphocytes % 42.4 % (15.3-44.8); MPV 9.2 fL (7.6-11.3); RBC Red Blood Cell Count 4.51 M/uL (4.33-5.43)
[2020-11-06 03:32] LABS: ALT/SGPT 84 U/L (12-78); AST/SGOT 91 U/L (15-37); Albumin 3.5 g/dL (3.4-5.0); Alkaline Phosphatase 55 U/L (45-117); BUN Blood Urea Nitrogen 20 mg/dL (7-18); Bicarbonate 28 mmol/L (21-32); Bilirubin Total 0.3 mg/dL (0.2-1.0); Glucose Level 221 mg/dL (74-106); HDL Cholesterol 29 mg/dL (40-60); Magnesium 1.7 mg/dL (1.8-2.4); Phosphorus 4.2 mg/dL (2.5-4.9); Potassium 4.4 mmol/L (3.5-5.1); Protein, Total 6.7 g/dL (6.4-8.2); Sodium Level 137 mmol/L (136-145)
[2020-11-06 03:46] LABS: LDL, Direct 80 mg/dL (100-129)
[2020-11-06] MEDS: HEPARIN/D5W 25,000 UNIT/500 ML BAG IV SCH (06:00)
[2020-11-06] MEDS: METOPROLOL TAR 25 MG TAB PO SCH ×2 (06:07→16:47)
[2020-11-06 06:11] LABS: Protime INR 1.09
[2020-11-06] MEDS: HYDROMORPHONE HCL 1 MG/ML INJ IV PRN ×5 (07:42→23:10)
[2020-11-06] MEDS: ONDANSETRON 4 MG/2 ML VIAL IV PRN ×2 (07:50→15:28)
[2020-11-06] MEDS ORDERED: MAGNESIUM SULFATE 1 gm IVPB 1 GM/100 ML BAG IV ONE (08:00)
[2020-11-06] MEDS ORDERED: ENOXAPARIN 60 MG/0.6 ML SQ SCH (09:00)
[2020-11-06] MEDS ORDERED: ASPIRIN 81 MG CHEWABLE TABLET PO SCH (09:00)
[2020-11-06] MEDS: gemfibroziL 600 MG TAB PO SCH ×2 (09:36→20:54)
[2020-11-06] MEDS ORDERED: GLUCAGON 1 MG/VIAL IM PRN (10:06)
[2020-11-06] MEDS ORDERED: D50W 25 GM/50 ML SYRINGE IV PRN (10:06)
--- NOTE | 2020-11-06 10:10 | P.PN ---
Subjective Date of Service: 11/06/20 Chief Complaint: NSTEMI Subjective: No new changes Review of Systems 10-point ROS is otherwise unremarkable Cardiovascular: Chest Pain Physical Examination - Vital Signs Temperature: 97.7 F Blood Pressure: 137/96 Pulse: 70 Respirations: 17 Pulse Ox (%): 98 - Physical Exam General: Alert, In no apparent distress HEENT: Atraumatic, PERRLA, EOMI Neck: Supple, JVD not distended Respiratory: Clear to auscultation bilaterally, Normal air movement Cardiovascular: Regular rate/rhythm, Normal S1 S2 Gastrointestinal: Normal bowel sounds, No tenderness Musculoskeletal: No tenderness Integumentary: No rashes Neurological: Normal speech, Normal tone, Normal affect Lymphatics: No axilla or inguinal lymphadenopathy - Studies Laboratory Data (last 24 hrs) 11/05/20 17:42: PT 12.6 H, INR 1.09 11/05/20 17:42: WBC 6.70, Hgb 13.2 L, Hct 39.1 L, Plt Count 181 11/05/20 17:42: Sodium 138, Potassium 4.2, BUN 16, Creatinine 1.29, Glucose 217 H, Magnesium 1.7 L, Total Bilirubin 0.3, AST 46 H, ALT 85 H, Alkaline Phosphatase 60 Assessment & Plan - Problems (Diagnosis) (1) Non-STEMI (non-ST elevated myocardial infarction) Onset Date: 03/26/18 Current Visit: No Status: Acute Plan: most likely will need a cath. Continue monitoring his troponins. dilaudid for chest pain (2) HTN (hypertension) Current Visit: No Status: Chronic Plan: restart his valsartan. will add metoprolol as he improves Qualifiers: Hypertension type: primary hypertension Qualified Code(s): I10 - Essential (primary) hypertension (3) Type 2 diabetes mellitus Onset Date: 03/26/18 Current Visit: No Status: Chronic Plan: start sliding scale insulin. Will hold the metformin as he is likely to get contrast soon. Continue iv fluids. Qualifiers: Diabetes mellitus buttermaker continuous churn insulin use: with buttermaker continuous churn use Diabetes mellitus complication status: with kidney complications Diabetes mellitus complication detail: with chronic kidney disease Chronic kidney disease stage: stage 2 (mild) Qualified Code(s): E11.22 - Type 2 diabetes mellitus with diabetic chronic kidney disease; N18.2 - Chronic kidney disease, stage 2 (mild); Z79.4 - prison (current) use of insulin Discharge Plan: Home Plan to discharge in: Greater than 2 days - Code Status/Comfort Care Code Status Assessed: No Critical Care: No Time Spent Managing Pts Care (In Minutes): 20
[2020-11-06] MEDS: MAGNESIUM OXIDE 400 MG TAB PO SCH ×2 (11:00→20:55)
[2020-11-06] MEDS: NA CHLORIDE 0.9% 1,000 ML IV SCH (11:11)
[2020-11-06] MEDS: INSULIN -REGULAR HUMAN 50 UNIT/0.5 ML ML SQ SCH ×3 (12:27→20:56)
[2020-11-06] MEDS ORDERED: HEPARIN 5000 UNIT/ML 1 ML VIAL IV SCH (16:00)
--- NOTE | 2020-11-06 16:27 | CON ---
Date of Consultation: 11/06/2020 Reason For Consultation: Non-STEMI. History Of Present Illness: This is a 35-year-old male, known history of coronary artery disease, di abetes, dyslipidemia. Presented with chest pain, pressure like, retrosternal. He was hospitalized r ecently and medications were adjusted and then the patient kept having chest pain, so the heart santos terization was scheduled with me tomorrow; however, ended up having this episode and he ruled in for non-ST elevation myocardial infarction. He is chest pain free at the present time. Past Medical History: As outlined above in HPI. Medications: Refer reconciliation sheet for detailed list. Allergies: NO KNOWN DRUG ALLERGIES. Family History: Coronary artery disease on father's side. Social History: Drinks alcohol. Does not smoke or use any drugs. Review of Systems: All systems reviewed and they were negative except mentioned in the HPI. Physical Examination: Vital Signs: Temperature is 97.5, pulse 64, breathing at 18, blood pressure 145/95, saturating 98%. General: Pleasant young male, in no distress. Head and Neck: Pupils are equal, reactive to light. Intact eye movements. No JVD. No cervical lym phadenopathy. Neck is supple. Thyroid is not enlarged. Lungs: Clear to auscultation bilaterally. No rhonchi, rales, or crackles. No accessory muscle use. Heart: Regular rate and rhythm. No extra sounds. Abdomen: Soft, nontender. Bowel sounds positive. No organomegaly. No masses or hernia. No rigidi ty or rebound. Extremities: No edema, clubbing, or cyanosis. Intact pulses. Skin: No rash noted. Neurologic: Alert, awake, oriented x3. No acute focal deficits appreciated. Investigations: Troponin is , creatinine 1.37. Assessment And Recommendations: Non-ST elevation myocardial infarction. Continue IV heparin and ple ase use nitroglycerin patch 1 inch q.8 hours for pain control and aspirin 81 mg daily and keep n.p.o. past midnight for coronary angiogram tomorrow morning. SR/MODL Voice ID: [id number] Report ID: [id number]
[2020-11-07] MEDS: NA CHLORIDE 0.9% 1,000 ML IV SCH (00:27)
[2020-11-07] MEDS: HEPARIN/D5W 25,000 UNIT/500 ML BAG IV SCH (01:29)
[2020-11-07] MEDS: HYDROMORPHONE HCL 1 MG/ML INJ IV PRN ×3 (03:35→13:18)
[2020-11-07 06:08] LABS: Magnesium 1.9 mg/dL (1.8-2.4); Potassium 4.1 mmol/L (3.5-5.1)
[2020-11-07] MEDS: METOPROLOL TAR 25 MG TAB PO SCH (06:08)
[2020-11-07 06:18] LABS: Absolute Lymphocytes (CBC) 1.5 K/uL (0.7-4.9); Basophils % 0.4 % (0-1.3); Hematocrit 39.9 % (39.6-49.0); MPV 9.6 fL (7.6-11.3); RBC Red Blood Cell Count 4.67 M/uL (4.33-5.43)
[2020-11-07] MEDS: INSULIN -REGULAR HUMAN 50 UNIT/0.5 ML ML SQ SCH ×2 (07:30→11:30)
[2020-11-07] MEDS: gemfibroziL 600 MG TAB PO SCH (08:03)
[2020-11-07] MEDS: MAGNESIUM OXIDE 400 MG TAB PO SCH (08:05)
[2020-11-07] MEDS ORDERED: LEVALBUTEROL 0.63 MG/3 ML NEB NEB PRN (08:47)
[2020-11-07] MEDS ORDERED: VALSARTAN 40 MG TAB PO SCH (09:00)
[2020-11-07] MEDS ORDERED: ASPIRIN EC 81 MG TAB PO SCH (09:00)
[2020-11-07] MEDS ORDERED: ATORVASTATIN 80 MG TAB PO SCH (09:00)
[2020-11-07] MEDS ORDERED: LIDOCAINE 1% 20 ML MDV ONE (12:16)
[2020-11-07] MEDS ORDERED: HEPA 1000U/500MLS 2,000 UNIT/1,000 ML BAG IV ONE (12:16)
[2020-11-07 12:22] VITALS: TEMP 98.1
--- NOTE | 2020-11-07 13:36 | P.PN ---
Subjective Date of Service: 11/07/20 Chief Complaint: NSTEMI Subjective: No new changes Review of Systems Cardiovascular: Chest Pain Physical Examination - Vital Signs Temperature: 98.1 F Blood Pressure: 129/74 Pulse: 79 Respirations: 18 Pulse Ox (%): 98 - Physical Exam General: Alert, In no apparent distress HEENT: Atraumatic, PERRLA, EOMI Neck: Supple, JVD not distended Respiratory: Clear to auscultation bilaterally, Normal air movement Cardiovascular: Regular rate/rhythm, Normal S1 S2 Gastrointestinal: Normal bowel sounds, No tenderness Musculoskeletal: No tenderness Integumentary: No rashes Neurological: Normal speech, Normal tone, Normal affect Lymphatics: No axilla or inguinal lymphadenopathy Assessment & Plan - Problems (Diagnosis) (1) Non-STEMI (non-ST elevated myocardial infarction) Onset Date: 03/26/18 Current Visit: No Status: Acute Plan: most likely will need a cath. Continue monitoring his troponins. dilaudid for chest pain 11/07 Plans for cath tomorrow. Will continue to monitor the patient till then (2) HTN (hypertension) Current Visit: No Status: Chronic Plan: restart his valsartan. will add metoprolol as he improves Qualifiers: Hypertension type: primary hypertension Qualified Code(s): I10 - Essential (primary) hypertension (3) Type 2 diabetes mellitus Onset Date: 03/26/18 Current Visit: No Status: Chronic Plan: start sliding scale insulin. Will hold the metformin as he is likely to get contrast soon. Continue iv fluids. 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
[2020-11-07] MEDS ORDERED: NA CHLORIDE 0.9% 500 ML ONE (14:47)
[2020-11-07] MEDS ORDERED: VERAPAMIL HCL 10 MG/4 ML VIAL IV ONE (14:57)
[2020-11-07] MEDS ORDERED: FENTANYL CITR 100 MCG/2 ML ONE ×2 (14:57→15:59)
[2020-11-07] MEDS ORDERED: TICAGRELOR 90 MG TABLET PO ONE (14:57)
[2020-11-07] MEDS ORDERED: MIDAZOLAM HCL 2 MG/2 ML INJ ONE ×2 (14:57→15:59)
[2020-11-07] MEDS ORDERED: ATROPINE SULF 1 MG/10 ML SYR IV ONE (14:58)
[2020-11-07] MEDS ORDERED: CLOPIDOGREL 75 MG TABLET ONE (15:55)
[2020-11-07] MEDS ORDERED: HEPARIN 5000 UNIT/ML 1 ML VIAL ONE (16:14)
[2020-11-07 18:46] VITALS: BP 109/75; O2SAT 99
--- NOTE | 2020-11-07 19:01 | OP ---
Date of Procedure: 11/07/2020 Surgeon: MONIQUE SANABRIA Procedures Performed: 1.Selective coronary angiogram. 2.Left heart catheterization. 3.PCI of 100% occlusion of mid RCA using a 3.5 x 28 mm Synergy drug-eluting stent. Access: Right radial artery 6-Moldovan closed with TR band. Indication: Non-ST elevation myocardial infarction. Complications: None. Bleeding: Less than 10 mL. Description Of Procedure: After risks, benefits, and alternatives were explained, the patient agreed to proceed and signed informed consent. The patient was brought into the cardiac catheterization la boratory, prepped and draped in usual sterile fashion. Then, I accessed the right radial artery usin g pediatric micropuncture kit and took a 5-Moldovan Scotrun 4.0 catheter in the aortic root, engaged the left main and left coronary artery. Took standard views. Then, I decided to intervene on the right coronary artery, see below. Intervention Details: We gave systemic heparin to assure ACT level above 250. We gave 180 mg of Amita linta and then proceeded with a 6-Moldovan JR4 guide into the aortic root over a J-wire, engaged the RC A. Then, I took a short Run-Through wire into the area of stenosis, placed it all the way in the PDA . Using 3.0 x 50 mm NC balloon, pre-dilated the lesion and the stent and established flow in the art kenyetta. Initially, there was a JAZMYNE 0 flow and after ballooning it, established JAZMYNE-3 flow. Then, I t ook a 3.5 x 28 mm stent, overlapped with the old stent and went up to high pressure inside the old st ent just short of the distal edge and then hit our levels of high-pressure and took final picture, sh owed JAZMYNE-3 flow with excellent results. Then, I removed the catheter and the sheath, placed TR band with good hemostasis. Findings: 1.Left main is large, long with luminal irregularities. 2.LAD; moderate-size, luminal regularities throughout and diagonal 1 branch has mid 70% stenosis, un changed from prior. 3.Left circumflex is not visible on this angiogram and was not visible on the angiogram in January 2020 and likely accessory vessel could see a hint from the right coronary artery of it. 4.RCA; 100% occlusion of mid RCA, which is a culprit for the IL, status post successful PCI as above with establishment of JAZMYNE-3 flow with 0% residual stenosis. Conclusion: 1.100% occlusion of the mid RCA, status post PCI as above with 0% residual stenosis and JAZMYNE-3 flow, status post PCI. 2.Frwdlgft-du-sfukql diagonal 1 stenosis. 3.Likely accessory left circumflex artery. 4.LVEDP of 23 mm and upon pullback, there was no difference in pressure. No gradient. Plan: We will switch him to Brilinta. He probably failed the Plavix. Continue aspirin and high-dos e statin. Follow up with me in the office in 1-2 weeks. SR/MODL Voice ID: [id number] Report ID: [id number]
--- NOTE | 2020-11-07 19:22 | P.DS ---
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 The patient was initially to have a cath Left ama. Returned when his chest pain was worsening Hospital Course: Patient was admitted. His pain was managed. The patient was cathed by Dr. Martínez. He had a complete occlusion of the RCA that was stented. The patient was asked to stay and have a follow up echocardiogram. Most likely would be discharged in the morning. He however insists on going home. As he has a history of leaving ama, will discharge the patient and have him follow up with Dr Martínez for a echo. Considering he has severe disease that is appropriate. Vital Signs/Physical Exam: Temp Pulse Resp BP Pulse Ox 98.1 F 98 H 16 109/75 98 11/07/20 13:36 11/07/20 18:36 11/07/20 18:36 11/07/20 18:36 11/07/20 13:48 General: Alert, In no apparent distress HEENT: Atraumatic, PERRLA, EOMI Neck: Supple, JVD not distended Respiratory: Clear to auscultation bilaterally, Normal air movement Cardiovascular: Regular rate/rhythm, Normal S1 S2 Gastrointestinal: Normal bowel sounds, No tenderness Musculoskeletal: No tenderness Integumentary: No rashes Neurological: Normal speech, Normal tone, Normal affect Lymphatics: No axilla or inguinal lymphadenopathy Laboratory Data at Discharge: WBC 8.50 K/uL (4.3-10.9) D 11/07/20 05:00 Hgb 13.3 g/dL (13.6-17.9) L 11/07/20 05:00 Hct 39.9 % (39.6-49.0) 11/07/20 05:00 Plt Count 131 K/uL (152-406) L 11/07/20 05:00 PT 12.5 SECONDS (9.5-12.5) 11/06/20 05:30 INR 1.09 11/06/20 05:30 APTT 36.2 SECONDS (24.3-36.9) 11/07/20 05:07 Sodium 137 mmol/L (136-145) 11/07/20 05:07 Potassium 4.1 mmol/L (3.5-5.1) 11/07/20 05:07 BUN 13 mg/dL (7-18) 11/07/20 05:07 Creatinine 1.00 mg/dL (0.55-1.3) 11/07/20 05:07 Glucose 208 mg/dL (74-106) H 11/07/20 05:07 Phosphorus 4.2 mg/dL (2.5-4.9) 11/06/20 02:45 Magnesium 1.9 mg/dL (1.8-2.4) 11/07/20 05:07 Total Bilirubin 0.3 mg/dL (0.2-1.0) 11/06/20 02:45 AST 91 U/L (15-37) H 11/06/20 02:45 ALT 84 U/L (12-78) H 11/06/20 02:45 Alkaline Phosphatase 55 U/L (45-117) 11/06/20 02:45 Troponin I 15.40 ng/mL (0.0-0.045) H* D 11/06/20 09:45 Triglycerides 515 mg/dL (<150) H 11/06/20 02:45 Cholesterol 140 mg/dL (<200) 11/06/20 02:45 LDL Cholesterol Direct 80 mg/dL (100-129) L 11/06/20 02:45 HDL Cholesterol 29 mg/dL (40-60) L 11/06/20 02:45 Cholesterol/HDL Ratio 4.83 11/06/20 02:45 Home Medications: Metformin HCl 1,000 mg PO BID 02/16/20 gemfibroziL [Lopid*] 600 mg PO BID 02/16/20 Atorvastatin Calcium [Lipitor] 80 mg PO DAILY #30 tablet 02/17/20 Valsartan [Diovan*] 40 mg PO DAILY #30 tab 02/17/20 carvediloL [Coreg*] 25 mg PO BID 6AM 6PM #60 tab 02/17/20 Clopidogrel Bisulfate [Plavix*] 75 mg PO BEDTIME 04/18/20 Insulin Glargine/Lixisenatide [Soliqua 100 Unit-33 Mcg/ml Pen] 50 units SQ BEDTIME 11/06/20 Aspirin [Aspirin EC 81 MG] 81 mg PO DAILY 30 Days #30 tab 11/07/20 Atorvastatin Calcium [Lipitor] 80 mg PO DAILY 30 Days #30 tab 11/07/20 Ticagrelor [Brilinta] 60 mg PO BID 30 Days #60 tablet 11/07/20 New Medications: Aspirin [Aspirin EC 81 MG] 81 mg PO DAILY 30 Days #30 tab Ticagrelor [Brilinta] 60 mg PO BID 30 Days #60 tablet Atorvastatin Calcium [Lipitor] 80 mg PO DAILY 30 Days #30 tab Diet: AHA Followup: Bong Keene MD [Primary Care Provider] - Julio Cesar Martínez MD [ACTIVE - CAN ADMIT] - 1-2 Weeks Time spent managing pt's care (in minutes): 45
== END 2020-11-07 19:30 | disposition home or self-care (01) | DRG 247 ==
LOC: ER 17:30 → ERHOLD 18:59 → 2ND 23:04
PROVIDERS: ADMIT Internal Medicine; ATTEND Internal Medicine
PROC: 027034Z Dilation of Coronary Artery, One Artery with Drug-eluting Intraluminal Device, Percutaneous Approach (ICD-10-PCS; principal; 2020-11-07)
PROC: B201YZZ Plain Radiography of Multiple Coronary Arteries using Other Contrast (ICD-10-PCS; 2020-11-07)
DX: I21.4 Non-ST elevation (NSTEMI) myocardial infarction (principal); I25.10 Atherosclerotic heart disease of native coronary artery without angina pectoris; I10 Essential (primary) hypertension; E11.9 Type 2 diabetes mellitus without complications; Z95.5 Presence of coronary angioplasty implant and graft; Z20.822 Contact with and (suspected) exposure to COVID-19
CPT/HCPCS: 36415; 71045; 80048; 80053; 80061; 80076; 82947; 83036; 83735; 83880; 84100; 84439; 84443; 84484; 85025; 85347; 85610; 85730; 92920; 92928; 93005; 93458; 94760; 96372; 96374; 96375; 99285; C1725; C1887; C1893; J1170; J1644; J1650; J2250; J2270; J2405; J3010; J7030; J7040; U0003

== ENCOUNTER 2021-08-25 | Emergency (ER) | payer OTHER, SELFPAY ==
[2021-08-25] MEDS ORDERED: LIDOCAINE 1% 20 ML MDV ONE (00:25)
--- NOTE | 2021-08-25 00:41 | ER ---
Nurse's Notes [facility] Name: Mat Black Age: 35 yrs Sex: Male : 1985 Arrival Date: 08/25/2021 Time: 00:02 Bed 18 Private MD: Diagnosis: Laceration without foreign body of left wrist Presentation: 08/25 00:25 Chief complaint: Patient states: i fell with glass jar in my hand and the glass broke lg3 and cut my wrist. Coronavirus screen: Client denies travel out of the [place] in the last 14 days. At this time, the client does not indicate any symptoms associated with coronavirus-19. Ebola Screen: No symptoms or risks identified at this time. Complicating Factors: There are no complicating factors for this patient. Initial Sepsis Screen: Does the patient meet any 2 criteria? No. Patient's initial sepsis screen is negative. Does the patient have a suspected source of infection? No. Patient's initial sepsis screen is negative. Risk Assessment: Do you want to hurt yourself or someone else? Patient reports no desire to harm self or others. Onset of symptoms was August 25, 2021. 00:25 Method Of Arrival: Ambulatory lg3 00:25 Acuity: LILA 4 lg3 Triage Assessment: 00:26 General: Appears in no apparent distress. comfortable, Behavior is calm, cooperative. lg3 Pain: Complains of pain in palmar aspect of left wrist. EENT: No deficits noted. No signs and/or symptoms were reported regarding the EENT system. Neuro: No deficits noted. Level of Consciousness is awake, alert, obeys commands, Oriented to person, place, time, situation. Cardiovascular: No deficits noted. Denies chest pain, shortness of breath, Capillary refill < 3 seconds Clubbing of nail beds is absent JVD is absent Patient's skin is warm and dry. Respiratory: No deficits noted. Airway is patent Trachea midline Respiratory effort is even, unlabored, Respiratory pattern is regular, symmetrical. GI: No deficits noted. No signs and/or symptoms were reported involving the gastrointestinal system. Abdomen is round non-distended. : No deficits noted. No signs and/or symptoms were reported regarding the genitourinary system. Derm: Wound noted palmar aspect of left wrist Wound is linear laceration. Musculoskeletal: No deficits noted. No signs and/or symptoms reported regarding the musculoskeletal system. Circulation, motion, and sensation intact. Range of motion: intact in all extremities. Injury Description: Laceration sustained to palmar aspect of left wrist. Historical: - Allergies: 00:26 Lisinopril; lg3 - PMHx: 00:26 Diabetes - IDDM; HEART ATTACKS; Hyperlipidemia; Hypertension; NSTEMI x 2; lg3 - PSHx: 00:26 cardiac stents; cardiac stents x 2; right knee; left ankle; lg3 - Immunization history:: Adult Immunizations up to date, Client reports receiving the 2nd dose of the Covid vaccine, modern X2. - Social history:: Smoking status: Patient denies any tobacco usage or history of. Patient/guardian denies using alcohol, street drugs. Screenin:29 Abuse screen: Denies threats or abuse. Denies injuries from another. Nutritional lg3 screening: No deficits noted. Tuberculosis screening: No symptoms or risk factors identified. Fall Risk None identified. Assessment: 00:29 General: see triage assessment . lg3 00:45 Reassessment: Patient appears in no apparent distress at this time. No changes from lg3 previously documented assessment. Patient and/or family updated on plan of care and expected duration. Pain level reassessed. Patient is alert, oriented x 3, equal unlabored respirations, skin warm/dry/pink. 00:46 Injury Description: Laceration is clean, 2.6 to 7.5 cm long, bleeding moderately. lg3 Vital Signs: 00:31 BP 138 / 88; Pulse 72; Resp 17 S; Temp 98.5(O); Pulse Ox 100% on R/A; Weight 96.16 kg lg3 (R); Height 5 ft. 8 in. (172.72 cm) (R); Pain 4/10; 00:31 Body Mass Index 32.23 (96.16 kg, 172.72 cm) lg3 ED Course: 00:02 Patient arrived in ED. bp1 00:11 Flor Enriquez FNP-C is PHCP. kb 00:11 Adriana Stephenson MD is Attending Physician. kb 00:22 Pamela Pozo, BRANDON is Primary Nurse. lg3 00:26 Triage completed. lg3 00:26 Arm band placed on right wrist. lg3 00:29 Assist provider with laceration repair on palmar aspect of left wrist using sutures. lg3 Set up tray. Performed by Flor ISABEL Patient tolerated well. Patient did not have IV access during this emergency room visit. 00:30 Patient has correct armband on for positive identification. Bed in low position. Call lg3 light in reach. Client placed on continuous cardiac and pulse oximetry monitoring. NIBP monitoring applied. Door closed. Noise minimized. Administered Medications: 00:45 Drug: Lidocaine (1 %) 1 vials Volume: 20 ml; Route: Infiltration; 3 00:45 Follow up: Response: No adverse reaction lg3 Medication: 00:30 VIS not applicable for this client. lg3 Outcome: 00:41 Discharge ordered by . alba 00:45 Discharged to home ambulatory. lg3 00:45 Condition: stable 00:45 Discharge instructions given to patient, Instructed on discharge instructions, follow up and referral plans. Demonstrated understanding of instructions, follow-up care. 00:46 Patient left the ED. lg3 Signatures: Flor Enriquez, MAAME OROPEZA-Pamela Rodriguez, RN RN lg3 Anju Aparicio bp1
--- NOTE | 2021-08-25 00:41 | EDPHYS ---
Physician Documentation [facility] Name: Mat Black Age: 35 yrs Sex: Male : 1985 Arrival Date: 08/25/2021 Time: 00:02 Bed 18 Private MD: ED Physician Adriana Stephenson HPI: 08/25 00:45 This 35 yrs old Male presents to ER via Ambulatory with complaints of Laceration, - kb Wrist. 00:45 The patient has a laceration related to: falling occurred at home, and there are no kb complicating factors. The injury was accidental. The laceration(s) is(are) located on the palmar aspect of left wrist. Onset: The symptoms/episode began/occurred just prior to arrival. Associated signs and symptoms: The patient has no apparent associated signs or symptoms. The patient has not experienced similar symptoms in the past. The patient has not recently seen a physician. Pt was walking with a glass jar and tripped over bedsheet causing him to fall, the glass to break and cut his wrist. . Historical: - Allergies: 00:26 Lisinopril; lg3 - PMHx: 00:26 Diabetes - IDDM; HEART ATTACKS; Hyperlipidemia; Hypertension; NSTEMI x 2; lg3 - PSHx: 00:26 cardiac stents; cardiac stents x 2; right knee; left ankle; lg3 - Immunization history:: Adult Immunizations up to date, Client reports receiving the 2nd dose of the Covid vaccine, modern X2. - Social history:: Smoking status: Patient denies any tobacco usage or history of. Patient/guardian denies using alcohol, street drugs. ROS: 00:42 Constitutional: Negative for fever, chills, and weight loss. kb 00:42 MS/extremity: Positive for laceration. 00:42 All other systems are negative. Exam: 00:44 Constitutional: This is a well developed, well nourished patient who is awake, alert, kb and in no acute distress. Head/Face: Normocephalic, atraumatic. ENT: Moist Mucous membranes Respiratory: Respirations even and unlabored. No increased work of breathing. Talking in full sentences MS/ Extremity: Pulses equal, no cyanosis. Neurovascular intact. Full, normal range of motion. Neuro: Awake and alert, GCS 15, oriented to person, place, time, and situation. Moves all extremities. Normal gait. Psych: Awake, alert, with orientation to person, place and time. Behavior, mood, and affect are within normal limits. 00:44 Skin: injury, laceration(s), the wound is approximately 5 cm(s), of the palmar aspect of left wrist, that can be described as clean, no foreign body, linear, without bleeding. Vital Signs: 00:31 BP 138 / 88; Pulse 72; Resp 17 S; Temp 98.5(O); Pulse Ox 100% on R/A; Weight 96.16 kg lg3 (R); Height 5 ft. 8 in. (172.72 cm) (R); Pain 4/10; 00:31 Body Mass Index 32.23 (96.16 kg, 172.72 cm) lg3 Laceration: 00:44 Wound Repair of 5cm ( 2.0in ) subcutaneous laceration to palmar aspect of left wrist. kb Linear shaped.. Distal neuro/vascular/tendon intact. Anesthesia: Wound infiltrated with 4 mls of 1% lidocaine. Wound prep: Extensive cleansing with hibiclenz by me, Wound irrigation with saline by me. Skin closed with 9 5-0 Prolene using simple sutures and sterile technique. Patient tolerated well. MDM: 00:11 Patient medically screened. kb 00:43 Data reviewed: vital signs, nurses notes. Data interpreted: Pulse oximetry: on room air kb is 100 %. Interpretation: normal. Counseling: I had a detailed discussion with the patient and/or guardian regarding: the historical points, exam findings, and any diagnostic results supporting the discharge/admit diagnosis, the need for outpatient follow up, a family practitioner, to return to the emergency department if symptoms worsen or persist or if there are any questions or concerns that arise at home. 08/25 00:42 Order name: Dressing - Wound; Complete Time: 00:45 kb 08/25 00:42 Order name: Gloves, Sterile; Complete Time: 00:45 kb 08/25 00:42 Order name: Prolene, Sutures; Complete Time: 00:45 kb 08/25 00:42 Order name: Setup Suture Tray; Complete Time: 00:45 kb Administered Medications: 00:45 Drug: Lidocaine (1 %) 1 vials Volume: 20 ml; Route: Infiltration; lg3 00:45 Follow up: Response: No adverse reaction lg3 Disposition Summary: 08/25/21 00:41 Discharge Ordered Location: Home kb Condition: Stable kb Diagnosis - Laceration without foreign body of left wrist kb Followup: kb - With: Emergency Department - When: As needed - Reason: Worsening of condition Followup: kb - With: Private Physician - When: 2 - 3 days - Reason: Recheck today's complaints, Continuance of care, Re-evaluation by your physician Discharge Instructions: - Discharge Summary Sheet kb - Laceration Care, Adult, [id number] kb Forms: - Medication Reconciliation Form kb - Thank You Letter kb - Antibiotic Education kb - Work release form kb - Prescription Opioid Use kb Signatures: Flor Enriquez, JOHNNA-C JOHNNA-Pamela Rodriguez, RN RN lg3
[2021-08-25 01:07] VITALS: BP 138/88; TEMP 98.5; O2SAT 100
== END 2021-08-25 00:46 | disposition home or self-care (01) ==
LOC: ER
PROC: 0JQH0ZZ Repair Left Lower Arm Subcutaneous Tissue and Fascia, Open Approach (ICD-10-PCS; principal; 2021-08-25)
DX: S61.512A Laceration without foreign body of left wrist, initial encounter (principal); E11.9 Type 2 diabetes mellitus without complications; I10 Essential (primary) hypertension; I25.2 Old myocardial infarction; Z95.818 Presence of other cardiac implants and grafts
CPT/HCPCS: 99283

== ENCOUNTER 2022-08-10 08:57 | Observation (INO) | payer BC ==
--- OUTSIDE RECORDS SUMMARY | 2022-08-10 08:59 | XMS REPORT | Continuity of Care Document ---
:1985 Author Organization [facility] t Address [address] [facility]. [address] [place] [address] Care Team Providers Name Role Phone MONTEZ ALFARO Primary Care Physician Unavailable COCO CARRILLO Attending Clinician Unavailable Coco Anaya Attending Clinician COCO CARRILLO Admitting Clinician Unavailable Problems Condition Condition Condition Status Onset Resolution Last Treating Co mments Source Name Details Category Date Date Treatment Clinician Date No known No known Disease Unive rs active active ity of problems problems [facility] Allergies, Adverse Reactions, Alerts Allergy Allergy Status Severity Reaction(s) Onset Inactive Treating Comm ents Source Name Type Date Date Clinician [place] DRUG Active Swelling Univer s E INGREDI 3-28 ity of 00:00: [place] 00 [facility] [employer] Propensi Active Swelling Univ ers e ty to 3-28 ity of adverse 00:00: [place] reaction 00 Medical s Branch Social History Social Habit Start Date Stop Date Quantity Comments Source Exposure to Not sure [facility] SARS-CoV-2 (event) Medica l Branch Sex Assigned At [birth year] [facility] 00:00:00 00:00:00 Medical Branch Smoking Status Start Date Stop Date Source Unknown if ever smoked [facility] Medications Ordered Filled Start Stop Current Ordering Indication Dosage Frequency Signature Comments Components Source Medication Medication Date Date Medication? Clinician (SIG) Name Name ketorolac 2021- No 30mg 30 mg, Unive rs (TORADOL) 05-23 03-29 Slow IV ity of injection 06:00: 04:58 Push, [place] 30 mg 00 :00 ONCE, 1 Medical dose, On Branch 05/23/21 at 0100, ADITI HYDROcodone 2021- No 1{tbl} 1 tablet, Univers -acetaminop 05-23 Oral, ONCE i ty of hen (NORCO) 05:15: 04:14 NOW, 1 Erik as 10-325 mg 00 :00 dose, On Medica l tablet 1 Tue Branch tablet 05/23/21 at 0015, ADITI ibuprofen Yes [id number] 800mg Take 1 Univers 800 mg 05-23 3 tablet by ity of tablet 00:00: mouth [place] 00 every 8 Medical (eight) Branch hours as needed for Pain (scale 4-6). acetaminoph 2021- No 4647 1{tbl} Take 1 U nivers en-codeine 05-23-06 tablet by ity of 300-30 mg 00:00: 04:59 mouth [place] tablet 00 :00 every 6 Medical (six) Branch hours as needed for Pain (scale 7-10) for up to 7 days. Indication s: acute pain Vital Signs Vital Name Observation Time Observation Value Comments Source Systolic blood 2021-05-23 05:00:00 168 mm[Hg] Univer sity of pressure [facility] Diastolic blood 2021-05-23 05:00:00 110 mm[Hg] [facility] Heart rate 2021-05-23 05:00:00 103 /min [facility] Respiratory rate 2021-05-23 05:00:00 20 /min [facility] Oxygen saturation in 2021-05-23 05:00:00 96 /min [facility] Arterial blood by [facility] Pulse oximetry [place] Body temperature 2021-05-23 03:40:00 37 Jena [facility] Body height 2021-05-23 03:40:00 180.3 cm [facility] Body weight 2021-05-23 03:40:00 123.378 kg [facility] BMI 2021-05-23 03:40:00 37.94 kg/m2 [facility] Procedures Procedure Date / Time Performed Performing Clinician Sour e XR KNEE 3 VW RIGHT 2021-05-23 04:05:28 Coco Carrillo [facility] ty [facility] [place] URIC ACID 2021-05-23 04:04:00 Coco Carrillo [facility] BASIC METABOLIC PANEL 2021-05-23 04:04:00 Coco Carrillo [facility] (NA, K, CL, CO2, Medical Branch GLUCOSE, BUN, CREATININE, CA) CBC WITH DIFF 2021-05-23 04:04:00 Coco Carrillo [facility] NOTICE OF PRIVACY 2021-05-23 03:35:54 Doctor Unassigned, No [facility] Name [facility] CONSENT/REFUSAL FOR 2021-05-23 03:35:32 Doctor Unassigned, No [facility] DIAGNOSIS AND Name [facility] TREATMENT Encounters Start End Encounter Admission Attending Care Care Encounter Source Date/Time Date/Time Type Type Clinicians Facility Department ID 2021-05-22 2021-05-23 [id number] Univers 22:38:00 00:29:00 COCO gallegos [facility] [place] 2021-05-22 2021-05-23 [facility] [id number] Univers 22:38:00 00:29:00 Coco BENAVIDES [id number] i [facility] [id number] [facility] [id number] [place] [id number] Branch Results Test Description Test Time Test Comments Results Result Comments Source URIC ACID 2021-05-23 04:55:54 Test Item Value Reference Range Interpretation Comme nts URIC ACID (test code = 3759767593) 7.2 mg/dL 3.6-8.0 Lab Interpretation (test code = 73500-0) Normal [facility] (NA, K, CL, CO2, GLUCOSE, BUN, CREATININE, CA)2021-05-23 04:33:48 Test Item Value Reference Range Interpretation Comments NA (test code = 136 mmol/L 135-145 5810415081) K (test code = 4.2 mmol/L 3.5-5.0 9983286041) CL (test code = 100 mmol/L 98-108 7202091261) CO2 TOTAL (test code = 22 mmol/L 23-31 L 7817297692) AGAP (test code = 2-16 1310644191) BUN (test code = 17 mg/dL 7-23 7978044730) GLUCOSE (test code = 349 mg/dL 70-110 H 7745553643) CREATININE (test code = 0.86 mg/dL 0.60-1.25 9401781091) CALCIUM (test code = 8.9 mg/dL 8.6-10.6 2070513120) eGFR (test code = mL/min/1.73m2 1690421835) ANG (test code = ANG) Association of Glomerular Filtration Rate (GFR) and Staging of Kidney Disease* + --+ --+ ------+| GFR (mL/min/1.73 m2) ?| With Kidney Damage ?| ?Without Kidney Damage+ --------+ --------+ +| ?>90 ?| ?Stage one ?| ? Normal ?+ ---+ ---+ -------+| ?60-89 ?| ?Stage two ?| ? Decreased GFR ? + --+ --+ ------+| ?30-59 ?| ?Stage three ?| ? Stage three ? + --+ --+ ------+| ?15-29 ?| ?Stage four ? | ? Stage four ?+ ---+ ---+ -------+| ?<15 (or dialysis) ? ?| ?Stage five ? | ? Stage five ?+ ---+ ---+ -------+ *Each stage assumes the associated GFR level has been in effect for at least three months. ?Stages 1 to 5, with or without kidney disease, indicate chronic kidney disease. Notes: Determination of stages one and two (with eGFR >59mL/min/1.73 m2) requires estimation of kidney damage for at least three months as defined by structural or functional abnormalities of the kidney, manifested by either:Pathological abnormalities or Markers of kidney damage (including abnormalities in the composition of the blood or urine or abnormalities in imaging tests). Lab Interpretation Abnormal (test code = 65174-9) [facility] WITH [id number] 04:31:12 Test Item Value Reference Range Interpretation Comments WBC (test code = See_Comment [Automated message] 6690-2) The system [email or web address] generated this result transmitted ref erence range: 4.20 - 1 0.70 10*3/?L. The re ference range was not u sed to interpret this result as normal/abnor mal. RBC (test code = See_Comment [Automated message] 789-8) The system [email or web address] generated this result transmitted ref erence range: 4.26 - 5 .52 10*6/?L. The re ference range was not u sed to interpret this result as normal/abnor mal. HGB (test code = 13.7 g/dL 12.2-16.4 718-7) HCT (test code = 40.3 % 38.4-49.3 4544-3) MCV (test code = 86.1 fL 81.7-95.6 787-2) MCH (test code = 29.3 pg 26.1-32.7 785-6) MCHC (test code = 34.0 g/dL 31.2-35.0 786-4) RDW-SD (test code 40.6 fL 38.5-51.6 = 93145-6) RDW-CV (test code 13.1 % 12.1-15.4 = 788-0) PLT (test code = See_Comment [Automated message] 777-3) The system [email or web address] generated this result transmitted ref erence range: 150 - 32 8 10*3/?L. The re ference range was not u sed to interpret this result as normal/abnor mal. MPV (test code = 11.1 fL 9.8-13.0 72767-9) NRBC/100 WBC (test See_Comment [Automat ed message] code = 9928199527) The syste [employer] which generated this result transmitted ref erence range: 0.0 - 10 .0 /100 WBCs. The refer ence range was not u sed to interpret this result as normal/abnor mal. NRBC x10^3 (test <0.01 See_Comment [Automated message] code = 6987065719) The syste m which generated this result transmitted ref erence range: 10*3/?L. The reference range was not used to interpr et this result as normal/abnormal . GRAN MAT (NEUT) % 60.3 % (test code = 623-8) IMM GRAN % (test 0.50 % code = 5172461562) LYMPH % (test code 24.4 % = 736-9) MONO % (test code 8.9 % = 5905-5) EOS % (test code = 5.5 % 713-8) BASO % (test code 0.4 % = 706-2) GRAN MAT 4.56 10*3/uL 1.99-6.95 x10^3(ANC) (test code = 0496110903) IMM GRAN x10^3 0.04 10*3/uL 0.00-0.06 (test code = 2187331596) LYMPH x10^3 (test 1.85 10*3/uL 1.09-3.23 code = 731-0) MONO x10^3 (test 0.67 10*3/uL 0.36-1.02 code = 742-7) EOS x10^3 (test 0.42 10*3/uL 0.06-0.53 code = 711-2) BASO x10^3 (test 0.03 10*3/uL 0.01-0.09 code = 704-7) [facility]"
--- NOTE | 2022-08-10 09:43 | ER ---
Nurse's Notes [facility] Name: Mat Black Age: 36 yrs Sex: Male : 1985 Arrival Date: 08/10/2022 Time: 08:57 Bed 18 Private MD: Bong Keene T Diagnosis: Chest pain, unspecified;Diabetes mellitus due to underlying condition without complications Presentation: 08/10 09:03 Chief complaint: Patient states: midsternal chest pain and SOB for days, hx of [place] and iw cardiac stents. Coronavirus screen: At this time, the client does not indicate any symptoms associated with coronavirus-19. Ebola Screen: Patient negative for fever greater than or equal to 101.5 degrees Fahrenheit, and additional compatible Ebola Virus Disease symptoms Patient denies exposure to infectious person. Patient denies travel to an Ebola-affected area in the 21 days before illness onset. No symptoms or risks identified at this time. Initial Sepsis Screen: Does the patient meet any 2 criteria? No. Patient's initial sepsis screen is negative. Does the patient have a suspected source of infection? No. Patient's initial sepsis screen is negative. Risk Assessment: Do you want to hurt yourself or someone else? Patient reports no desire to harm self or others. Onset of symptoms was July 27, 2022. 09:03 Method Of Arrival: Ambulatory iw 09:03 Acuity: LILA 2 iw Historical: - Allergies: 09:05 Lisinopril; iw - PMHx: 09:05 Diabetes - IDDM; HEART ATTACKS; Hyperlipidemia; Hypertension; NSTEMI x 2; iw - PSHx: 09:05 cardiac stents; cardiac stents x 2; Left ankle; right knee; iw Vital Signs: 09:03 BP 140 / 96; Pulse 93; Resp 18; Temp 98.1; Pulse Ox 97% on R/A; Weight 118.84 kg; iw Height 5 ft. 10 in. ; Pain 4/10; 10:35 BP 142 / 92; Pulse 84; Resp 16; Pulse Ox 98% ; os 14:06 BP 121 / 79; Pulse 78; Resp 18; Pulse Ox 98% on R/A; os 09:03 Body Mass Index 37.59 (118.84 kg, 177.8 cm) iw 09:03 Pain Scale: Adult ED Course: 08:59 Patient arrived in ED. mr 08:59 Bong Keene MD is Private Physician. mr 09:04 Kaylen Hudson FNP-C [facility]. snw 09:04 Osvaldo Murillo MD is Attending Physician. snw 09:05 Triage completed. iw 09:32 Jerzy Naik, RN is Primary Nurse. os 09:32 Basic Metabolic Panel Sent. mm9 09:32 CBC with Diff Sent. mm9 09:32 LFT's Sent. mm9 09:32 Magnesium Sent. mm9 09:32 NT PRO-BNP Sent. mm9 09:32 PT-INR Sent. mm9 09:32 Troponin HS Sent. mm9 09:33 DD Sent. mm9 09:33 Initial lab(s) drawn, by me, sent to lab. EKG done, by ED staff, by outside plant technician. reviewed mm9 by Osvaldo Murillo MD. Inserted saline lock: 20 gauge in left forearm, using aseptic technique. Blood collected. 09:33 Patient has correct armband on for positive identification. Placed in gown. Bed in low mm9 position. Call light in reach. Side rails up X2. Adult w/ patient. Warm blanket given. Client placed on continuous cardiac and pulse oximetry monitoring. NIBP monitoring applied. youth nutritional monitor on. Pulse ox on. NIBP on. 09:41 Charmaine Bolanos MD is Hospitalizing Provider. snw 09:47 XRAY Chest (1 view) In Process Unspecified. EDMS 12:49 Troponin High Sensitivity Sent. os Administered Medications: 09:15 CANCELLED (Physician Discretion): Aspirin PO Chewable Tablet 324 mg PO once; 81 mg snw tablets x 4 09:55 Drug: fentaNYL (PF) IVP 25 mcg Route: IVP; Site: left forearm; os 10:34 Follow up: Response: No adverse reaction os 10:24 Drug: Aspirin PO Chewable Tablet 324 mg Route: PO; os 10:34 Follow up: Response: No adverse reaction os 10:25 Drug: HYDROmorphone IVP 1 mg Route: IVP; Site: left forearm; os 10:34 Follow up: Response: No adverse reaction os Outcome: 09:42 Decision to Hospitalize by Provider. snw 14:06 Patient left the ED. os Signatures: Dispatcher [employer] EDMS Kaylen Hudson FNP-C PACKING MACHINE INSPECTOR-Csnw Marychuy Gipson mr Mary Grace Marina, RN RN Keely Haque mm9 Jerzy Naik, BRANDON TAYLOR os
--- NOTE | 2022-08-10 09:43 | EDPHYS ---
Physician Documentation [facility] Name: Mat Black Age: 36 yrs Sex: Male : 1985 Arrival Date: 08/10/2022 Time: 08:57 Bed 18 Private MD: Bong Keene T ED Physician Osvaldo Murillo HPI: 08/10 09:24 This 36 yrs old Male presents to ER via Ambulatory with complaints of Chest Pain. snw 09:24 Onset: The symptoms/episode began/occurred acutely. Associated signs and symptoms: snw Pertinent positives: chest pain. The patient has experienced similar episodes in the past, 3 NSTEMI in the past, patient has two stents, takes asa and brelinta. . Historical: - Allergies: 09:05 Lisinopril; iw - PMHx: 09:05 Diabetes - IDDM; HEART ATTACKS; Hyperlipidemia; Hypertension; NSTEMI x 2; iw - PSHx: 09:05 cardiac stents; cardiac stents x 2; Left ankle; right knee; iw ROS: 09:24 Constitutional: Negative for fever, chills, and weight loss, Eyes: Negative for injury, snw pain, redness, and discharge, ENT: Negative for injury, pain, and discharge, Neck: Negative for injury, pain, and swelling, Respiratory: Negative for shortness of breath, cough, wheezing, and pleuritic chest pain, Abdomen/GI: Negative for abdominal pain, nausea, vomiting, diarrhea, and constipation, Back: Negative for injury and pain, : Negative for injury, bleeding, discharge, and swelling, MS/Extremity: Negative for injury and deformity, Skin: Negative for injury, rash, and discoloration, Neuro: Negative for headache, weakness, numbness, tingling, and seizure, Psych: Negative for depression, anxiety, suicide ideation, homicidal ideation, and hallucinations. 09:24 Cardiovascular: Positive for chest pain, of the chest. Exam: 09:23 Constitutional: This is a well developed, well nourished patient who is awake, alert, snw and in no acute distress. Head/Face: Normocephalic, atraumatic. Eyes: Pupils equal round and reactive to light, extra-ocular motions intact. Lids and lashes normal. Conjunctiva and sclera are non-icteric and not injected. Cornea within normal limits. Periorbital areas with no swelling, redness, or edema. ENT: Nares patent. No nasal discharge, no septal abnormalities noted. Tympanic membranes are normal and external auditory canals are clear. Oropharynx with no redness, swelling, or masses, exudates, or evidence of obstruction, uvula midline. Mucous membranes moist. Neck: Trachea midline, no thyromegaly or masses palpated, and no cervical lymphadenopathy. Supple, full range of motion without nuchal rigidity, or vertebral point tenderness. No Meningismus. Chest/axilla: Normal chest wall appearance and motion. Nontender with no deformity. No lesions are appreciated. Respiratory: Lungs have equal breath sounds bilaterally, clear to auscultation and percussion. No rales, rhonchi or wheezes noted. No increased work of breathing, no retractions or nasal flaring. Abdomen/GI: Soft, non-tender, with normal bowel sounds. No distension or tympany. No guarding or rebound. No evidence of tenderness throughout. Back: No spinal tenderness. No costovertebral tenderness. Full range of motion. Skin: Warm, dry with normal turgor. Normal color with no rashes, no lesions, and no evidence of cellulitis. MS/ Extremity: Pulses equal, no cyanosis. Neurovascular intact. Full, normal range of motion. Neuro: Awake and alert, GCS 15, oriented to person, place, time, and situation. Cranial nerves II-XII grossly intact. Motor strength 5/5 in all extremities. Sensory grossly intact. Cerebellar exam normal. Normal gait. Psych: Awake, alert, with orientation to person, place and time. Behavior, mood, and affect are within normal limits. 09:23 Cardiovascular: Rate: normal, Rhythm: regular, Pulses: no pulse deficits are appreciated, Heart sounds: normal, Edema: is not appreciated. Vital Signs: 09:03 BP 140 / 96; Pulse 93; Resp 18; Temp 98.1; Pulse Ox 97% on R/A; Weight 118.84 kg; iw Height 5 ft. 10 in. ; Pain 4/10; 10:35 BP 142 / 92; Pulse 84; Resp 16; Pulse Ox 98% ; os 14:06 BP 121 / 79; Pulse 78; Resp 18; Pulse Ox 98% on R/A; os 09:03 Body Mass Index 37.59 (118.84 kg, 177.8 cm) iw 09:03 Pain Scale: Adult iw MDM: 09:05 Patient medically screened. snw 09:25 Differential diagnosis: STEMI, NSTEMI, atypical chest pain. Data reviewed: vital signs, w nurses notes. Management of patient was discussed with the following: Guard Captain: Dr. Martínez sent pt to ED prior to cardiac cath later today. Will discuss with Hospitalist. Counseling: I had a detailed discussion with the patient and/or guardian regarding: the historical points, exam findings, and any diagnostic results supporting the discharge/admit diagnosis, the presence of at least one elevated blood pressure reading (>120/80) during this emergency department visit. 09:39 Management of patient was discussed with the following: Hospitalist: Admit to [facility] Hospitalist program, medication regimen per Dr. Martínez. Care significantly affected by the following chronic conditions: Diabetes, Hypertension. Special discussion:. 08/10 09:05 Order name: Basic Metabolic Panel; Complete Time: 11:56 [facility] 08/10 09:05 Order name: CBC with Diff; Complete Time: 11:34 [facility] 08/10 09:05 Order name: LFT's; Complete Time: 11:56 [facility] 08/10 09:05 Order name: Magnesium; Complete Time: 11:56 [facility] 08/10 09:05 Order name: NT PRO-BNP; Complete Time: 11:56 [facility] 08/10 09:05 Order name: PT-INR; Complete Time: 11:38 [facility] 08/10 09:05 Order name: Troponin HS; Complete Time: 11:56 [facility] 08/10 09:23 Order name: DD; Complete Time: 09:55 [facility] 08/10 12:13 Order name: Lipid Profile [facility] 08/10 12:13 Order name: Lipid Profile [facility] 08/10 12:13 Order name: Troponin High Sensitivity [facility] 08/10 12:13 Order name: Troponin High Sensitivity [facility] 08/10 12:13 Order name: Troponin High Sensitivity; Complete Time: 13:18 [facility] 08/10 09:05 Order name: XRAY Chest (1 view); Complete Time: 09:55 [facility] 08/10 12:13 Order name: Echo with Doppler [facility] 08/10 09:05 Order name: EKG; Complete Time: 09:05 [facility] 08/10 12:13 Order name: CONS Physician Consult [facility] 08/10 12:13 Order name: Heart Healthy [facility] 08/10 09:05 Order name: Cardiac monitoring; Complete Time: :32 snw 08/10 09:05 Order name: EKG - Nurse/Tech; Complete Time: :32 snw 08/10 09:05 Order name: IV Saline Lock; Complete Time: 09:32 snw 08/10 09:05 Order name: Labs collected and sent; Complete Time: :32 snw 08/10 09:05 Order name: O2 Per Protocol; Complete Time: :32 snw 08/10 09:05 Order name: O2 Sat Monitoring; Complete Time: :32 snw EC:15 Rate is 88 beats/min. Rhythm is regular. QRS [place] is Normal. [place] interval is normal. Q snw waves are Present in leads II, III, aVF. Clinical impression: NSR w/ Non-specific ST/T Changes. Administered Medications: 09:15 CANCELLED (Physician Discretion): Aspirin PO Chewable Tablet 324 mg PO once; 81 mg snw tablets x 4 09:55 Drug: fentaNYL (PF) IVP 25 mcg Route: IVP; Site: left forearm; os 10:34 Follow up: Response: No adverse reaction os 10:24 Drug: Aspirin PO Chewable Tablet 324 mg Route: PO; os 10:34 Follow up: Response: No adverse reaction os 10:25 Drug: HYDROmorphone IVP 1 mg Route: IVP; Site: left forearm; os 10:34 Follow up: Response: No adverse reaction os Disposition: 14:34 I agree with the assessment and plan of care. I reviewed the patient's care provided by ricco the Advanced Practice Provider and agree with the diagnosis and treatment plan. Disposition Summary: 08/10/22 09:42 Hospitalization Ordered Hospitalization Status: Observation snw Provider: Charmaine Bolanos Location: Telemetry/MedSurg (observation) snw Condition: Stable snw Problem: an acute exacerbation snw Symptoms: are unchanged snw Bed/Room Type: Standard snw Room Assignment: snw Diagnosis - Chest pain, unspecified snw - Diabetes mellitus due to underlying condition without complications snw Forms: - Medication Reconciliation Form snw - SBAR form snw Signatures: Dispatcher [employer] Kaylen Dahl FNP-C FNP-Csnw Mary Grace Marina, BRANDON RN iw Osvaldo Murillo MD MD [id number] Jerzy Naik RN RN os Corrections: (The following items were deleted from the chart) 09:15 09:05 Aspirin PO Chewable Tablet 324 mg PO once; 81 mg tablets x 4 ordered. snw snw
--- NOTE | 2022-08-10 09:50 | RAD REPORT ---
EXAM DESCRIPTION: RAD - Chest Single View - 08/10/2022 9:45 am CLINICAL HISTORY: CHEST PAIN COMPARISON: Chest Single View dated 11/05/2020; Chest Single View dated 11/02/2020; Chest Single View d ated 02/16/2020; Chest Single View dated 03/25/2018 FINDINGS: Lines: None. Lungs: No evidence of edema or pneumonia. Pleural: No significant pleural effusions or pneumothorax. Cardiac: The heart size is within normal limits. Mediastinum: Within normal limits. Bones: No acute fractures. Other: None IMPRESSION: No acute cardiopulmonary disease.
[2022-08-10] MEDS ORDERED: FENTANYL CITR 100 MCG/2 ML ONE ×3 (09:59→15:30)
[2022-08-10] MEDS ORDERED: ASPIRIN 81 MG CHEWABLE TABLET ONE (10:16)
[2022-08-10] MEDS ORDERED: HYDROMORPHONE HCL 1 MG/ML INJ ONE (10:23)
[2022-08-10 11:29] LABS: Absolute Lymphocytes (CBC) 2.1 K/uL (0.7-4.9); Hematocrit 41.2 % (39.6-49.0); Lymphocytes % 28.7 % (15.3-44.8); MCV 83.5 fL (80-100); MPV 8.7 fL (7.6-11.3); RBC Red Blood Cell Count 4.93 M/uL (4.33-5.43)
[2022-08-10 11:35] LABS: Protime INR 0.98
[2022-08-10 11:48] LABS: ALT/SGPT 159 U/L (16-61); AST/SGOT 51 U/L (15-37); Albumin 3.8 g/dL (3.4-5.0); Alkaline Phosphatase 77 U/L (45-117); BUN Blood Urea Nitrogen 13 mg/dL (7-18); Bicarbonate 25 mEq/L (21-32); Bilirubin Direct < 0.1 mg/dL (0-0.2); Bilirubin Indirect, Calculated ND mg/dL (0.2-0.8); Bilirubin Total 0.3 mg/dL (0.2-1.0); Glomerular Filtration Rate 96 ml/min (=/>90); Glucose Level 291 mg/dL (74-106); Magnesium 1.8 mg/dL (1.6-2.4); NT PRO-BNP 54 pg/mL (<125); Potassium 4.4 mEq/L (3.5-5.1); Protein, Total 7.2 g/dL (6.4-8.2); Sodium Level 134 mEq/L (136-145); Troponin High Sensitivity 11.4 pg/mL (<58.9)
[2022-08-10] MEDS ORDERED: MORPHINE 4 MG/ML SYR IV PRN (12:08)
[2022-08-10] MEDS ORDERED: ACETAMINOPHEN 500 MG TAB PO PRN (12:08)
--- NOTE | 2022-08-10 12:12 | P.HP ---
Patient History Allergies No Known Allergies Allergy (Verified 05/08/19 14:44) Home Medications: Metformin HCl 1,000 mg PO BID 02/16/20 gemfibroziL [Lopid*] 600 mg PO BID 02/16/20 Clopidogrel Bisulfate [Plavix*] 75 mg PO BEDTIME 04/18/20 Insulin Glargine/Lixisenatide [Soliqua 100 Unit-33 Mcg/ml Pen] 50 units SQ BEDTIME 11/06/20 Aspirin [Aspirin EC 81 MG] 81 mg PO DAILY #30 tablet. 11/08/20 Atorvastatin Calcium [Lipitor] 80 mg PO BEDTIME #30 tab 11/08/20 Ticagrelor [Brilinta] 60 mg PO BID 30 Days #60 tablet 11/08/20 - Past Medical/Surgical History Diabetic: Yes -: Diabetes mellitus type 2 insulin-dependent -: Morbid obesity -: Mixed hyperlipidemia -: CAD with prior stent -: Obesity -: History pancreatitis -: Tobacco abuse -: Left ankle Sx and Right Knee Psychosocial/ Personal History: Patient is - Family History Father Medical History: Heart disease - Social History Alcohol use: Yes CD- Drugs: No Caffeine use: Yes Physical Examination - Studies Laboratory Data (last 24 hrs) 08/10/22 11:15: PT 10.8, INR 0.98 08/10/22 11:15: WBC 7.20, Hgb 13.6, Hct 41.2, Plt Count 177 08/10/22 11:15: Sodium 134 L, Potassium 4.4, BUN 13, Creatinine 1.03, Glucose 291 H, Magnesium 1.8, Total Bilirubin 0.3, AST 51 H, ALT 159 H, Alkaline Phosphatase 77 Assessment & Plan - Advance Directives Does patient have a Living Will: No Does patient have a Durable POA for Healthcare: No
[2022-08-10] MEDS ORDERED: HEPA 1000U/500MLS 2,000 UNIT/1,000 ML BAG IV ONE (13:51)
[2022-08-10] MEDS ORDERED: HEPARIN 10,000 UNIT/10 ML VIAL IV ONE ×2 (13:52→15:31)
[2022-08-10] MEDS ORDERED: MIDAZOLAM HCL 2 MG/2 ML INJ ONE (13:52)
[2022-08-10] MEDS ORDERED: HEPARIN 5000 UNIT/ML 1 ML VIAL ONE (13:52)
[2022-08-10] MEDS ORDERED: VERAPAMIL HCL 10 MG/4 ML VIAL IV ONE (13:52)
[2022-08-10] MEDS ORDERED: NA CHLORIDE 0.9% 500 ML ONE (13:53)
[2022-08-10] MEDS ORDERED: TICAGRELOR 90 MG TABLET PO ONE (13:53)
[2022-08-10] MEDS ORDERED: ATROPINE SULF 1 MG/10 ML SYR IV ONE (13:53)
[2022-08-10] MEDS ORDERED: LIDOCAINE 1% 20 ML MDV ONE (14:00)
[2022-08-10] MEDS ORDERED: CLOPIDOGREL 75 MG TABLET ONE (15:22)
[2022-08-10] MEDS ORDERED: ONDANSETRON 4 MG/2 ML VIAL ONE (15:31)
[2022-08-10 15:35] VITALS: TEMP 98.1
[2022-08-10] MEDS ORDERED: FAMOTIDINE 20 MG TAB PO ONE (16:00)
[2022-08-10 18:36] VITALS: BP 130/86; O2SAT 98
[2022-08-10] MEDS ORDERED: METOPROLOL TAR 50 MG TAB PO SCH (21:00)
--- NOTE | 2022-08-10 21:25 | OP ---
Date of Procedure: 08/10/2022 Surgeon: MONIQUE SANABRIA Procedures Performed: 1.Selective coronary angiogram. 2.Left heart catheterization. 3.PCI of severe proximal diagonal 2 stenosis, probably the culprit for his symptoms. I used 2.25 x 15 mm Synergy drug-eluting stent. Indication: Unstable angina symptoms. Access: Right radial artery 6-Palauan closed with TR band. Complications: None. Estimated Blood Loss: Bleeding less than 20 mL. Description Of Procedure: After risks, benefits, and alternatives were explained, the patient agreed to procedure and signed informed consent. The patient was brought into cardiac catheterization labo [facility] and prepped and draped in usual sterile fashion. I then used fentanyl and Versed in increment al doses to achieve adequate moderate sedation. Total time of sedation was 60 minutes. Then, I used a pediatric micropuncture kit to access right radial artery, placed a 6-Palauan [place] sheath and u sed also ultrasound guidance. Then I took a 5-Palauan [place] 4 catheter into aortic root and engaged l eft main and right coronary artery. Then I got good pictures so I exchanged for 6-Palauan JL 3.5 cath eter, engaged the left main, took standard views and the same catheter was pushed in the LV and LVEDP was borderline elevated at around 22 mmHg. Pullback did not record any gradient. Then, I exchanged for a 6-Palauan JR4 catheter into the aortic root, engaged RCA, and took standard views. I then gave systemic heparin to assure ACT level above 250 and then I took a XB3.5 guide into the aortic root an d engaged the left main and then I took a short Runthrough wire into the LAD and into the diagonal 2 branch. Lesions were predilated and then I placed a 2.25 x 15 mm Synergy drug-eluting stent with acc eptable result. There was still about 20% residual restenosis due to heavy calcification; however, i t is a small vessel and to avoid perforation, decided to stop as there is JAZMYNE-3 flow and then remove d the wire. Final angiogram was satisfactory. I then removed the guide and the catheter and sheath and placed TR band with good hemostasis. Systemic heparin was given during the intervention time to assure ACT level above 250 and he was loaded with 600 mg of Plavix and 325 mg of aspirin. After the closure, the patient was stable and sent to recovery in stable condition. Findings: 1.Left main: Has diffuse 10% stenosis in LAD, proximal 30%, mid segment has luminal irregularities. Diagonal 1 branch has proximal 50% stenosis and diagonal 2 branch has proximal 99% stenosis, status post successful PCI as above. The rest of the LAD is with luminal regularities. 2.Left circumflex: Very small, nondominant with luminal irregularities, less than 1.5 mm vessel. 3.RCA: Very large and dominant with proximal to mid 40% stenosis and widely patent stent from mid t o distal and then the PLB and PDA, both have luminal irregularities. Conclusion: 1.Severe proximal diagonal 2 branch stenosis status post successful percutaneous coronary interventi on as above. 2.Patent right coronary artery stent. 3.Moderate coronary artery disease elsewhere. Plan: Aspirin, Plavix, and high-dose statin and follow up with me in the office in 4 weeks. SR/MODL Voice ID: [id number] Report ID: [id number]
[2022-08-11] MEDS ORDERED: ASPIRIN EC 81 MG TAB PO SCH (09:00)
[2022-08-11] MEDS ORDERED: ENOXAPARIN 40 MG/0.4 ML SQ SCH (09:00)
--- NOTE | 2022-08-13 17:57 | EKG ---
Test Date: 2022-08-10 Test Time: 09:14:02 Wheel Tuner: AURELIO MEASUREMENT RESULTS: Intervals: Rate: 88 MD: 142 QRSD: 84 QT: 334 QTc: 404 Ethel: P: 30 MD: 142 QRS: 4 T: 49 INTERPRETIVE STATEMENTS: Normal sinus rhythm Inferior infarct, age undetermined Abnormal ECG Compared to ECG 11/06/2020 03:55:14 No significant changes Electronically Signed On 08-13-22 17:52:14 CDT by Julio Cesar Martínez
== END 2022-08-10 19:38 | disposition home or self-care (01) ==
LOC: ER 08:57 → ERHOLD 12:08
PROVIDERS: ADMIT Hospitalist; ATTEND Hospitalist
DX: I25.10 Atherosclerotic heart disease of native coronary artery without angina pectoris (principal); E78.2 Mixed hyperlipidemia; E11.9 Type 2 diabetes mellitus without complications; I25.2 Old myocardial infarction; E66.01 Morbid (severe) obesity due to excess calories; Z68.37 Body mass index [BMI] 37.0-37.9, adult; Z95.5 Presence of coronary angioplasty implant and graft; Z87.19 Personal history of other diseases of the digestive system; Z79.82 Long term (current) use of aspirin; Z79.84 Long term (current) use of oral hypoglycemic drugs; Z79.4 Long term (current) use of insulin; Z79.899 Other long term (current) drug therapy; Z82.49 Family history of ischemic heart disease and other diseases of the circulatory system
CPT/HCPCS: 93005; 85025; 80048; 36415; 83735; 85610; 85379; 80076; 85347 ×2; 84484 ×2; 83880; 71045; 92928; 93458; 76937; 96375; 96374; 99285; C1893; Q9967; C1725; J1644; J2001; J2250; J3010 ×3; J1170; G0378 ×3; J7040; J0461; J2405

== ENCOUNTER 2023-01-26 14:18 | Emergency (ER) | payer SELFPAY ==
--- OUTSIDE RECORDS SUMMARY | 2023-01-26 14:21 | XMS REPORT | Continuity of Care Document ---
:1985 Author Organization [facility] t Address [address] [place] [address] Care Team Providers Name Role Phone MONTEZ ALFARO Primary Care Physician Unavailable COCO CARRILLO Attending Clinician Unavailable Coco Anaya Attending Clinician COCO CARRILLO Admitting Clinician Unavailable Problems Condition Condition Condition Status Onset Resolution Last Treating Co mments Source Name Details Category Date Date Treatment Clinician Date No known No known Disease Unive rs active active ity of problems problems [facility] Allergies, Adverse Reactions, Alerts Allergy Allergy Status Severity Reaction(s) Onset Inactive Treating Comm ents Source Name Type Date Date Clinician [facility] [facility] Active Swelling Univer s E INGREDI 3-28 ity of 00:00: [place] 00 [facility] [place] Propensi Active Swelling Univ ers e ty to 3-28 ity of adverse 00:00: [place] reaction 00 Medical s Branch Social History Social Habit Start Date Stop Date Quantity Comments Source Exposure to Not sure [facility] SARS-CoV-2 (event) Medica l Branch Sex Assigned [birth year] [facility] 00:00:00 00:00:00 Medical Branch Smoking Status Start Date Stop Date Source Unknown if ever smoked [facility] Medications Ordered Filled Start Stop [...] tablet 05/23/21 at 0015, ADITI ibuprofen Yes [id number] 800mg Take 1 Univers 800 mg 05-23 [...] 05:00:00 168 mm[Hg] Univer sity of pressure [facility] Diastolic blood 2021-05-23 05:00:00 110 mm[Hg] [facility] [place] Heart rate 2021-05-23 05:00:00 103 /min [facility] Respiratory rate 2021-05-23 05:00:00 20 /min [facility] Oxygen saturation in 2021-05-23 05:00:00 96 /min [facility] Arterial blood by [facility] Pulse oximetry [place] Body temperature 2021-05-23 03:40:00 37 Jena [facility] Body height 2021-05-23 03:40:00 180.3 cm [facility] Body weight 2021-05-23 03:40:00 123.378 kg [facility] BMI 2021-05-23 03:40:00 37.94 kg/m2 [facility] Procedures Procedure Date / Time Performed Performing Clinician Sour e XR KNEE 3 VW RIGHT 2021-05-23 04:05:28 Coco Carrillo [facility] ty [facility] URIC ACID 2021-05-23 04:04:00 Coco Carrillo [facility] BASIC METABOLIC PANEL 2021-05-23 04:04:00 Coco Carrillo [facility] (NA, K, CL, CO2, Medical Branch GLUCOSE, BUN, CREATININE, CA) CBC WITH DIFF 2021-05-23 04:04:00 Coco Carrillo [facility] NOTICE OF PRIVACY 2021-05-23 03:35:54 Doctor Unassigned, No [facility] PRACTICES Name [facility] CONSENT/REFUSAL FOR 2021-05-23 03:35:32 Doctor Unassigned, No [facility] DIAGNOSIS AND Name [facility] TREATMENT Encounters Start End Encounter Admission Attending Care Care Encounter Source Date/Time Date/Time Type Type Clinicians Facility Department ID 2021-05-22 2021-05-23 Emergency X [facility] ERT [id number] Univers 22:38:00 00:29:[address] [facility] 2021-05-22 2021-05-23 Emergency [facility] [id number] Univers 22:38:00 00:29:00 Coco BENAVIDES [id number] i [facility] [id number] [facility] [id number] [place] [id number] Branch Results Test Description Test Time Test Comments Results Result Comments Source URIC ACID 2021-05-23 04:55:54 Test Item Value Reference Range Interpretation Comme nts URIC ACID (test code = 2386770472) 7.2 mg/dL 3.6-8.0 Lab Interpretation (test code = 33018-2) Normal [facility] (NA, K, CL, CO2, GLUCOSE, BUN, CREATININE, CA)2021-05-23 04:33:48 Test Item Value Reference Range Interpretation Comments NA (test code = 136 mmol/L 135-145 6936061403) K (test code = 4.2 mmol/L 3.5-5.0 4473489864) CL (test code = 100 mmol/L 98-108 2051722762) CO2 TOTAL (test code = 22 mmol/L 23-31 L 9260470351) AGAP (test code = 2-16 7683911507) BUN (test code = 17 mg/dL 7-23 0649208807) GLUCOSE (test code = 349 mg/dL 70-110 H 7829224483) CREATININE (test code = 0.86 mg/dL 0.60-1.25 6750061515) CALCIUM (test code = 8.9 mg/dL 8.6-10.6 2332200004) eGFR (test code = mL/min/1.73m2 0217868219) ANG (test code = ANG) Association of [...] tests). Lab Interpretation Abnormal (test code = 90299-4) [facility] WITH [id number] 04:31:12 Test Item Value Reference Range Interpretation Comments WBC (test code = See_Comment [Automated message] 6690-2) The system [employer] generated this result transmitted ref erence range: 4.20 - 1 0.70 10*3/?L. The re ference range was not u sed to interpret this result as normal/abnor mal. RBC (test code = See_Comment [Automated message] 789-8) The system [employer] generated this result transmitted ref erence range: [...] RDW-SD (test code 40.6 fL 38.5-51.6 = 26333-2) RDW-CV (test code 13.1 % 12.1-15.4 = 788-0) PLT (test code = See_Comment [Automated message] 777-3) The system [employer] generated this result transmitted ref erence range: 150 - 32 8 10*3/?L. The re ference range was not u sed to interpret this result as normal/abnor mal. MPV (test code = 11.1 fL 9.8-13.0 50979-3) NRBC/100 WBC (test See_Comment [Automat ed message] code = 1719933350) The syste [employer] which generated this result transmitted ref erence range: 0.0 - 10 .0 /100 WBCs. The refer ence range was not u sed to interpret this result as normal/abnor mal. NRBC x10^3 (test <0.01 See_Comment [Automated message] code = 0935088844) The syste m which generated this result transmitted ref erence range: 10*3/?L. The reference range was not used to interpr et this result as normal/abnormal . GRAN MAT (NEUT) % 60.3 % (test code = 017-8) IMM GRAN % (test 0.50 % code = 0671913146) LYMPH % (test code 24.4 % = 736-9) MONO % (test code 8.9 % = 5905-5) EOS % (test code = 5.5 % 713-8) BASO % (test code 0.4 % = 706-2) GRAN MAT 4.56 10*3/uL 1.99-6.95 x10^3(ANC) (test code = 9759228562) IMM GRAN x10^3 0.04 10*3/uL 0.00-0.06 (test code = 6658767208) LYMPH x10^3 (test 1.85 10*3/uL 1.09-3.23 code = 731-0) MONO x10^3 (test 0.67 10*3/uL 0.36-1.02 code = 742-7) EOS x10^3 (test 0.42 10*3/uL 0.06-0.53 code = 711-2) BASO x10^3 (test 0.03 10*3/uL 0.01-0.09 code = 704-7) [facility]"
[2023-01-26] MEDS ORDERED: LIDOCAINE 1% MPF 30 ML VIAL ONE (14:56)
[2023-01-26] MEDS ORDERED: TDAP (DIPHTH,PERTUSS(ACELL),TET VAC) 0.5 ML VIAL IMVAC ONE (14:56)
[2023-01-26] MEDS ORDERED: HYDROCODONE/APAP 7.5/325 MG TAB ONE (15:13)
--- NOTE | 2023-01-26 15:31 | EDPHYS ---
Physician Documentation [facility] Name: Mat Black Age: 37 yrs Sex: Male : 1985 Arrival Date: 01/26/2023 Time: 14:18 Bed 10 Private MD: Bong Keene T ED Physician Chad Nowak HPI: 01/26 14:28 This 37 yrs old Male presents to ER via Ambulatory with complaints of Laceration To [facility] Hand. 14:28 The patient has a laceration related to: doing yard work, [employer], occurred at home, [facility] and there are no complicating factors. The injury was accidental. The laceration(s) is(are) located on the left hand. Onset: The symptoms/episode began/occurred acutely. Associated signs and symptoms: Pertinent negatives: dizziness, heavy bleeding, loss of consciousness, numbness distal to injury, suspected foreign body. Patient is diabetic and on blood thinners. Historical: - Allergies: 14:29 Lisinopril; ld1 - PMHx: 14:29 HEART ATTACKS; Diabetes - IDDM; Hyperlipidemia; Hypertension; NSTEMI x 2; ld1 - PSHx: 14:29 cardiac stents; cardiac stents x 2; Left ankle; right knee; ld1 - Immunization history:: Adult Immunizations up to date. - Social history:: Smoking status: Patient reports the use of cigarette tobacco products, Patient uses alcohol, on a daily basis. ROS: 14:28 Constitutional: Negative for fever, chills, and weight loss, Eyes: Negative for injury, [facility] pain, redness, and discharge, Neck: Negative for injury, pain, and swelling, Cardiovascular: Negative for chest pain, palpitations, and edema, Respiratory: Negative for shortness of breath, cough, wheezing, and pleuritic chest pain, Back: Negative for injury and pain, MS/Extremity: Negative for injury and deformity, Neuro: Negative for headache, weakness, numbness, tingling, and seizure, 14:28 Skin: Positive for laceration(s), of the left hand, 14:28 All other systems are negative, Exam: 14:28 Constitutional: This is a well developed, well nourished patient who is awake, alert, [facility] and in no acute distress. Head/Face: Normocephalic, atraumatic. Eyes: Pupils equal round and reactive to light, extra-ocular motions intact. Lids and lashes normal. Conjunctiva and sclera are non-icteric and not injected. Cornea within normal limits. Periorbital areas with no swelling, redness, or edema. Neck: Trachea midline, no thyromegaly or masses palpated, and no cervical lymphadenopathy. Supple, full range of motion without nuchal rigidity, or vertebral point tenderness. No Meningismus. Cardiovascular: Regular rate and rhythm with a normal S1 and S2. No gallops, murmurs, or rubs. Normal PMI, no JVD. No pulse deficits. Respiratory: Lungs have equal breath sounds bilaterally, clear to auscultation and percussion. No rales, rhonchi or wheezes noted. No increased work of breathing, no retractions or nasal flaring. Abdomen/GI: Soft, non-tender, with normal bowel sounds. No distension or tympany. No guarding or rebound. No evidence of tenderness throughout. Back: No spinal tenderness. No costovertebral tenderness. Full range of motion. MS/ Extremity: Pulses equal, no cyanosis. Neurovascular intact. Full, normal range of motion. Neuro: Awake and alert, GCS 15, oriented to person, place, time, and situation. Motor strength 5/5 in all extremities. Sensory grossly intact. Normal gait. 14:28 Skin: injury, laceration(s), the wound is approximately 2 cm(s), of the base of the dorsal thumb, Vital Signs: 14:28 BP 153 / 109; Pulse 96; Resp 18; Temp 98.2(TE); Pulse Ox 100% on R/A; Weight 120.2 kg; ld1 Height 5 ft. 10 in. ; Pain 0/10; 14:28 Body Mass Index 38.02 (120.20 kg, 177.8 cm) ld1 14:28 Pain Scale: Adult ld1 Laceration: 14:28 Wound Repair of 2cm ( 0.8in ) subcutaneous laceration to left hand. Distal jh7 neuro/vascular/tendon intact. Anesthesia: Local anesthetic administered with 4 mls of 1% lidocaine. Wound prep: Moderate cleansing by me. Skin closed with 4 5-0 Prolene using simple sutures and sterile technique. Dressed with non-adherent dressing. Patient tolerated well. MDM: 14:32 Patient medically screened. [facility] 15:50 Differential diagnosis: superficial laceration, vascular injury. Data reviewed: vital [facility] signs, nurses notes. I considered the following discharge prescriptions or medication management in the emergency department Medications were administered in the Emergency Department. See MAR. Historians other than the Patient: Spouse/Significant Other: . Care significantly affected by the following chronic conditions: Diabetes, Hypertension, Congestive Heart Failure. Counseling: I had a detailed discussion with the patient and/or guardian regarding the historical points, exam findings, and any diagnostic results supporting the discharge/admit diagnosis, the need for outpatient follow up, for suture removal in 7-10 days, to return to the emergency department if symptoms worsen or persist or if there are any questions or concerns that arise at home. Response to treatment: the patient's symptoms have markedly improved after treatment. Special discussion: I discussed in detail with the patient the higher chance of wound infection based on his presenting history. 01/26 14:36 Order name: Dressing - Wound; Complete Time: 14:49 [facility] 01/26 14:36 Order name: Gloves, Sterile; Complete Time: 14:49 [facility] 01/26 14:36 Order name: Prolene, Sutures; Complete Time: 14:49 7 01/26 14:36 Order name: Setup Suture Tray; Complete Time: 14:49 7 Administered Medications: 14:45 CANCELLED (Duplicate Order): tetanus-diphtheria toxoidadult 0.5 ml IM once; Provide cm10 Vaccine Information Statement (VIS). 14:49 Drug: Boostrix Tdap IM 0.5 ml IM once; as a single dose Route: IM; Site: left deltoid; cm10 15:48 Follow up: Response: (VIS) Vaccine information sheet provided today. Questions and/or cm10 concerns addressed. VIS edition date: Sep 30, 2020.; No adverse reaction 15:01 Drug: Hydrocodone-Acetaminophen PO (7.5 mg-325 mg) 1 tabs PO once Route: PO; cm10 15:48 Follow up: Response: No adverse reaction cm10 15:48 Drug: Lidocaine Infiltration (1 %) 20 ml 20 ml Infiltration once; to bedside {Note: cm10 Given by provider.} Volume: 20 ml; Route: Infiltration; Disposition Summary: 01/26/23 15:30 Discharge Ordered Notes: Location: Home [facility] Problem: new [facility] Symptoms: have improved [facility] Condition: Stable [facility] Diagnosis - Laceration without foreign body of left thumb without damage to nail [facility] Followup: [facility] - With: Bong Keene MD - When: 2 - 3 days - Reason: Recheck today's complaints Discharge Instructions: - Discharge Summary Sheet [facility] - Laceration Care, Adult [facility] Forms: - Medication Reconciliation Form [facility] - Thank You Letter [facility] - Antibiotic Education [facility] - Patient Portal Instructions [facility] - Leadership Thank You Letter [facility] Prescriptions: - Cephalexin 500 mg Oral capsule - take 1 capsule ORAL route every 12 hours for 7 days; 14 capsule; Refills: 0, jh7 Product Selection Permitted Signatures: Sidra Griggs RN RN ld1 Shandra Berger FNP [employer] 7 Lisa Kerr RN RN cm10 Corrections: (The following items were deleted from the chart) 14:45 14:36 Tetanus-Diphtheria Toxoid IM Adult 0.5 ml IM once; Provide Vaccine Information cm10 Statement (VIS). ordered. [facility]
--- NOTE | 2023-01-26 15:31 | ER ---
Nurse's Notes [facility] Name: Mat Black Age: 37 yrs Sex: Male : 1985 Arrival Date: 01/26/2023 Time: 14:18 Bed 10 Private MD: Bong Keene T Diagnosis: Laceration without foreign body of left thumb without damage to nail Presentation: 01/26 14:28 Chief complaint: Patient states: Laceration to left hand - taylor saw. Pt reports being ld1 on blood thinners. Coronavirus screen: At this time, the client does not indicate any symptoms associated with coronavirus-19. Ebola Screen: No symptoms or risks identified at this time. Complicating Factors: There are no complicating factors for this patient. Initial Sepsis Screen: Does the patient meet any 2 criteria? No. Patient's initial sepsis screen is negative. Does the patient have a suspected source of infection? No. Patient's initial sepsis screen is negative. Risk Assessment: Do you want to hurt yourself or someone else? Patient reports no desire to harm self or others. Onset of symptoms was January 26, 2023. 14:28 Method Of Arrival: Ambulatory ld1 14:28 Acuity: LILA 4 ld1 Triage Assessment: 14:29 General: Appears in no apparent distress. comfortable, Behavior is calm, cooperative, ld1 appropriate for age. Pain: Complains of pain in left hand Pain does not radiate. Pain currently is 9 out of 10 on a pain scale. Quality of pain is described as throbbing, Pain began suddenly. EENT: No signs and/or symptoms were reported regarding the EENT system. Neuro: Level of Consciousness is awake, alert, obeys commands, Oriented to person, place, time, situation. Cardiovascular: Capillary refill < 3 seconds Patient's skin is warm and dry. Respiratory: Airway is patent Respiratory effort is even, unlabored. GI: Abdomen is flat, non-distended. : No signs and/or symptoms were reported regarding the genitourinary system. Derm: No signs and/or symptoms reported regarding the dermatologic system. Musculoskeletal: No signs and/or symptoms reported regarding the musculoskeletal system. Injury Description: Laceration sustained to left hand. Historical: - Allergies: 14:29 Lisinopril; ld1 - PMHx: 14:29 HEART ATTACKS; Diabetes - IDDM; Hyperlipidemia; Hypertension; NSTEMI x 2; ld1 - PSHx: 14:29 cardiac stents; cardiac stents x 2; Left ankle; right knee; ld1 - Immunization history:: Adult Immunizations up to date. - Social history:: Smoking status: Patient reports the use of cigarette tobacco products, Patient uses alcohol, on a daily basis. Screenin:[address] [facility] ED Fall Risk Assessment (Adult) History of falling in the last 3 months, cm10 including since admission No falls in past 3 months (0 pts) Confusion or Disorientation No (0 pts) Intoxicated or Sedated No (0 pts) Impaired Gait No (0 pts) Mobility Assist Device Used No (0 pt) Altered Elimination No (0 pt) Score/Fall Risk Level 0 - 2 = Low Risk Oriented to surroundings, Maintained a safe environment, Hourly rounding (assess needs \T\ fall precautionary measures) done. Abuse screen: Denies threats or abuse. Denies injuries from another. Nutritional screening: No deficits noted. Tuberculosis screening: No symptoms or risk factors identified. Assessment: 15:15 General: Appears in no apparent distress. comfortable, Behavior is calm, cooperative. cm10 Neuro: No deficits noted. Level of Consciousness is awake, alert, obeys commands, Oriented to person, place, time, situation. Respiratory: No deficits noted. Airway is patent Respiratory effort is even, unlabored, Respiratory pattern is regular, symmetrical. Derm: Wound noted left hand Wound is Laceration. Injury Description: Laceration is clean, 0.5 to 2.5 cm long, not bleeding. Vital Signs: 14:28 BP 153 / 109; Pulse 96; Resp 18; Temp 98.2(TE); Pulse Ox 100% on R/A; Weight 120.2 kg; ld1 Height 5 ft. 10 in. ; Pain 0/10; 14:28 Body Mass Index 38.02 (120.20 kg, 177.8 cm) ld1 14:28 Pain Scale: Adult ld1 ED Course: 14:20 Patient arrived in ED. mr 14:20 Celina Ramesh MD is Private Physician. mr 14:20 Bong Keene MD is Private Physician. mr 14:29 Triage completed. ld1 14:29 Arm band placed on right wrist. ld1 14:32 [facility] 14:32 Chad Nowak MD is Attending Physician. [facility] 14:41 Lisa Kerr, RN is Primary Nurse. cm10 15:15 Patient has correct armband on for positive identification. Bed in low position. Call cm10 light in reach. Side rails up X2. Provided Education on: ER process and procedures. . 15:17 Patient did not have IV access during this emergency room visit. cm10 15:30 Bong Keene MD is Referral Physician. [facility] 15:53 No provider procedures requiring assistance completed. Dressings: Kerlix X 1; left hand cm10 non-adherent dressing x 1 left hand. Administered Medications: 14:45 CANCELLED (Duplicate Order): tetanus-diphtheria toxoidadult 0.5 ml IM once; Provide cm10 Vaccine Information Statement (VIS). 14:49 Drug: Boostrix Tdap IM 0.5 ml IM once; as a single dose Route: IM; Site: left deltoid; cm10 15:48 Follow up: Response: (VIS) Vaccine information sheet provided today. Questions and/or cm10 concerns addressed. VIS edition date: Sep 30, 2020.; No adverse reaction 15:01 Drug: Hydrocodone-Acetaminophen PO (7.5 mg-325 mg) 1 tabs PO once Route: PO; cm10 15:48 Follow up: Response: No adverse reaction cm10 15:48 Drug: Lidocaine Infiltration (1 %) 20 ml 20 ml Infiltration once; to bedside {Note: cm10 Given by provider.} Volume: 20 ml; Route: Infiltration; Medication: 15:15 Vaccine Information Statement (VIS) provided today. Questions and/or concerns cm10 addressed. VIS edition date: September 30, 2020. Outcome: 15:30 Discharge ordered by . 7 15:53 Discharged to home ambulatory, with significant other, cm10 15:53 Condition: good 15:53 Discharge instructions given to patient, significant other, Instructed on discharge instructions, follow up and referral plans. medication usage, wound care, Demonstrated understanding of instructions, follow-up care, medications, wound care, Prescriptions given X 1, 15:53 Patient left the ED. cm10 Signatures: Marychuy Gipson, Reg Reg mr Sidra Griggs, RN RN ld1 Shandra Berger FNP OCCUPATIONAL HEALTH TECHNICIAN [id number] Lisa Kerr, RN RN cm10
[2023-01-26 16:21] VITALS: BP 153/109; TEMP 98.2; O2SAT 100
== END 2023-01-26 15:53 | disposition home or self-care (01) ==
LOC: ER 14:18
PROC: 0HQGXZZ Repair Left Hand Skin, External Approach (ICD-10-PCS; principal; 2023-01-26)
DX: S61.412A Laceration without foreign body of left hand, initial encounter (principal)
CPT/HCPCS: 96372; 99284; J2001